=== PATIENT | male | born 1960 | race Caucasian/White ===

== ENCOUNTER → 2019-06-29 | Outpatient (CLI) | payer MEDICARE, SELFPAY | PROVIDERS: PCP Internal Medicine Nephrology; Visit Provider Emergency Medicine | DX: R35.1 Nocturia (principal); R06.02 Shortness of breath; I34.0 Nonrheumatic mitral (valve) insufficiency; I35.1 Nonrheumatic aortic (valve) insufficiency | CPT/HCPCS: 93306 ==

== ENCOUNTER 2020-02-16 13:11 | Outpatient (CLI) | payer MEDICARE, SELFPAY ==
--- NOTE | 2020-02-16 | ECHO_ITS ---
Patient Info Name: Ga Ashley Age: 59 years : 1960 Gender: Male Ht: 66 in Wt: 240 lbs BSA: 2.30 m2 HR: 80 bpm BP: 152 / 84 mmHg Heart Rhythm: Sinus Rhythm Technical Quality: Good Exam Date: 02/16/2020 1:49 PM Exam Location: [facility] Patient Status: Outpatient Admit Date: 02/16/2020 Staff Ordering Physician: Yo Marin MD Box Loader: Jesica Bynum RDCS Attending Provider: Yo Marin MD Referring Physician: Tomas PEOPLES; Exam Type: CA echo doppler color flow Study Info Indications - sob Complete two-dimensional, color flow and Doppler transthoracic echocardiogram is performed. Summary 1. Left ventricular chamber dimension is normal. 2. Left ventricular systolic function is normal, estimated at 60-65%. 3. There is moderately increased left ventricular wall thickness. 4. The left ventricular diastolic function is grade I diastolic dysfunction. 5. E/e' 6 is not elevated. 6. There is mild aortic valve sclerosis. 7. There is trace tricuspid valve regurgitation. 8. No pulmonary hypertension, estimated pulmonary arterial systolic pressure is 27 mmHg. Left Ventricle E/e' 6 is not elevated. Left ventricular chamber dimension is normal. Left ventricular systolic function is normal, estimated at 60-65%. There is moderately increased left ventricular wall thickness. The left ventricular diastolic function is grade I diastolic dysfunction. Right Ventricle Right ventricular chamber dimension is normal. Right ventricular systolic function is normal. Left Atria Left atrial chamber dimension is normal. Right Atria Right atrial chamber dimension is normal. Aortic Valve The aortic valve is trileaflet. There is mild aortic valve sclerosis. There is no aortic valve stenosis. There is no aortic valve regurgitation. Pulmonic Valve There is no pulmonic regurgitation. Mitral Valve There is no mitral valve stenosis. There is no mitral valve regurgitation. Tricuspid Valve There is trace tricuspid valve regurgitation. No pulmonary hypertension, estimated pulmonary arterial systolic pressure is 27 mmHg. Pericardium/Pleural There is no pericardial effusion. Inferior Vena Cava Normal inferior vena cava with >50% collapse upon inspiration consistent with normal right atrial pressure, 5 mmHg. Aorta The aortic root size at the sinus of Valsalva is normal. Left Ventricular Outflow Tract Name Value Normal LVOT 2D LVOT Diameter 2.0 cm LVOT Doppler LVOT Peak Gradient 9 mmHg LVOT Mean Gradient 5 mmHg LVOT VTI 25 cm LVOT VTI/AV VTI Ratio 0.7 LVOT Stroke Volume 76 ml LVOT CO 19.7 l/min LVOT CI 8.6 l/min/m2 Pulmonic Valve Name Value Normal PV Doppler
== END 2020-02-16 13:12 | disposition home or self-care (01) ==
PROVIDERS: PCP Emergency Medicine; Visit Provider Emergency Medicine
DX: R06.02 Shortness of breath (principal); R06.01 Orthopnea; I35.1 Nonrheumatic aortic (valve) insufficiency
CPT/HCPCS: 93306

== ENCOUNTER 2020-06-07 09:34 | Outpatient (CLI) | payer MEDICARE, SELFPAY ==
--- NOTE | 2020-06-07 11:00 | NEURO_ITS ---
Patient Number: [id number] Impression: # Insulin dependent diabetic complains of increasing numbness and weakness of hands. # Right Carpal Tunnel Syndrome. # Relative neuropathy involving median and ulnar nerves. # Abnormal needle/EMG that is neurogenic. Nerve Conduction Studies Anti Sensory Summary Table Stim Site NR Peak (ms) P-T Amp (?V) Site1 Site2 Delta-P (ms) Dist (cm) Hamilton (m/s) Right Median Anti Sensory (2-3nd Digit) Wrist 7.6 15.3 Wrist 2-3nd Digit 7.6 14.0 18 Wrist 6.3 33.8 Wrist 2-3nd Digit 7.6 14.0 18 Right Radial Anti Sensory (Base 1st Digit) Wrist 2.5 11.5 Wrist Base 1st Digit 2.5 0.0 Right Ulnar Anti Sensory (5th Digit) Wrist 6.3 26.0 Wrist 5th Digit 6.3 14.0 22 Motor Summary Table Stim Site NR Onset (ms) O-P Amp (mV) Site1 Site2 Delta-0 (ms) Dist (cm) Hamilton (m/s) Right Median Motor (Abd Poll Brev) Wrist 5.7 1.5 Elbow Wrist 6.3 27.0 43 Elbow 12.0 1.0 Right Ulnar Motor (Abd Dig Minimi) Wrist 3.4 2.5 A Elbow Wrist 6.8 29.0 43 A Elbow 10.2 1.0 B Elbow Wrist 4.8 21.0 44 B Elbow 8.2 0.2 F Wave Studies NR F-Lat (ms) L-R F-Lat (ms) Right Median (Mrkrs) (Abd Poll Brev) 35.96 Right Ulnar (Mrkrs) (Abd Dig Min) 31.93 EMG Side Muscle Nerve Root Ins Act Fibs Amp Dur Recrt Comment Right 1stDorInt Ulnar C8-T1 Nml Nml Nml >12ms Reduced Right Ext Indicis Radial (Post Int) C7-8 Nml Nml Nml >12ms Reduced Right Ext Digitorum Radial (Post Int) C7-8 Nml Nml Nml >12ms Reduced Right BrachioRad Radial C5-6 Nml Nml Nml Nml Nml Right PronatorTeres Median C6-7 Nml Nml Nml Nml Nml Right Abd Poll Brev Median C8-T1 Nml Nml Nml >12ms Reduced Right ABD Dig Min Ulnar C8-T1 Nml Nml Nml Nml Nml Right [place] Radial C7-8 Nml Nml Nml Nml Nml Right Brachialis Musculocut C5-6 Nml Nml Nml Nml Nml MTDD
== END 2020-06-07 09:35 | disposition home or self-care (01) ==
PROVIDERS: PCP Emergency Medicine; Visit Provider Emergency Medicine
DX: G56.01 Carpal tunnel syndrome, right upper limb (principal)
CPT/HCPCS: 95886; 95909

== ENCOUNTER 2021-12-21 14:48 | Emergency (ER) | payer MEDICARE, SELFPAY ==
--- NOTE | ~2021-12-21 | XR_ITS ---
EXAMINATION: XR chest 1V Exam Date/Time: 12/21/2021 15:10 CDT CLINICAL HISTORY: difficulty breathing confusion non smoker Comparison: None available. RESULT: Lines, tubes, and devices: None. Lungs and pleura: Clear. Cardiomediastinal silhouette: Stable cardiomediastinal silhouette. Other: No acute osseous or upper abdominal finding. IMPRESSION: No acute cardiopulmonary process Reviewed, dictated and finalized at location K.
[2021-12-21 15:00] VITALS: BP 165/107; PULSE 120; RESP 18; TEMP 36; O2SAT 96
[2021-12-21 15:04] LABS: Glucose Point of Care 108 mg/dl (65-105)
--- NOTE | 2021-12-21 15:06 | ED.GENADULT ---
HPI - General Adult General Chief complaint: Neuro Symptoms/Deficit Stated complaint: confusion/weakness limbs Time Seen by Provider: 12/21/21 14:51 Source: patient and RN notes reviewed Mode of arrival: ambulatory Limitations: no limitations History of Present Illness HPI narrative: Patient presents today complaining of bilateral hand weakness and dizziness that started at 7:00 this morning. He also reports shortness of breath with exertion x2 weeks. Denies chest pain, abdominal pain, headache, vision changes, nausea or vomiting. Reports feeling feverish yesterday, but did not check his temperature. He is diabetic with kidney failure , but no new edema. Blood sugar prior to arrival was 150, upon arrival was 108. States he may have taken a double dose of insulin this morning. Denies any cardiac history. Friend accompanying patient states patient was confused this morning to where he was. MD complaint: Weakness and dizziness, shortness of breath Related Data Home Medications Medication Instructions Recorded Confirmed amlodipine 2.5 mg tablet 2.5 mg PO DAILY 03/22/20 03/26/20 hydrocodone 5 mg-acetaminophen 325 1 tablet PO Q6H PRN 03/22/20 03/26/20 mg tablet labetalol 100 mg tablet 100 mg PO Q12H 03/22/20 03/26/20 lisinopril 10 1 tablet PO BID 03/22/20 03/26/20 mg-hydrochlorothiazide 12.5 mg tablet mirabegron 25 mg tablet,extended 25 mg PO DAILY 03/22/20 03/26/20 release 24 hr amitriptyline 12/21/21 atorvastatin 12/21/21 cholecalciferol (vitamin D3) 12/21/21 insulin regular hum U-500 conc 12/21/21 [Humulin R U-500 (Conc) Insulin] pregabalin 12/21/21 Allergies Allergy/AdvReac Type Severity Reaction Status Date / Time No Known Allergies Allergy Unverified 08/03/20 10:55 Review of Systems Review of Systems: CONSTITUTIONAL: Denies body aches, fever, chills, or sweats. EYES: Denies visual changes, redness, or discharge. ENT: Denies rhinorrhea, congestion, sore throat, or otalgia. CARDIOVASCULAR: Denies chest pain, palpitations, or edema. RESPIRATORY: Denies cough. + Shortness of breath GASTROINTESTINAL: Denies abdominal pain, nausea, vomiting, or diarrhea. GENITOURINARY: Denies dysuria or hematuria. SKIN: Denies rash, itching, or wounds. MUSCULOSKELETAL: Denies back pain, joint pain, or myalgia. NEUROLOGIC: Denies headache, numbness, tingling. + Bilateral hand weakness, dizziness PSYCH: Denies depression or anxiety. [facility] Past Medical History Medical History (Updated 12/21/21 @ 15:47 by Mitzi Vargas, [facility], ) Diabetes Neuropathy Peripheral neuropathy Family History Family History (System 08/03/20 @ 10:55 by Stacie Dorman) Sibling Patient's sister is in good health Patient's brother is in good health Mother Family history of lung cancer, Onset Age: 72 Family history of renal failure, Onset Age: 72 Patient's mother is Father Family history of lymphoma, Onset Age: 70 Social History Social History (System 08/03/20 @ 10:55 by Stacie Dorman) Smoking status: Never smoker Alcohol intake: never Comments At time of signature, I have reviewed and agree with nursing past medical, surgical, social and family history unless otherwise noted. Please see nursing chart for further information. There is no relevant family history pertinent to the presenting complaint Exam Narrative: GENERAL: Acute on chronically ill-appearing, well-nourished. HEAD: Normocephalic, atraumatic. EYES: EOMI. PERRL. No redness or drainage. Conjunctivae normal. ENT: Mucous membranes pink. Dry and cracked lips. NECK: Normal AROM. CHEST: Clear to auscultation.+ Tachypneic. Difficulty speaking in complete sentences. HEART: Regular rhythm. + Tachycardic. No murmur appreciated. Normal peripheral pulses. 1-2+ pedal edema. ABDOMEN: Soft, nontender, nondistended, normal active bowel sounds. MUSCULOSKELETAL: No bony tenderness. EXTREMITIES: Normal range of cheryle
--- NOTE | 2021-12-21 15:11 | ECG_ITS ---
Measurements Intervals [place] Rate: 114 P: 55 PA: 184 QRS: 6 QRSD: 100 T: 74 QT: 305 QTc: 420 Interpretive Statements SINUS TACHYCARDIA CANNOT RULE OUT SEPTAL MYOCARDIAL INFARCTION OLD NO PREVIOUS ECG AVAILABLE FOR COMPARISON Electronically Signed On 12-22-2021 7:58:24 CDT by Sebastian Charlton M.D.
--- NOTE | 2021-12-21 15:25 | PC.NURSE ---
this rn has checked in lobby and outside for friend. not seen at this time.
--- NOTE | 2021-12-21 15:28 | PC.NURSE ---
friend at bedside.
--- NOTE | 2021-12-21 15:28 | PC.NURSE ---
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
[2021-12-21] MEDS: ACETAMINOPHEN 500 MG TABLET 1000 MG PO (15:40)
[2021-12-21 15:50] VITALS: TEMP 38.8
== END 2021-12-21 15:50 | disposition left against medical advice (07) ==
PROVIDERS: Emergency Provider Nurse Practitioner; PCP Emergency Medicine
DX: R06.02 Shortness of breath (principal); R53.1 Weakness; Z20.822 Contact with and (suspected) exposure to COVID-19; E11.42 Type 2 diabetes mellitus with diabetic polyneuropathy
CPT/HCPCS: 71045; 82948; 87426; 87804; 93005; 99213; A9270; C9803; G0463

== ENCOUNTER 2022-01-29 12:57 | Outpatient (RCR) | payer MEDICARE, SELFPAY ==
[2022-01-29 13:00] VITALS: BMI 43.3
[2022-01-29 13:10] VITALS: BMI 43.3
== END 2022-04-24 14:47 | disposition home or self-care (01) ==
LOC: ANHDMC 12:57
PROVIDERS: PCP Emergency Medicine; Visit Provider Internal Medicine Endocrinology, Diabetes & Metabolism
DX: E11.65 Type 2 diabetes mellitus with hyperglycemia (principal); Z71.3 Dietary counseling and surveillance
CPT/HCPCS: 97802; 99199

== ENCOUNTER 2022-07-26 11:03 | Outpatient (CLI) | payer MEDICARE, SELFPAY ==
--- NOTE | ~2022-07-26 | XR_ITS ---
EXAMINATION: XR chest 2V Exam Date/Time: 07/26/2022 11:17 DISTRICT SERVICE MANAGER HISTORY: Dyspnea Comparison: 12/21/2021. RESULT: Lines, tubes, and devices: None. Lungs and pleura: Clear. Cardiomediastinal silhouette: Mild cardiac megaly. Aortic arch calcification. Other: No acute osseous or upper abdominal finding. IMPRESSION: No acute cardiopulmonary process. Reviewed, dictated and finalized at location K. RICT SERVICE MANAGER
== END 2022-07-26 11:04 ==
LOC: MICIMG 11:05
PROVIDERS: PCP Emergency Medicine; Visit Provider Emergency Medicine
DX: R41.82 Altered mental status, unspecified (principal); R06.00 Dyspnea, unspecified
CPT/HCPCS: 71046

== ENCOUNTER 2023-07-09 08:10 | Emergency (ER) | payer MEDICARE, SELFPAY ==
[2023-07-09] VITALS (8 sets, daily range): BP systolic 112–184; BP diastolic 58–98; PULSE 74–85; RESP 18–20; TEMP 36.9–37; O2SAT 95–99
--- NOTE | ~2023-07-09 | XR_ITS ---
EXAMINATION: XR chest 1V portable INDICATION: Weakness TECHNIQUE: Portable AP chest at 1041 hours COMPARISON: 07/26/2022 FINDINGS: There are minimal airspace opacities of the left lung base. No pleural effusion or pneumoth orax. Cardiomegaly is noted. IMPRESSION: 1. Left basilar airspace opacities, consistent with atelectasis versus pneumonia. Reviewed, dictated and finalized at location L. CTOR OPERATIONS IMPRESSION: 1. Left basilar airspace opacities, consistent with atelectasis versus pneumoni a.
[2023-07-09 08:55] LABS: Basophils Absolute Auto 0.1 K/mm3 (0.0-0.1); Basophils Percent Auto 0.6 % (0.2-1.2); Eosinophils Absolute Auto 0.1 K/mm3 (0-0.3); Eosinophils Percent Auto 1.6 % (0-4.4); Hematocrit 33.6 % (42.0-52.0); Hemoglobin 11.1 g/dL (14.0-18.0); Immature Granulocyte Absolute 0.03 K/mm3 (0.00-0.031); Immature Granulocyte Percent A 0.3 % (0-0.5); Lymphocytes Absolute Auto 1.02 K/mm3 (0.9-3.2); Lymphocytes Percent Auto 11.6 % (18.3-44.2); Mean Corpuscular Hemoglobin 29.1 pg (26-34); Mean Corpuscular Volume 88.2 fl (80-100); Mean Platelet Volume 10.7 fl (7.4-10.4); Monocytes Absolute Auto 1.1 K/mm3 (0.1-0.6); Monocytes Percent Auto 12.8 % (2.6-8.5); Neutrophils Absolute Auto 6.4 K/mm3 (1.3-6.7); Neutrophils Percent Auto 73.1 % (45.5-73.1); Platelet Count Result 175 k/mm3 (150-375); Red Blood Count 3.81 M/mm3 (4.6-6.20); Red Cell Distribution Width 13.2 % (11.5-14.5); White Blood Count 8.8 K/mm3 (4.5-10.0)
[2023-07-09 09:04] LABS: Alanine Aminotransferase 16 U/L (6-50); Albumin Level 3.9 g/dL (3.5-5.1); Alkaline Phosphatase 64 U/L (38-126); Anion Gap 12 mmol/L (8-16); Aspartate Amino Transferase 19 U/L (17-59); Bilirubin,Total 0.5 mg/dL (0.2-1.3); Blood Urea Nitrogen 41 mg/dL (9-20); Calcium 8.7 mg/dL (8.4-10.2); Carbon Dioxide 27 mmol/L (22-30); Chloride 95 mmol/L (98-107); Estimated CRCL calculation 11 ml/min; Estimated Glomerular Filt Rate 7; Glucose 220 mg/dL (65-110); Potassium 3.8 mmol/L (3.4-5.0); Sodium 134 mmol/L (137-145)
[2023-07-09 09:09] LABS: INR 1.2; Prothrombin Time 15.4 Seconds (11.1-14.7)
[2023-07-09 09:10] LABS: Partial Thromboplastin Time 41.5 SECONDS (22.3-36.8)
--- NOTE | 2023-07-09 09:10 | ED.GENADULT ---
HPI - General Adult General Chief complaint: Recheck/Abnormal Lab/Rx Stated complaint: hypotensive/lethargic Time Seen by Provider: 07/09/23 08:23 History of Present Illness HPI narrative: Patient is a 62-year-old male who presents ER with low blood pressure that occurred during dialysis. He got 35 minutes of a 3-hour dialysis session. His blood pressure dropped to around 100 systolic. He received 200 mL bolus. Patient reports some generalized weakness and fatigue. He has had mild cough. Endorses subjective fevers and chills. Related Data Home Medications Medication Instructions Recorded Confirmed hydrocodone 5 mg-acetaminophen 325 1 tablet PO Q6H PRN 03/22/20 07/09/22 mg tablet ([place]) amitriptyline 50 mg tablet 12/21/21 07/09/22 atorvastatin 40 mg tablet 12/21/21 07/09/22 cholecalciferol (vitamin D3) 50 12/21/21 07/09/22 mcg (2,000 unit) capsule insulin regular hum U-500 conc 500 12/21/21 07/09/22 unit/mL subcutaneous soln (Humulin R U-500 (Concentrated) Insulin) albuterol sulfate 90 mcg/actuation 2 inh inhalation Q4-6H PRN 07/09/22 07/09/22 aerosol inhaler shortness of breath or wheezing amlodipine 10 mg tablet 10 mg PO DAILY 07/09/22 07/09/22 calcitriol 0.5 mcg capsule 1 mcg PO DAILY 07/09/22 07/09/22 hydralazine 10 mg tablet 10 mg PO BID 07/09/22 07/09/22 insulin pump cart,cont inf,BT #5 ea 07/09/22 07/09/22 (Omnipod Dash Pods (Gen 4) subcutaneous cartridge) lisinopril 20 mg tablet 20 mg PO BID 07/09/22 07/09/22 Allergies Allergy/AdvReac Type Severity Reaction Status Date / Time No Known Allergies Allergy Verified 07/09/23 08:26 Review of Systems Review of Systems: All systems reviewed & are unremarkable except as noted in HPI and below Constitutional: Constitutional: Reports chills, Reports fatigue and Reports fever(s) ENT: Reports nasal congestion and Reports sore throat Cardiovascular: Cardiovascular: Reports no additional cardiovascular complaints Respiratory: Respiratory: Reports cough, Denies dyspnea and Denies wheezing Gastrointestinal: Gastrointestinal: Reports no additional gastrointestinal complaints Neurologic: Reports system reviewed and no additional complaints, except as documented [facility] Past Medical History Medical History (Updated 07/09/23 @ 14:17 by Solo Hernandez MD) BPH NOS w ur obs/LUTS CKD (chronic kidney disease) stage 4, GFR 15-29 ml/min Diabetes Erectile dysfunction due to diseases classified elsewhere Essential (primary) hypertension Lumbago with sciatica, right side Neuropathy Overweight (03/13/16) Peripheral neuropathy Polyarthritis Pure hypercholesterolemia Type 2 diabetes mellitus with diabetic neuropathy Surgical History Surgical History (Updated 07/09/23 @ 12:30 by Solo Hernandez MD) Hemodialysis access, AV graft Family History Family History (System 08/03/20 @ 10:55 by Stacie Dorman) Sibling Patient's sister is in good health Patient's brother is in good health Mother Family history of lung cancer, Onset Age: 72 Family history of renal failure, Onset Age: 72 Patient's mother is Father Family history of lymphoma, Onset Age: 70 Social History Social History (System 08/03/20 @ 10:55 by Stacie Dorman) Smoking status: Never smoker Alcohol intake: never Spiritual care concerns: No Exam Narrative: GENERAL: Chronically ill-appearing, well-nourished, and in no acute distress. HEAD: Normocephalic, atraumatic. EYES: PERRL and EOMI. ENT: Mucous membranes moist. CHEST: Clear to auscultation. No respiratory distress. HEART: Regular rate and rhythm. Normal peripheral pulses. ABDOMEN: Soft, nontender, nondistended. EXTREMITIES: Normal range of motion. No edema. SKIN: Warm, dry, no rash. NEURO: Alert and oriented x3. PSYCH: Normal mood and affect. Course Course Emergency Course: Patient normotensive here. No hypoxia. No dyspnea. Patient COVID-positive wit
[2023-07-09 09:31] LABS: Influenza A QL RT-PCR Negative (Negative); Influenza B QL RT-PCR Negative (Negative); SARS-CoV-2 RNA PCR Positive (Negative)
--- NOTE | 2023-07-09 10:05 | ECG_ITS ---
Measurements Intervals [place] Rate: 79 P: 55 AR: 196 QRS: -2 QRSD: 76 T: 48 QT: 398 QTc: 458 Interpretive Statements SINUS RHYTHM CANNOT RULE OUT SEPTAL INFARCT, AGE INDETERMINATE NONSPECIFIC ST & T-WAVE ABNORMALITY- LAT/HIGH LAT LEADS BASELINE ARTIFACT- II, III, AVF ABNORMAL ECG COMPARED TO ECG 12/21/2021 15:02:24 SINUS RHYTHM NOW PRESENT Electronically Signed On 07-09-2023 10:12:11 STEAM ROOM ATTENDANT by Bulmaro Hurley D.O.
[2023-07-09 12:23] LABS: Troponin I 0.063 ng/mL (0.000-0.034)
== END 2023-07-09 14:00 | disposition home or self-care (01) ==
PROVIDERS: Emergency Provider Emergency Medicine; PCP Emergency Medicine
DX: U07.1 COVID-19 (principal); E11.22 Type 2 diabetes mellitus with diabetic chronic kidney disease; I12.9 Hypertensive chronic kidney disease with stage 1 through stage 4 chronic kidney disease, or unspecified chronic kidney disease; N18.4 Chronic kidney disease, stage 4 (severe); Z99.2 Dependence on renal dialysis; E11.42 Type 2 diabetes mellitus with diabetic polyneuropathy; E78.00 Pure hypercholesterolemia, unspecified; N40.1 Benign prostatic hyperplasia with lower urinary tract symptoms; Z79.4 Long term (current) use of insulin; R94.31 Abnormal electrocardiogram [ECG] [EKG]
CPT/HCPCS: 36415; 71045; 80053; 84484; 85025; 85610; 85730; 87636; 93005; 99284

== ENCOUNTER 2023-08-15 08:04 | Emergency (ER) | payer MEDICARE, SELFPAY ==
[2023-08-15] VITALS (9 sets, daily range): BP systolic 107–119; BP diastolic 64–71; PULSE 69–74; RESP 13–20; TEMP 36.6; O2SAT 94–98
--- NOTE | ~2023-08-15 | CT_ITS ---
EXAMINATION: CT cervical spine wo con DATE: 08/15/2023 08:36 INDICATION: Neck injury. Neck pain. TECHNIQUE: Computed tomography (CT) of the cervical spine was performed without intravenous contrast. The dose-length product was 501 mGy-cm. Automated exposure control and iterative reconstruction tech nique were employed. COMPARISON: None FINDINGS: There is reversal of cervical lordosis. There is degenerative anterolisthesis at C3-4 and C 4-5. There is moderate disc narrowing at C5-6. There are marginal osteophytes along the dorsal endpla bay at C5-6. There is uncinate hypertrophy at C3-4 and C5-6. There is facet hypertrophy at C3-4. Cran iovertebral junction within normal limits. No evidence for perched facet. There are groundglass opaci ties in the right apex, suspicious for pneumonia. IMPRESSION: 1. No acute abnormality of the cervical spine. 2: Moderate cervical spondylosis with reversal of cervical lordosis. 3: Groundglass opacities right upper lobe, suspicious for pneumonia. Reviewed, dictated and finalized at location A. NICAL SOLUTION ARCHITECT
--- NOTE | ~2023-08-15 | CT_ITS ---
EXAMINATION: CT BRAIN W/O DATE: 08/15/2023 08:36 INDICATION: Head injury. TECHNIQUE: Computed tomography (CT) of the head was performed without intravenous contrast. The dose- length product was 605.33 mGy-cm. Automated exposure control and iterative reconstruction technique w ere employed. COMPARISON: No prior studies for comparison. FINDINGS: Normal brain parenchymal volume for age. Normal red-white differentiation. No acute intrac ranial hemorrhage, infarction, mass or mass effect. There are scattered mild periventricular and subc ortical white matter changes, most likely related to small vessel ischemic disease (microangiopathy). No ventriculomegaly or midline shift. Midline sagittal images demonstrate a normal corpus callosum, c raniovertebral junction and sella turcica. Basilar cisterns are patent. Paranasal sinuses and mastoids are pneumatized. No depressed skull fractures. IMPRESSION: 1. No acute intracranial abnormality. Reviewed, dictated and finalized at location A. IFIED MASTER SAFECRACKER
--- NOTE | 2023-08-15 08:15 | ED.GENADULT ---
HPI - General Adult General Chief complaint: Fall Stated complaint: glf, from dialysis Time Seen by Provider: 08/15/23 08:04 History of Present Illness HPI narrative: 62-year-old male presenting to the emergency department for evaluation after having a head injury at dialysis. Patient states he was at dialysis and had approximately 1 hour of dialysis when he reportedly dropped something and was leading to pick it up but leaned too far and fell forward striking his head on the ground. Patient denies any loss of consciousness. Patient does have a 3 cm laceration over his left eye brow. patient denies any other pain or injury. Patient is alert and oriented X4. Patient states that his weight was not elevated significantly today compared to when he ended dialysis so he was not going to get the full dialysis session today Related Data Home Medications Medication Instructions Recorded Confirmed hydrocodone 5 mg-acetaminophen 325 1 tablet PO Q6H PRN 03/22/20 07/09/22 mg tablet ([place]) amitriptyline 50 mg tablet 12/21/21 07/09/22 atorvastatin 40 mg tablet 12/21/21 07/09/22 cholecalciferol (vitamin D3) 50 12/21/21 07/09/22 mcg (2,000 unit) capsule insulin regular hum U-500 conc 500 12/21/21 07/09/22 unit/mL subcutaneous soln (Humulin R U-500 (Concentrated) Insulin) albuterol sulfate 90 mcg/actuation 2 inh inhalation Q4-6H PRN 07/09/22 07/09/22 aerosol inhaler shortness of breath or wheezing amlodipine 10 mg tablet 10 mg PO DAILY 07/09/22 07/09/22 calcitriol 0.5 mcg capsule 1 mcg PO DAILY 07/09/22 07/09/22 hydralazine 10 mg tablet 10 mg PO BID 07/09/22 07/09/22 insulin pump cart,cont inf,BT #5 ea 07/09/22 07/09/22 (Omnipod Dash Pods (Gen 4) subcutaneous cartridge) lisinopril 20 mg tablet 20 mg PO BID 07/09/22 07/09/22 Allergies Allergy/AdvReac Type Severity Reaction Status Date / Time No Known Allergies Allergy Verified 08/15/23 08:15 Review of Systems Review of Systems: All systems reviewed & are unremarkable except as noted in HPI and below PMFSH Past Medical History Medical History (Updated 08/15/23 @ 09:11 by Wilfredo Montanez MD) BPH NOS w ur obs/LUTS CKD (chronic kidney disease) stage 4, GFR 15-29 ml/min Diabetes Erectile dysfunction due to diseases classified elsewhere Essential (primary) hypertension Lumbago with sciatica, right side Neuropathy Overweight (03/13/16) Peripheral neuropathy Polyarthritis Pure hypercholesterolemia Type 2 diabetes mellitus with diabetic neuropathy Surgical History Surgical History (Updated 07/09/23 @ 12:30 by Solo Hernandez MD) Hemodialysis access, AV graft Family History Family History (System 08/03/20 @ 10:55 by Stacie Dorman) Sibling Patient's sister is in good health Patient's brother is in good health Mother Family history of lung cancer, Onset Age: 72 Family history of renal failure, Onset Age: 72 Patient's mother is Father Family history of lymphoma, Onset Age: 70 Social History Social History (System 08/03/20 @ 10:55 by Stacie Dorman) Smoking status: Never smoker Alcohol intake: never Spiritual care concerns: No Exam Narrative: APPEARANCE: Well appearing, no pain, no distress, well-nourished. HEAD: normocephalic, atraumatic. EYES: PERRLA/EOMI, conjunctivae clear. NOSE: Normal no drainage EARS:TMS clear with good light reflex. THROAT: Pharynx clear, no exudate. NECK: Supple. No adenopathy, no masses. RESPIRATORY: Airway patent, respirations nonlabored. Clear to auscultation bilaterally, no rales, rhonchi, wheezing. CARDIOVASCULAR: Regular rate and rhythm without murmurs rubs or gallops. ABDOMINAL: Soft, nontender, nondistended, normal bowel sounds MUSCULOSKELETAL: Moves all extremities. Strength/ROM intact, No edema, No calf tenderness. NEURO: Alert. Cranial nerves II through XII intact. grossly intact SKIN: 3 cm laceration over left eyebrow Course Cou
[2023-08-15 08:35] LABS: Basophils Absolute Auto 0.1 K/mm3 (0.0-0.1); Basophils Percent Auto 0.7 % (0.2-1.2); Eosinophils Absolute Auto 0.3 K/mm3 (0-0.3); Eosinophils Percent Auto 2.5 % (0-4.4); Hematocrit 29.4 % (42.0-52.0); Hemoglobin 9.4 g/dL (14.0-18.0); Immature Granulocyte Absolute 0.05 K/mm3 (0.00-0.031); Immature Granulocyte Percent A 0.4 % (0-0.5); Lymphocytes Absolute Auto 1.19 K/mm3 (0.9-3.2); Lymphocytes Percent Auto 10.1 % (18.3-44.2); Mean Corpuscular Hemoglobin 29.3 pg (26-34); Mean Corpuscular Volume 91.6 fl (80-100); Mean Platelet Volume 11.4 fl (7.4-10.4); Monocytes Absolute Auto 0.8 K/mm3 (0.1-0.6); Monocytes Percent Auto 6.6 % (2.6-8.5); Neutrophils Absolute Auto 9.4 K/mm3 (1.3-6.7); Neutrophils Percent Auto 79.7 % (45.5-73.1); Platelet Count Result 245 k/mm3 (150-375); Red Blood Count 3.21 M/mm3 (4.6-6.20); Red Cell Distribution Width 13.2 % (11.5-14.5); White Blood Count 11.8 K/mm3 (4.5-10.0)
[2023-08-15 08:52] LABS: Alanine Aminotransferase 15 U/L (6-50); Albumin Level 3.9 g/dL (3.5-5.1); Alkaline Phosphatase 67 U/L (38-126); Anion Gap 10 mmol/L (8-16); Aspartate Amino Transferase 23 U/L (17-59); Bilirubin,Total 0.7 mg/dL (0.2-1.3); Blood Urea Nitrogen 37 mg/dL (9-20); Carbon Dioxide 29 mmol/L (22-30); Chloride 95 mmol/L (98-107); Estimated CRCL calculation 13 ml/min; Estimated Glomerular Filt Rate 8; Glucose 306 mg/dL (65-110); Potassium 4.4 mmol/L (3.4-5.0); Sodium 134 mmol/L (137-145)
== END 2023-08-15 09:33 | disposition home or self-care (01) ==
PROVIDERS: Emergency Provider Emergency Medicine; PCP Emergency Medicine
DX: S01.112A Laceration without foreign body of left eyelid and periocular area, initial encounter (principal); E11.22 Type 2 diabetes mellitus with diabetic chronic kidney disease; I12.9 Hypertensive chronic kidney disease with stage 1 through stage 4 chronic kidney disease, or unspecified chronic kidney disease; N18.4 Chronic kidney disease, stage 4 (severe); Z99.2 Dependence on renal dialysis; E11.42 Type 2 diabetes mellitus with diabetic polyneuropathy; E78.00 Pure hypercholesterolemia, unspecified; N40.0 Benign prostatic hyperplasia without lower urinary tract symptoms; M19.90 Unspecified osteoarthritis, unspecified site; E66.3 Overweight; Z68.38 Body mass index [BMI] 38.0-38.9, adult; M47.812 Spondylosis without myelopathy or radiculopathy, cervical region; R91.8 Other nonspecific abnormal finding of lung field; Z79.4 Long term (current) use of insulin; W18.39XA Other fall on same level, initial encounter
CPT/HCPCS: 12013; 36415; 70450; 72125; 80053; 85025; 99284

== ENCOUNTER → 2023-08-26 15:18 | Outpatient (CLI) | payer MEDICARE, SELFPAY ==
--- NOTE | ~2023-08-26 | XR_ITS ---
EXAMINATION: XR chest 2V Exam Date/Time: 08/26/2023 15:30 GENERAL INTERNAL MEDICINE PHYSICIAN HISTORY: J18.0 PNEUMONIA DX 4 DAYS AGO Comparison: 07/09/2023. RESULT: Lines, tubes, and devices: Soft tissue anchor in the right humeral head. Lungs and pleura: Granulomatous calcification, otherwise clear. Cardiomediastinal silhouette: Stable. Other: No acute osseous or upper abdominal finding. IMPRESSION: No acute cardiopulmonary process. Reviewed, dictated and finalized at location K. RAL INTERNAL MEDICINE PHYSICIAN
== END ==
PROVIDERS: PCP Emergency Medicine; Visit Provider Emergency Medicine
DX: J18.0 Bronchopneumonia, unspecified organism (principal)
CPT/HCPCS: 71046

== ENCOUNTER 2023-09-03 12:53 | Outpatient (CLI) | payer MEDICARE, SELFPAY ==
[2023-09-03 14:28] LABS: Influenza A QL RT-PCR Negative (Negative); Influenza B QL RT-PCR Negative (Negative); RSV RNA, RT-PCR Negative (Negative); SARS-CoV-2 RNA PCR Negative (Negative)
== END 2023-09-03 12:54 | disposition home or self-care (01) ==
PROVIDERS: PCP Emergency Medicine; Visit Provider Emergency Medicine
DX: J20.9 Acute bronchitis, unspecified (principal); Z20.822 Contact with and (suspected) exposure to COVID-19
CPT/HCPCS: 87637

== ENCOUNTER 2023-12-11 12:01 | Outpatient (CLI) | payer MEDICARE, SELFPAY ==
--- NOTE | ~2023-12-11 | XR_ITS ---
EXAMINATION: XR chest 2V 12/11/2023 12:14 INDICATION: Cough. Pneumonia. PROCEDURE: 2 view chest COMPARISON: No prior studies for comparison. FINDINGS: The lungs are clear. The cardiomediastinal silhouette is mildly enlarged. There are no ple ural effusions. There is no pneumothorax suspected. IMPRESSION: 1: NO ACUTE CARDIOPULMONARY DISEASE. Reviewed, dictated and finalized at location A.
== END 2023-12-11 12:02 | disposition home or self-care (01) ==
PROVIDERS: PCP Emergency Medicine; Visit Provider Emergency Medicine
DX: R05.9 Cough, unspecified (principal)
CPT/HCPCS: 71046

== ENCOUNTER 2023-12-16 15:33 | Outpatient (CLI) | payer MEDICARE, SELFPAY ==
--- NOTE | 2023-12-16 | ECHO_ITS ---
Patient Info Name: Rolando Ashley Age: 63 years : 1960 Gender: Male Ht: 66 in Wt: 240 lbs BSA: 2.30 m2 HR: 84 bpm BP: 169 / 96 mmHg Heart Rhythm: Indeterminant Technical Quality: Good Exam Date: 12/16/2023 3:51 PM Exam Location: Echo Lab Patient Status: Outpatient Admit Date: 12/16/2023 Staff Ordering Physician: Carline Gomez APRN Director Of Sustainable Design: Ethan Peterson RDCS Attending Provider: Carline Gomez APRN Referring Physician: Jason GRAHAM; Exam Type: CA echo doppler color flow Study Info Indications - SOB, CARDIAC ARRYTHMIA Complete two-dimensional, color flow and Doppler transthoracic echocardiogram is performed. Summary 1. Complete two-dimensional, color flow and Doppler transthoracic echocardiogram is performed. 2. Left ventricular chamber dimension is mildly enlarged. 3. Left ventricular systolic function is mildly reduced, estimated at 50-55%. 4. There is mildly increased left ventricular wall thickness. 5. The left ventricular diastolic function is grade II diastolic dysfunction. 6. The basal inferior wall, mid inferior wall, basal anteroseptal, and mid anteroseptal are hypokinetic. 7. Right ventricular chamber dimension is moderately enlarged. 8. Right ventricular systolic function is reduced. 9. Left atrial chamber dimension is moderately enlarged. 10. Right atrial chamber dimension is moderately enlarged. 11. There is mild to moderate aortic valve regurgitation. 12. There is moderate aortic valve sclerosis. 13. The aortic valve is possibly bicuspid. 14. There is moderate to severe mitral valve regurgitation. 15. There is moderate tricuspid valve regurgitation. 16. Moderate pulmonary hypertension, estimated pulmonary arterial systolic pressure is 51 mmHg. Left Ventricle Left ventricular chamber dimension is mildly enlarged. Left ventricular systolic function is mildly reduced, estimated at 50-55%. There is mildly increased left ventricular wall thickness. The left ventricular diastolic function is grade II diastolic dysfunction. The basal inferior wall, mid inferior wall, basal anteroseptal, and mid anteroseptal are hypokinetic. All other leggett appear normal. Right Ventricle Right ventricular chamber dimension is moderately enlarged. Right ventricular systolic function is reduced. Left Atria Left atrial chamber dimension is moderately enlarged. Right Atria Right atrial chamber dimension is moderately enlarged. Atrial Septum Intact interatrial septum visualized by color flow imaging. Aortic Valve The aortic valve is possibly bicuspid. There is moderate aortic valve sclerosis. There is no aortic valve stenosis. There is mild to moderate aortic valve regurgitation. Pulmonic Valve The pulmonic valve is normal. There is no pulmonic valve stenosis. There is trace pulmonic regurgitation. Mitral Valve The mitral valve has normal leaflets. There is no mitral valve stenosis. There is moderate to severe mitral valve regurgitation. Tricuspid Valve The tricuspid valve leaflets are normal. There is no significant tricuspid valve stenosis. There is moderate tricuspid valve regurgitation. Moderate pulmonary hypertension, estimated pulmonary arterial systolic pressure is 51 mmHg. Pericardium/Pleural The pericardium appears normal. There is trivial pericardial effusion. Inferior Vena Cava Normal inferior vena cava with <50% collapse upon inspiration consistent with elevated right atrial pressure, 10 mmHg. Aorta The aortic root size at the sinus of Valsalva is normal. Left Ventricular Outflow Tract ---------
== END 2023-12-16 15:34 | disposition home or self-care (01) ==
LOC: ANHCARD 15:36
PROVIDERS: PCP Emergency Medicine; Visit Provider Nurse Practitioner Family
DX: R06.01 Orthopnea (principal); I08.3 Combined rheumatic disorders of mitral, aortic and tricuspid valves
CPT/HCPCS: 93306

== ENCOUNTER 2024-01-12 17:54 | Emergency (ER) | payer MEDICARE, SELFPAY ==
[2024-01-12 18:14] VITALS: BP 180/93; PULSE 86; RESP 16; TEMP 36.9; O2SAT 96
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
== END 2024-01-12 18:52 | disposition left against medical advice (07) ==
PROVIDERS: Emergency Provider Nurse Practitioner; PCP Emergency Medicine
DX: G25.81 Restless legs syndrome (principal); M54.50 Low back pain, unspecified; I12.9 Hypertensive chronic kidney disease with stage 1 through stage 4 chronic kidney disease, or unspecified chronic kidney disease; E11.22 Type 2 diabetes mellitus with diabetic chronic kidney disease; N18.4 Chronic kidney disease, stage 4 (severe); Z99.2 Dependence on renal dialysis; Z79.4 Long term (current) use of insulin; E11.42 Type 2 diabetes mellitus with diabetic polyneuropathy; E78.00 Pure hypercholesterolemia, unspecified; N40.1 Benign prostatic hyperplasia with lower urinary tract symptoms
CPT/HCPCS: 99212; G0463

== ENCOUNTER 2024-03-23 18:39 | Inpatient (IN) | payer MEDICARE, SELFPAY ==
[2024-03-23] VITALS (11 sets, daily range): BP systolic 153–208; BP diastolic 76–113; PULSE 91–99; RESP 18–29; TEMP 36.3–36.8; O2SAT 92–96; BMI 38.6
--- NOTE | ~2024-03-23 | XR_ITS ---
EXAMINATION: XR chest 2V Exam Date/Time: 03/23/2024 18:50 CDT HISTORY: chest pain, HTN Comparison: 12/11/2023. RESULT: Lines, tubes, and devices: None. Lungs and pleura: Lobar consolidation involving the lingula. Cardiomediastinal silhouette: Stable. Other: No acute osseous or upper abdominal finding. IMPRESSION: Findings concerning for lingular pneumonia. Reviewed, dictated and finalized at location K.
--- NOTE | ~2024-03-23 | CT_ITS ---
EXAMINATION: CTA chest abdomen pelvis DATE: 03/23/2024 20:03 INDICATION: CP at superior aspect of heart; r/o dissection . TECHNIQUE: Computed tomography (CT) of the chest, abdomen, and pelvis was performed with 100 mL Omnip aque-350 intravenous contrast in the arterial phase. Automated exposure control and iterative reconst ruction technique were employed. The dose-length product was 1569.26 mGy-cm. COMPARISON: None FINDINGS: Motion artifact in the lower chest and abdomen. CHEST: Thoracic aorta: No significant dilation. No dissection. Mild arch calcification. Lung parenchyma and airways: Lungs and airways are clear. Thoracic inlet, axillae and chest wall: No thyroid or soft tissue mass. No axillary lymphadenopathy. Mediastinum: No mass or lymphadenopathy. Heart and pericardium: Normal heart size. Moderate volume pericardial effusion with subtle enhancemen t along the visceral and parietal surfaces. Coronary artery calcifications: Absent. Pleura: No effusion or mass. Thoracic bones: No acute osseous finding in the chest. ABDOMEN/PELVIS: Liver: Normal. Biliary/Gallbladder: Gallbladder is normal. No bile duct dilation. Pancreas: No mass or duct dilation. Spleen: Normal. Adrenals:No mass. Kidneys: No suspicious mass, obstructing stone, or hydronephrosis. Bilateral renal atrophy. GI tract: No small or large bowel dilation. Normal appendix. Diverticulosis without diverticulitis. Mesentery/Peritoneum: No ascites, mass, or free air. Retroperitoneum: No mass Atherosclerotic abdominal aortic and/or arterial calcifications. No occlusio n, dissection, or aneurysm. No severe major branch vessel stenosis. Pelvis: Incompletely distended urinary bladder. Moderate bladder wall thickening. Soft Tissues: Soft tissues and body wall unremarkable. Abdominopelvic bones: No acute osseous finding in the abdomen/pelvis. Uncomplicated appearing right femoral hardware. IMPRESSION: Moderate volume pericardial effusion, with subtle peripheral enhancement may be secondary to the pres ence of pericarditis. Cystitis versus urinary bladder wall thickening from incomplete distention, correlate with urinalysis . Reviewed, dictated and finalized at location K. IMPRESSION: Moderate volume pericardial effusion, with subtle peripheral enhancement may be secondary to the presence of pericarditis. Cystitis versus urinary bladder wall thickening from incomplete distention, cor relate with urinalysis.
--- NOTE | 2024-03-23 18:40 | ECG_ITS ---
Test Date: 2024-03-23 18:43:05 Measurements Intervals [place] Rate: 97 P: 44 CT: 170 QRS: -5 QRSD: 92 T: 72 QT: 341 QTc: 435 Interpretive Statements SINUS RHYTHM POSSIBLE LEFT ATRIAL ENLARGEMENT CONSIDER ANTERIOR INFARCT, AGE INDETERMINATE CONSIDER INFERIOR INFARCT, AGE INDETERMINATE BORDERLINE ST-T WAVE ABNORMALITY- HIGH LATERAL LEADS BASELINE ARTIFACT- I, II, III, AVR, AVL, AVF ABNORMAL ECG No previous ECG available for comparison Electronically Signed On 03-24-2024 06:01:03 CDT by Bulmaro Hurley D.O.
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
[2024-03-23] MEDS: MORPHINE SULFATE (*CRX) 4 MG/ML INJ IV PUSH (19:29)
[2024-03-23 19:31] LABS: Hematocrit 36.8 % (42.0-52.0); Hemoglobin 12.4 g/dL (14.0-18.0); Mean Corpuscular HGB Conc 33.7 g/dl (32-36); Mean Corpuscular Hemoglobin 29.5 pg (26-34); Mean Corpuscular Volume 87.4 fl (80-100); Mean Platelet Volume 11.2 fl (7.4-10.4); Platelet Count Result 251 k/mm3 (150-375); Red Blood Count 4.21 M/mm3 (4.6-6.20); Red Cell Distribution Width 13.6 % (11.5-14.5); White Blood Count 15.3 K/mm3 (4.5-10.0)
[2024-03-23 19:40] LABS: INR 1.3; Prothrombin Time 16.8 Seconds (11.1-14.7)
[2024-03-23 19:41] LABS: Partial Thromboplastin Time 40.4 Seconds (22.3-36.8)
[2024-03-23 19:46] LABS: Alanine Aminotransferase 20 U/L (6-50); Alkaline Phosphatase 83 U/L (38-126); Anion Gap 21 mmol/L (4-12); Aspartate Amino Transferase 29 U/L (17-59); Bilirubin,Total 0.8 mg/dL (0.2-1.3); Blood Urea Nitrogen 55 mg/dL (9-20); Calcium 9.5 mg/dL (8.4-10.2); Carbon Dioxide 21 mmol/L (22-30); Chloride 89 mmol/L (98-107); Creatine Kinase 76 U/L (55-170); Estimated CRCL calculation 9 ml/min; Estimated Glomerular Filt Rate 6; Glucose 236 mg/dL (65-110); Lipase 152 U/L (23-300); Magnesium 1.8 mg/dL (1.6-2.3); Potassium 5.6 mmol/L (3.4-5.0); Sodium 131 mmol/L (137-145)
[2024-03-23] MEDS: hydrALAZINE HCL 20 MG/ML VIAL 10 MG IV PUSH (20:01)
[2024-03-23 20:07] LABS: Influenza A QL RT-PCR Negative (Negative); Influenza B QL RT-PCR Negative (Negative); RSV RNA, RT-PCR Negative (Negative); SARS-CoV-2 RNA PCR Negative (Negative)
[2024-03-23 20:12] LABS: Band Neutrophils Percent 1 % (0-6); Lymphocytes Absolute Manual 0.15 K/mm3 (1.1-4.5); Monocytes Absolute Manual 1.68 K/mm3 (0.1-0.90); Monocytes Percent Manual 11 % (3-9); Neutrophils Absolute Manual 13.31 K/mm3 (1.3-6.7); Neutrophils Percent Manual 86 % (46-73); Nucleated Red Blood Cells 1 %; Platelet Estimate Adequate (Adequate); Schistocytes None Seen; Total Cells Counted 100
[2024-03-23 20:14] LABS: NT Pro B Type Natriuretic Pept 12400 pg/mL (19.9-100); Troponin I 0.055 ng/mL (0.000-0.034)
--- NOTE | 2024-03-23 20:17 | PC.NURSE ---
patient states they only urinate a couple times a day due to kidney function and has no urge to urinate at this time. provider notified and stated no martinez on receiving a sample.
[2024-03-23] MEDS: SODIUM POLYSTYRENE SULFONONATE 15 GM/60 ML BTL 30 GM PO (20:45)
[2024-03-23] MEDS: CALCIUM GLUCONATE 1,000 MG/10 ML VIAL 1000 MG IV PUSH (20:46)
[2024-03-23] MEDS: INSULIN HUMAN REGULAR (*BKC) 100 UNITS/ML IV PUSH (20:46)
[2024-03-23] MEDS: SODIUM BICARBONATE 8.4% 50 MEQ/50 ML SYRINGE IV PUSH (20:46)
[2024-03-23] MEDS: FUROSEMIDE INJ 40 MG/4 ML VIAL IV PUSH (20:46)
[2024-03-23 21:00] LABS: Beta-Hydroxybutyrate/Acetoacetate 0.86 mmol/L (0.02-0.27)
[2024-03-23] MEDS: KETOROLAC 15 MG/ML VIAL (*BKC) IV PUSH (21:03)
[2024-03-23 21:32] LABS: Glucose Point of Care 259 mg/dl (65-105)
[2024-03-23 21:36] LABS: Anion Gap 17 mmol/L (4-12); Blood Urea Nitrogen 56 mg/dL (9-20); Carbon Dioxide 24 mmol/L (22-30); Chloride 89 mmol/L (98-107); Estimated CRCL calculation 9 ml/min; Estimated Glomerular Filt Rate 6; Glucose 227 mg/dL (65-110); Potassium 5.6 mmol/L (3.4-5.0); Sodium 130 mmol/L (137-145)
[2024-03-23 21:37] LABS: Lactic Acid Reflex 1.4 mmol/L (0.7-2.0)
--- NOTE | 2024-03-23 21:39 | ECG_ITS ---
Test Date: 2024-03-23 21:46:43 Measurements Intervals [place] Rate: 89 P: 41 WI: 173 QRS: -3 QRSD: 89 T: 67 QT: 369 QTc: 451 Interpretive Statements SINUS RHYTHM POSSIBLE LEFT ATRIAL ENLARGEMENT DELAYED PRECORDIAL R/S TRANSITION BORDERLINE ST-T WAVE ABNORMALITY- HIGH LATERAL LEADS BASELINE ARTIFACT- I, II, III, AVL, AVF, V6 BORDERLINE ECG Compared to ECG 03/23/2024 18:43:05 NO SIGNIFICANT CHANGE Electronically Signed On 03-24-2024 06:03:38 CDT by Bulmaro Hurley D.O.
[2024-03-23 21:51] LABS: Troponin I 0.047 ng/mL (0.000-0.034)
--- OUTSIDE RECORDS SUMMARY | 2024-03-23 22:01 | XMS_ITS | Encounter Summary ---
Author Name Unknown Organization [facility] Address [address] [place] [address] Encounter Details Date Type Department Care Team Description ASSESSMENT No Information TREATMENT PLAN No Information
--- OUTSIDE RECORDS SUMMARY | 2024-03-23 22:01 | XMS_ITS | Encounter Summary ---
Author Name Unknown Organization [facility] Address [address] [place] [address] Encounter Details Date Type Department Care Team Description ASSESSMENT No Information TREATMENT PLAN No Information
--- OUTSIDE RECORDS SUMMARY | 2024-03-23 22:01 | XMS_ITS | Encounter Summary ---
Author Name Unknown Organization [facility] Address [address] [place] [address] Encounter Details Date Type Department Care Team Description ASSESSMENT No Information TREATMENT PLAN No Information
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
--- NOTE | 2024-03-23 22:22 | ADMGEN ---
This patient, Rolando Ashley, was admitted to IMU Room 211-01. Patient/family oriented to hospital policies and general routines including ID bracelet, bed and alarms, visiting hours, pain management, procedures, bathroom and other care routines, personal items, smoking policy, room service/diet, and visiting hours. Information on how to activate the Rapid Response Team has been discussed. Patient/Family are encouraged to report perceived risks to care and to ask questions if they do not understand what they are told or what they should do.
[2024-03-23 23:26] LABS: Hematocrit 32.5 % (42.0-52.0); Mean Corpuscular HGB Conc 33.8 g/dl (32-36); Mean Corpuscular Hemoglobin 29.4 pg (26-34); Mean Corpuscular Volume 86.9 fl (80-100); Mean Platelet Volume 10.8 fl (7.4-10.4); Platelet Count Result 222 k/mm3 (150-375); Red Blood Count 3.74 M/mm3 (4.6-6.20); Red Cell Distribution Width 13.7 % (11.5-14.5); White Blood Count 15.2 K/mm3 (4.5-10.0)
[2024-03-23 23:39] LABS: Alanine Aminotransferase 16 U/L (6-50); Albumin Level 4.2 g/dL (3.5-5.1); Alkaline Phosphatase 74 U/L (38-126); Anion Gap 18 mmol/L (4-12); Aspartate Amino Transferase 24 U/L (17-59); Bilirubin,Total 0.6 mg/dL (0.2-1.3); Blood Urea Nitrogen 56 mg/dL (9-20); Calcium 9.5 mg/dL (8.4-10.2); Carbon Dioxide 23 mmol/L (22-30); Chloride 90 mmol/L (98-107); Estimated CRCL calculation 8 ml/min; Estimated Glomerular Filt Rate 5; Glucose 227 mg/dL (65-110); Potassium 5.1 mmol/L (3.4-5.0); Sodium 131 mmol/L (137-145)
[2024-03-23 23:57] LABS: Hemoglobin A1C 9.3 % (<5.7)
[2024-03-24] VITALS (34 sets, daily range): BP systolic 132–178; BP diastolic 74–105; PULSE 75–113; RESP 16–22; TEMP 36.1–37; O2SAT 90–99
--- NOTE | 2024-03-24 | ECHO_ITS ---
Patient Info Name: Rolando Ashley Age: 63 years : 1960 Gender: Male Ht: 66 in Wt: 244 lbs BSA: 2.32 m2 HR: 84 bpm BP: 151 / 84 mmHg Technical Quality: Good Exam Date: 03/24/2024 8:24 AM Exam Location: Echo Lab Patient Status: Inpatient Admit Date: 03/23/2024 Staff Ordering Physician: Divine Christy MD Checkroom Attendant: Eriberto Sanchez RDCS Attending Provider: Radha Sommers MD Referring Physician: Westley SOLIS; Exam Type: CA echo doppler color flow Study Info Indications - moderate pericardial effusion poss pericarditis Complete two-dimensional, color flow and Doppler transthoracic echocardiogram is performed. Summary 1. Complete two-dimensional, color flow and Doppler transthoracic echocardiogram is performed. 2. Left ventricular chamber dimension is normal. 3. Left ventricular systolic function is preserved, estimated at 50-55%. 4. There is moderate concentric increased left ventricular wall thickness. 5. The left ventricular diastolic function is grade I diastolic dysfunction. 6. E/e' 15 is elevated. 7. Left atrial chamber dimension is moderately enlarged. 8. Right atrial chamber dimension is moderately enlarged. 9. There is mild aortic valve sclerosis. 10. There is mild aortic valve regurgitation. 11. There is moderate mitral valve regurgitation. 12. There is mild to moderate tricuspid valve regurgitation. 13. Mild pulmonary hypertension, estimated pulmonary arterial systolic pressure is 46 mmHg. 14. Dilated inferior vena cava with >50% collapse upon inspiration consistent with elevated right atrial pressure, 10 mmHg. 15. There is small to moderate circumferential pericardial effusion. Left Ventricle E/e' 15 is elevated. Left ventricular chamber dimension is normal. Left ventricular systolic function is preserved, estimated at 50-55%. There is moderate concentric increased left ventricular wall thickness. The left ventricular diastolic function is grade I diastolic dysfunction. Right Ventricle Right ventricular systolic function is normal and with normal TAPSE 2.3 cm. Right ventricular chamber dimension is normal. Left Atria Left atrial chamber dimension is moderately enlarged. Right Atria Right atrial chamber dimension is moderately enlarged. Aortic Valve The aortic valve is trileaflet. There is mild aortic valve sclerosis. There is no aortic valve stenosis. There is mild aortic valve regurgitation. Pulmonic Valve There is no pulmonic regurgitation. Mitral Valve There is no mitral valve stenosis. There is moderate mitral valve regurgitation. Tricuspid Valve There is mild to moderate tricuspid valve regurgitation. Mild pulmonary hypertension, estimated pulmonary arterial systolic pressure is 46 mmHg. Pericardium/Pleural There is small to moderate circumferential pericardial effusion. No cardiac tamponade. Inferior Vena Cava Dilated inferior vena cava with >50% collapse upon inspiration consistent with elevated right atrial pressure, 10 mmHg. Aorta The aortic root size at the sinus of Valsalva is normal. Left Ventricular Outflow Tract Name Value Normal LVOT 2D LVOT Diameter 2.0 cm LVOT Doppler LVOT Peak Gradient 7 mmHg LVOT Mean Gra
[2024-03-24 01:30] LABS: Troponin I 0.056 ng/mL (0.000-0.034)
[2024-03-24 02:46] LABS: Appearance Urine Cloudy (Clear); Bacteria Urine None Seen /hpf; Bilirubin Urine Negative (Negative); Blood Urine 1+ (Negative); Color Urine Yellow (Yellow); Glucose Urine UA 3+ mg/dL (Negative); Ketones Urine Trace mg/dL (Negative); Leukocyte Esterase Ur Negative LEU/UL (Negative); Need Manual Microscopic Reviewed; Nitrate Urine Negative (Negative); Protein Urine 4+ mg/dL (Negative); RBC Urine 0-2 /hpf (0-2); Squamous Epithelial Cell Urine None Seen /hpf (Few); Urobilinogen Urine 0.2 mg/dL (<2.0); pH Urine 6.5 (5.0-9.0)
[2024-03-24 02:51] LABS: Add Urine Microscopic? YES
[2024-03-24 07:02] LABS: Glucose Point of Care 181 mg/dl (65-105)
--- NOTE | 2024-03-24 07:44 | PC.NURSE ---
Dr. Burns updated on patient status.
[2024-03-24] MEDS: hydrALAZINE HCL 25 MG TABLET PO ×4 (08:05→20:39)
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
[2024-03-24 11:11] LABS: Hepatitis B Surface Antigen Negative (Negative)
--- NOTE | 2024-03-24 11:22 | PM.EVENT ---
Event Note Event Note Event Note: Patient is on dialysis and tolerating it well. He will have some fluid removed. Blood pressure is doing okay He was seen at 10:00 a.m.
--- NOTE | 2024-03-24 11:23 | PM.CNNEP ---
Assessment and Plan Assessment and plan (1) End-stage renal disease on hemodialysis: Code(s): N18.6 - End stage renal disease; Z99.2 - Dependence on renal dialysis Status: Acute Assessment and Plan: Rolando has end-stage renal disease. He is due for dialysis today. He may have pericarditis. He at least has a pericardial effusion according to the bedside echo. The formal echo is pending. He is not under dialyzed: KT/V has been good by his report and He has not been skipping treatments. So I do not think this is under dialysis causing the pericardial effusion. Nevertheless there is a syndrome of dialysis related pericardial effusion. Sometimes is viral but there was no symptoms of this. It could be inflammatory so will get an CHRIS sed rate and complements. It could be carcinoma to so I suppose. Possibly a CT scan might help determine this. He does not have any symptoms or history of cancer though. At this point will dialyze today tomorrow in for Thursday before discharge. (2) Chest pain: Code(s): R07.9 - Chest pain, unspecified Status: Acute Assessment and Plan: This could be pericarditis. Cardiology consult is pending. Echo is pending. (3) Hypertension: Code(s): I10 - Essential (primary) hypertension Status: Acute Assessment and Plan: Blood pressure was very high on admission, possibly due to anxiety. It has settled down. We are going to renew his outpatient blood pressure pills and also take some fluid off in dialysis. (4) JARAD on CPAP: Code(s): G47.33 - Obstructive sleep apnea (adult) (pediatric); Z99.89 - Dependence on other enabling machines and devices Status: Acute (5) Pure hypercholesterolemia: Code(s): E78.00 - Pure hypercholesterolemia, unspecified Status: Acute Assessment and Plan: He is on atorvastatin (6) Type 2 diabetes mellitus with diabetic neuropathy: Code(s): E11.40 - Type 2 diabetes mellitus with diabetic neuropathy, unspecified Status: Acute Assessment and Plan: He is on Accu-Cheks and sliding-scale insulin per hospitalists. History of Present Illness Reason for Consult Consult date: 03/24/24 Chief Complaint Chief complaint: Pericardial Effusion/NSTEMI/Elev BNP/ HyperK History of Present Illness Narrative: Farshad is a very pleasant 63-year-old gentleman who has multiple medical problems including end-stage renal disease on dialysis 3 times a week for about the last year, hypertension, diabetes, GERD, BPH, sciatica, neuropathy, hyperlipidemia. The patient has been on dialysis for about the last year. He started out trying peritoneal dialysis but had too much fibrin and so immediately switched to hemodialysis before training was even over. Since then the patient has done well on dialysis. He always goes to his treatments and stays the whole time. He has not skipped any treatments lately. He says that his Kt/V has been good. Patient says that he developed some chest pain. It was sharp and central in the chest. It did not radiate. It worsened when he exhales. It also substantially worsened when he laid down flat. This went on for couple of hours in nothing he did would make it better. He did try some cold water and that helped a tiny bit but not much. He called 911 and came over to the ER. In the ER he was evaluated. Chest x-ray did not show any infiltrates bedside echo in the ER showed an effusion. Potassium was high and he was given meds for that. He was admitted to telemetry. He says that he has not had any viral issues lately. Review of Systems Constitutional: Constitutional: Reports no additional constitutional complaints Eyes: Eyes: Reports no additional eye complaints ENT: Reports system reviewed and no additional complaints, except as documented Cardiovascular: Cardiovascular: Reports no additional cardiovascular complaints Respiratory: Respiratory: Reports no additional respi
[2024-03-24 11:33] LABS: Hepatitis B Surface Anti Res Positive
[2024-03-24] MEDS: INSULIN ASPART (*BKC) 100 UNITS/ML SUB-Q ×2 (12:55→17:17)
[2024-03-24 13:06] LABS: Glucose Point of Care 206 mg/dl (65-105)
--- NOTE | 2024-03-24 15:50 | PM.IMPN ---
Progress Note: A&P Assessment and Plan (1) Hyperglycemia due to diabetes mellitus: Code(s): E11.65 - Type 2 diabetes mellitus with hyperglycemia Status: Acute (2) End-stage renal disease on hemodialysis: Code(s): N18.6 - End stage renal disease; Z99.2 - Dependence on renal dialysis Status: Acute (3) Hyperkalemia: Code(s): E87.5 - Hyperkalemia Status: Acute (4) Pericardial effusion: Code(s): I31.39 - Other pericardial effusion (noninflammatory) Status: Acute (5) Hypertension: Code(s): I10 - Essential (primary) hypertension Status: Acute (6) Type 2 diabetes mellitus with diabetic neuropathy: Code(s): E11.40 - Type 2 diabetes mellitus with diabetic neuropathy, unspecified Status: Acute Plan CKD /pericardial effusion Cardiology consulted serum creatinine 9.8 nephrology consulted pt to have dialysis today Possible cause of pleural effusion could be renal failure will wait for the echo HTN uncontrolled Optimize BP meds lisinopril and hydralazine and carvedilol, amlodipine 2D echo shows - Left Ventricle E/e' 15 is elevated. Left ventricular chamber dimension is normal. Left ventricular systolic function is preserved, estimated at 50-55%. There is moderate concentric increased left ventricular wall thickness. The left ventricular diastolic function is grade I diastolic dysfunction. DM/metabolic acidosis accuchecks 1800 ADA HB A1c levels pending uti ua is positive wcc is high start iv rocephin Urinary bladder wall thickening will need Urology for a cysto to rule out any malignancy. 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 Currently on dialysis. His chest x-ray shows signs of pleural pericardial effusion with no compromise 03/24 Pt having dialysis today history of esrd dm and stable pericardial effusion pt seen by cardiology and nephrology today Review of Systems Review of Systems: pt feels better Exam Narrative: GENERAL: Well appearing, no acute distress. HEAD: Normocephalic, atraumatic. NECK: Supple. No adenopathy, no masses. RESPIRATORY: respirations nonlabored. , no rales, wheezing. CARDIOVASCULAR: Regular rate and rhythm without murmurs, . Peripheral pulses 2+ and equal bilaterally. Plus two pitting edema ABDOMINAL: Soft, nontender, nondistended, no hepatosplenomegaly. Normoactive BS. MUSCULOSKELETAL: no Epigastric and no hypochondrial tenderness SKIN: Warm, dry, NEURO: A&O X3. Moves all extremities Objective Data Vital Signs Vital Signs: Vital Signs - 24 hr 03/23/24 18:38 03/23/24 18:46 03/23/24 19:24 Temperature 36.8 C Pulse Rate 98 99 Respiratory Rate 23 H 21 H Blood Pressure 208/113 H Pulse Oximetry 95 95 95 Oxygen Delivery Room Air Room Air Oxygen Flow Rate 03/23/24 19:24 03/23/24 19:33 03/23/24 19:30 Temperature Pulse Rate 99 98 Respiratory Rate 24 H Blood Pressure 179/95 H Pulse Oximetry 94 96 Oxygen Delivery Nasal Cannula Oxygen Flow Rate 2 03/23/24 20:00 03/23/24 21:00 03/23/24 21:10 Temperature Pulse Rate 94 91 Respiratory Rate 20 27 H Blood Pressure 181/100 H 164/95 H 165/87 H Pulse Oximetry 93 94 Oxygen Delivery Oxygen Flow Rate 03/23/24 21:30 03/23/24 21:40 03/23/24 22:10 Temperature 36.3 C L Pulse Rate 92 92 94 Respiratory Rate 29 H 28 H 18 Blood Pressure 171/94 H 168/90 H 153/76 H Pulse Oximetry 96 96 92 Oxygen Delivery Oxygen Flow Rate 03/24/24 00:00 03/24/24 00:00 03/24/24 00:00 Temperature 36.2 C L Pulse Rate 91 93 Respiratory Rate 22 H Blood Pressure 140/74 Pulse Oximetry 95 95 Oxygen Delivery Nasal Cannula Oxygen Flow Rate 2 03/24/24 02:00 03/24/24 03:49 07/
[2024-03-24 16:05] LABS: Glucose Point of Care 256 mg/dl (65-105)
[2024-03-24 19:57] LABS: Glucose Point of Care 333 mg/dl (65-105)
[2024-03-24] MEDS: rOPINIRole HCL 1 MG TABLET PO (20:39)
[2024-03-24] MEDS: carvediloL 12.5 MG TABLET PO (20:39)
[2024-03-24 22:15] LABS: Hematocrit 31.9 % (42.0-52.0); Hemoglobin 10.5 g/dL (14.0-18.0); Mean Corpuscular HGB Conc 32.9 g/dl (32-36); Mean Corpuscular Hemoglobin 29.5 pg (26-34); Mean Corpuscular Volume 89.6 fl (80-100); Platelet Count Result 195 k/mm3 (150-375); Red Blood Count 3.56 M/mm3 (4.6-6.20); Red Cell Distribution Width 13.6 % (11.5-14.5); White Blood Count 14.4 K/mm3 (4.5-10.0)
[2024-03-24 22:40] LABS: Alanine Aminotransferase 14 U/L (6-50); Albumin Level 4.2 g/dL (3.5-5.1); Alkaline Phosphatase 65 U/L (38-126); Anion Gap 14 mmol/L (4-12); Aspartate Amino Transferase 19 U/L (17-59); Bilirubin,Total 0.4 mg/dL (0.2-1.3); Blood Urea Nitrogen 42 mg/dL (9-20); Carbon Dioxide 29 mmol/L (22-30); Chloride 89 mmol/L (98-107); Estimated CRCL calculation 10 ml/min; Estimated Glomerular Filt Rate 7; Glucose 329 mg/dL (65-110); Potassium 4.4 mmol/L (3.4-5.0); Sodium 132 mmol/L (137-145)
[2024-03-25] VITALS (37 sets, daily range): BP systolic 106–183; BP diastolic 30–98; PULSE 77–94; RESP 16–24; TEMP 36.1–37.1; O2SAT 88–96; BMI 38.5
[2024-03-25 05:06] LABS: Hematocrit 30.8 % (42.0-52.0); Hemoglobin 9.9 g/dL (14.0-18.0); Mean Corpuscular HGB Conc 32.1 g/dl (32-36); Mean Corpuscular Hemoglobin 29.1 pg (26-34); Mean Corpuscular Volume 90.6 fl (80-100); Mean Platelet Volume 11.7 fl (7.4-10.4); Platelet Count Result 202 k/mm3 (150-375); Red Cell Distribution Width 13.8 % (11.5-14.5); White Blood Count 13.5 K/mm3 (4.5-10.0)
[2024-03-25 05:11] LABS: Alanine Aminotransferase 12 U/L (6-50); Albumin Level 3.9 g/dL (3.5-5.1); Alkaline Phosphatase 65 U/L (38-126); Anion Gap 15 mmol/L (4-12); Aspartate Amino Transferase 11 U/L (17-59); Bilirubin,Total 0.4 mg/dL (0.2-1.3); Blood Urea Nitrogen 45 mg/dL (9-20); Carbon Dioxide 29 mmol/L (22-30); Chloride 88 mmol/L (98-107); Estimated CRCL calculation 9 ml/min; Estimated Glomerular Filt Rate 6; Glucose 299 mg/dL (65-110); Phosphorus 7.4 mg/dL (2.5-4.5); Potassium 4.5 mmol/L (3.4-5.0); Sodium 132 mmol/L (137-145)
[2024-03-25 06:57] LABS: Glucose Point of Care 265 mg/dl (65-105)
--- NOTE | 2024-03-25 07:42 | PM.PNCARD ---
Progress Note: A&P Assessment and Plan (1) Chest pain: Code(s): R07.9 - Chest pain, unspecified Status: Acute Assessment and Plan: Resolved. Probably musculoskeletal. EKG unremarkable. Troponin only slightly elevated and less than in prior admissions. Probably due to CKD. (2) Pericardial effusion: Code(s): I31.39 - Other pericardial effusion (noninflammatory) Status: Acute Assessment and Plan: Stable. Probably related to being on dialysis. 03/25/24 Echo: EF 50-55%, mod LVH, grade I diastolic dysfunction (E/e' 15), mod biatrial enlargement, mild AI, mod MR, mild-mod TR, RVSP 46 mmHg, small to moderate circumferential pericardial effusion. No further cardiac workup is needed. Will sign off. Please call with any questions. (3) Hypertension: Code(s): I10 - Essential (primary) hypertension Status: Acute Assessment and Plan: Stable. (4) Pure hypercholesterolemia: Code(s): E78.00 - Pure hypercholesterolemia, unspecified Status: Acute Assessment and Plan: On Atorvastatin. (5) Diastolic dysfunction: Code(s): I51.89 - Other ill-defined heart diseases Status: Acute Assessment and Plan: HD regulates fluid levels. (6) End-stage renal disease on hemodialysis: Code(s): N18.6 - End stage renal disease; Z99.2 - Dependence on renal dialysis Status: Acute Subjective Date/time seen: 03/25/24 07:42 Interval history: Denies chest pain or sob. Exam Const: General: cooperative, healthy appearing and comfortable Orientation/consciousness: oriented to person, oriented to place and oriented to time Resp: Auscultation: clear to auscultation bilaterally, no crackles, no rales, no rhonchi and no wheezes Cardio: Rate: regular rate Rhythm: regular rhythm Heart sounds: no murmurs Peripheral pulses: dorsalis pedis present Neuro: General: oriented to person, oriented to place and oriented to time Extrem: Right lower extremity: no edema Left lower extremity: no edema Objective Data Vital Signs Vital Signs: Vital Signs - 24 hr 03/24/24 07:56 03/24/24 07:55 03/24/24 09:14 Temperature Pulse Rate 91 Respiratory Rate Blood Pressure 172/99 H Pulse Oximetry 98 92 Oxygen Delivery Nasal Cannula Nasal Cannula Oxygen Flow Rate 1 1 03/24/24 09:30 03/24/24 09:05 03/24/24 09:05 Temperature 97.7 F Pulse Rate 88 92 Respiratory Rate 18 Blood Pressure 133/90 161/82 H Pulse Oximetry 98 Oxygen Delivery Oxygen Flow Rate 2 03/24/24 09:45 03/24/24 10:00 03/24/24 10:15 Temperature Pulse Rate 91 92 88 Respiratory Rate Blood Pressure 159/92 H 178/102 H 178/98 H Pulse Oximetry Oxygen Delivery Oxygen Flow Rate 03/24/24 10:30 03/24/24 11:00 03/24/24 10:45 Temperature Pulse Rate 96 93 91 Respiratory Rate Blood Pressure 178/100 H 159/105 H 153/86 H Pulse Oximetry Oxygen Delivery Oxygen Flow Rate 03/24/24 11:15 03/24/24 11:30 03/24/24 11:45 Temperature Pulse Rate 95 93 95 Respiratory Rate Blood Pressure 136/86 157/90 H 156/93 H Pulse Oximetry Oxygen Delivery Oxygen Flow Rate 03/24/24 12:00 03/24/24 12:25 03/24/24 12:17 Temperature 97.0 F L Pulse Rate 94 94 92 Respiratory Rate 16 Blood Pressure 134/83 141/85 H 132/77 Pulse Oximetry 98 Oxygen Delivery Oxygen Flow Rate 03/24/24 08:00 03/24/24 10:00 03/24/24 12:48 Temperature 97.5 F L Pulse Rate 88 91 95 Respiratory Rate 22 H Blood Pressure 158/96 H Pulse Oximetry 99 Oxygen Delivery Oxygen Flow Rate 03/24/24 12:55 03/24/24 12:00 03/24/24 14:00 Temperature Pulse Rate 93 95 Respiratory Rate Blood Pressure Pulse Oximetry 98 Oxygen Delivery Nasal Cannula Oxygen Flow Rate 1 03/24/24 15:35 03/24/24 16:00 03/24/24 18:00 Temperature 97.2 F L Pulse Rate 98 98 108 H Respiratory Rate 18 Blood Pressure 168/85 H Pulse Oximetry 92
[2024-03-25] MEDS: INSULIN ASPART (*BKC) 100 UNITS/ML SUB-Q ×6 (08:01→21:42)
--- NOTE | 2024-03-25 08:15 | PC.NURSE ---
Transported to dialysis.
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
[2024-03-25] MEDS: hydrALAZINE HCL 25 MG TABLET PO ×2 (10:20→21:40)
[2024-03-25] MEDS: amLODIPine BESYLATE 10 MG TABLET PO (10:20)
--- NOTE | 2024-03-25 10:53 | PM.PNNEP ---
Progress Note: A&P Assessment and Plan (1) End-stage renal disease on hemodialysis: Code(s): N18.6 - End stage renal disease; Z99.2 - Dependence on renal dialysis Status: Acute Assessment and Plan: Rolando has end-stage renal disease. He is due for dialysis today. He may have pericarditis. It is hard to say since he has an effusion and so no rub. Certainly the chest pain is better whether it is musculoskeletal or pericardial. Echo does show a circumferential effusion. Effusion is not a normal part of dialysis but sometimes increased dialysis will help this. Will check serology as well. At this point will dialyze today and Thursday before discharge. (2) Chest pain: Code(s): R07.9 - Chest pain, unspecified Status: Acute Assessment and Plan: This could be pericarditis vs musculoskeletal. as noted by Dr Hurley, I agree that his elevated trops could be from CKD (3) Hypertension: Code(s): I10 - Essential (primary) hypertension Status: Acute Assessment and Plan: Blood pressure is improved. (4) JARAD on CPAP: Code(s): G47.33 - Obstructive sleep apnea (adult) (pediatric); Z99.89 - Dependence on other enabling machines and devices Status: Acute (5) Pure hypercholesterolemia: Code(s): E78.00 - Pure hypercholesterolemia, unspecified Status: Acute Assessment and Plan: He is on atorvastatin (6) Type 2 diabetes mellitus with diabetic neuropathy: Code(s): E11.40 - Type 2 diabetes mellitus with diabetic neuropathy, unspecified Status: Acute Assessment and Plan: He is on Accu-Cheks and sliding-scale insulin per hospitalists. Subjective Date/time seen: 03/25/24 10:53 Interval history: Patient is feeling okay. Chest pain is better He is on dialysis and tolerating well. Blood pressure is doing pretty well. He was seen at 10:00 a.m. Review of Systems Cardiovascular: Cardiovascular: Reports no additional cardiovascular complaints Respiratory: Respiratory: Reports no additional respiratory complaints Gastrointestinal: Gastrointestinal: Reports no additional gastrointestinal complaints Genitourinary: Genitourinary: Reports no additional male genitourinary complaints Exam Narrative: WDWN in NAD skin no rash head ncat lungs clear cor reg no rub abd BS+ nontender and soft ext no edema. Objective Data Vital Signs Vital Signs: Vital Signs - 24 hr 03/24/24 11:00 03/24/24 11:15 03/24/24 11:30 Temperature Pulse Rate 93 95 93 Respiratory Rate Blood Pressure 159/105 H 136/86 157/90 H Pulse Oximetry Oxygen Delivery Oxygen Flow Rate 03/24/24 11:45 03/24/24 12:00 03/24/24 12:25 Temperature 97.0 F L Pulse Rate 95 94 94 Respiratory Rate 16 Blood Pressure 156/93 H 134/83 141/85 H Pulse Oximetry 98 Oxygen Delivery Oxygen Flow Rate 03/24/24 12:17 03/24/24 12:48 03/24/24 12:55 Temperature 97.5 F L Pulse Rate 92 95 Respiratory Rate 22 H Blood Pressure 132/77 158/96 H Pulse Oximetry 99 98 Oxygen Delivery Nasal Cannula Oxygen Flow Rate 1 03/24/24 12:00 03/24/24 14:00 03/24/24 15:35 Temperature 97.2 F L Pulse Rate 93 95 98 Respiratory Rate 18 Blood Pressure 168/85 H Pulse Oximetry 92 Oxygen Delivery Oxygen Flow Rate 03/24/24 16:00 03/24/24 18:00 03/24/24 16:00 Temperature Pulse Rate 98 108 H Respiratory Rate Blood Pressure Pulse Oximetry 99 Oxygen Delivery Room Air Oxygen Flow Rate 03/24/24 19:40 03/24/24 20:39 03/24/24 20:00 Temperature 98.6 F Pulse Rate 103 H 108 H Respiratory Rate 20 Blood Pressure 151/86 H Pulse Oximetry 90 99 Oxygen Delivery Room Air Oxygen Flow Rate 03/25/24 00:00 03/25/24 00:00 03/24/24 20:00 Temperature 98.1 F Pulse Rate 87 113 H Respiratory Rate 18 Blood Pressure 121/56 L Pulse Oximetry 90 90 Oxygen Delivery Room Air Oxygen Flow Rate
--- NOTE | 2024-03-25 12:26 | PC.NURSE ---
Returned to floor from dialysis.
[2024-03-25] MEDS: ACETAMINOPHEN 325 MG TABLET 650 MG PO (12:29)
[2024-03-25 12:30] LABS: Complement C3 106 mg/dL (88-165); Erythrocyte Sedimentation Rate > 140 mm/hr (0-20)
[2024-03-25] MEDS: carvediloL 12.5 MG TABLET PO ×2 (12:31→21:40)
[2024-03-25] MEDS: AMITRIPTYLINE HCL 25 MG TABLET 50 MG PO (12:31)
[2024-03-25] MEDS: ATORVASTATIN 40 MG TABLET PO (12:31)
--- NOTE | 2024-03-25 14:29 | PM.IMPN ---
Progress Note: A&P Assessment and Plan (1) Hyperglycemia due to diabetes mellitus: Code(s): E11.65 - Type 2 diabetes mellitus with hyperglycemia Status: Acute (2) End-stage renal disease on hemodialysis: Code(s): N18.6 - End stage renal disease; Z99.2 - Dependence on renal dialysis Status: Acute (3) Hyperkalemia: Code(s): E87.5 - Hyperkalemia Status: Acute (4) Pericardial effusion: Code(s): I31.39 - Other pericardial effusion (noninflammatory) Status: Acute (5) Hypertension: Code(s): I10 - Essential (primary) hypertension Status: Acute (6) Type 2 diabetes mellitus with diabetic neuropathy: Code(s): E11.40 - Type 2 diabetes mellitus with diabetic neuropathy, unspecified Status: Acute Plan CKD /pericardial effusion Cardiology consulted serum creatinine 9 now improved from 10 nephrology consulted pt to have dialysis today Possible cause of pleural effusion could be renal failure will wait for the echo pt having dialysis again today and also scheduled for thursday pt denies missing dialysis sessions nephrology rounding continue dialysis in hospital cardiology rounding continue to watch HTN uncontrolled Optimize BP meds lisinopril and hydralazine and carvedilol, amlodipine 2D echo shows - Left Ventricle E/e' 15 is elevated. Left ventricular chamber dimension is normal. Left ventricular systolic function is preserved, estimated at 50-55%. There is moderate concentric increased left ventricular wall thickness. The left ventricular diastolic function is grade I diastolic dysfunction. DM/metabolic acidosis accuchecks 1800 ADA uti ua is positive wcc is high start iv rocephin Urinary bladder wall thickening will need Urology for a cysto to rule out any malignancy. 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 Currently on dialysis. His chest x-ray shows signs of pleural pericardial effusion with no compromise 03/24 Pt having dialysis today history of esrd dm and stable pericardial effusion pt seen by cardiology and nephrology today 03/25 pt having dialysis today continue to watch kidney function, creat is 9 today pt denies missing any dialysis Review of Systems Review of Systems: much the same Exam Narrative: GENERAL: Well appearing, no acute distress. HEAD: Normocephalic, atraumatic. NECK: Supple. No adenopathy, no masses. RESPIRATORY: respirations nonlabored. , no rales, wheezing. CARDIOVASCULAR: Regular rate and rhythm without murmurs, . Peripheral pulses 2+ and equal bilaterally. Plus two pitting edema ABDOMINAL: Soft, nontender, nondistended, no hepatosplenomegaly. Normoactive BS. MUSCULOSKELETAL: no Epigastric and no hypochondrial tenderness SKIN: Warm, dry, NEURO: A&O X3. Moves all extremities Objective Data Vital Signs Vital Signs: Vital Signs - 24 hr 03/24/24 15:35 03/24/24 16:00 03/24/24 18:00 Temperature 36.2 C L Pulse Rate 98 98 108 H Respiratory Rate 18 Blood Pressure 168/85 H Pulse Oximetry 92 Oxygen Delivery 03/24/24 16:00 03/24/24 19:40 03/24/24 20:39 Temperature 37.0 C Pulse Rate 103 H 108 H Respiratory Rate 20 Blood Pressure 151/86 H Pulse Oximetry 99 90 Oxygen Delivery Room Air 03/24/24 20:00 03/25/24 00:00 03/25/24 00:00 Temperature 36.7 C Pulse Rate 87 Respiratory Rate 18 Blood Pressure 121/56 L Pulse Oximetry 99 90 90 Oxygen Delivery Room Air Room Air 03/24/24 20:00 03/25/24 00:00 03/24/24 22:00 Temperature Pulse Rate 113 H 84 97 Respiratory Rate Blood Pressure Pulse Oximetry Oxygen Delivery 03/25/24 02:00 03/25/24 04:00 03/25/24 04:00 Temperature 36.1 C L Pulse Rate 88 81 82
[2024-03-25 16:26] LABS: Glucose Point of Care 136 mg/dl (65-105)
--- NOTE | 2024-03-25 17:44 | PC.NURSE ---
Detailed message left with Dr. Del Angel notifying her that 1300 and current dose of Hydralazine were held. Current BP 106/65.
[2024-03-25 19:54] LABS: Glucose Point of Care 310 mg/dl (65-105)
[2024-03-25 20:49] LABS: Glucose Point of Care 239 mg/dl (65-105)
[2024-03-25] MEDS: rOPINIRole HCL 1 MG TABLET PO (21:40)
[2024-03-26] VITALS (27 sets, daily range): BP systolic 130–161; BP diastolic 68–93; PULSE 74–85; RESP 16–24; TEMP 36.7–37; O2SAT 90–98
[2024-03-26 04:48] LABS: Hemoglobin 10.4 g/dL (14.0-18.0); Mean Corpuscular HGB Conc 32.5 g/dl (32-36); Mean Corpuscular Hemoglobin 29.2 pg (26-34); Mean Corpuscular Volume 89.9 fl (80-100); Mean Platelet Volume 10.8 fl (7.4-10.4); Platelet Count Result 222 k/mm3 (150-375); Red Blood Count 3.56 M/mm3 (4.6-6.20); Red Cell Distribution Width 13.6 % (11.5-14.5); White Blood Count 9.3 K/mm3 (4.5-10.0)
[2024-03-26 05:01] LABS: Anion Gap 14 mmol/L (4-12); Blood Urea Nitrogen 38 mg/dL (9-20); Calcium 8.9 mg/dL (8.4-10.2); Carbon Dioxide 29 mmol/L (22-30); Chloride 90 mmol/L (98-107); Estimated CRCL calculation 11 ml/min; Estimated Glomerular Filt Rate 8; Glucose 186 mg/dL (65-110); Phosphorus 6.9 mg/dL (2.5-4.5); Potassium 3.8 mmol/L (3.4-5.0); Sodium 133 mmol/L (137-145)
[2024-03-26 06:42] LABS: Glucose Point of Care 226 mg/dl (65-105)
[2024-03-26] MEDS: INSULIN ASPART (*BKC) 100 UNITS/ML SUB-Q ×3 (07:28→12:12)
--- NOTE | 2024-03-26 08:00 | PC.NURSE ---
To Dialysis per bed.
--- NOTE | 2024-03-26 11:08 | PM.PNNEP ---
Progress Note: A&P Assessment and Plan (1) End-stage renal disease on hemodialysis: Code(s): N18.6 - End stage renal disease; Z99.2 - Dependence on renal dialysis Status: Acute Assessment and Plan: Rolando has end-stage renal disease. He is due for dialysis today. He may have pericarditis. It is hard to say since he has an effusion and so no rub. chest pain is better. Okay for discharge from the renal standpoint (2) Chest pain: Code(s): R07.9 - Chest pain, unspecified Status: Acute Assessment and Plan: This could be pericarditis vs musculoskeletal. as noted by Dr Hurley, I agree that his elevated trops could be from CKD If pericarditis in a dialysis patient, this could be due to under dialysis, viral syndrome, or inflammation. He is not under dialyzed. He does not seem to have had a viral syndrome. His sed rate is very high. I wonder if this could be something to do with this hydralazine. I will check an anti histone and stop the hydralazine. (3) Hypertension: Code(s): I10 - Essential (primary) hypertension Status: Acute Assessment and Plan: Blood pressure is improved. Since were stopping hydralazine I will change his amlodipine to nifedipine. (4) JARAD on CPAP: Code(s): G47.33 - Obstructive sleep apnea (adult) (pediatric); Z99.89 - Dependence on other enabling machines and devices Status: Acute (5) Pure hypercholesterolemia: Code(s): E78.00 - Pure hypercholesterolemia, unspecified Status: Acute Assessment and Plan: He is on atorvastatin (6) Type 2 diabetes mellitus with diabetic neuropathy: Code(s): E11.40 - Type 2 diabetes mellitus with diabetic neuropathy, unspecified Status: Acute Assessment and Plan: He is on Accu-Cheks and sliding-scale insulin per hospitalists. Subjective Date/time seen: 03/26/24 11:08 Interval history: Pt is on HD karla it wel. this is day 3 in a row. BP is good. lying flat in bed without chest pain. Blood pressure is doing well. Seen at 10:40 a.m. Exam Narrative: WDWN in NAD skin no rash or sq nodules head ncat lungs clear cor reg no rub or gallop abd BS+ nontender and soft ext no edema. Objective Data Vital Signs Vital Signs: Vital Signs - 24 hr 03/25/24 11:15 03/25/24 11:30 03/25/24 11:45 Temperature Pulse Rate 86 83 86 Respiratory Rate Blood Pressure 111/71 115/69 132/75 Pulse Oximetry Oxygen Delivery Oxygen Flow Rate Fraction of Inspired Oxygen 03/25/24 11:55 03/25/24 12:11 03/25/24 12:26 Temperature 98.6 F 98.5 F Pulse Rate 87 86 87 Respiratory Rate 20 16 Blood Pressure 115/67 119/59 L 150/75 H Pulse Oximetry 89 L 94 Oxygen Delivery Oxygen Flow Rate Fraction of Inspired Oxygen 03/25/24 12:31 03/25/24 12:42 03/25/24 13:58 Temperature Pulse Rate 87 Respiratory Rate Blood Pressure 125/46 L Pulse Oximetry 94 Oxygen Delivery Room Air Oxygen Flow Rate Fraction of Inspired Oxygen 03/25/24 14:00 03/25/24 16:08 03/25/24 16:00 Temperature 98.1 F Pulse Rate 79 80 Respiratory Rate 16 Blood Pressure 106/65 Pulse Oximetry 92 92 Oxygen Delivery Room Air Oxygen Flow Rate Fraction of Inspired Oxygen 03/25/24 16:00 03/25/24 18:00 03/25/24 20:04 Temperature 98.1 F Pulse Rate 77 81 86 Respiratory Rate 22 H Blood Pressure 144/59 H Pulse Oximetry 94 Oxygen Delivery Oxygen Flow Rate Fraction of Inspired Oxygen 03/25/24 21:40 03/25/24 20:00 03/25/24 20:00 Temperature Pulse Rate 87 86 85 Respiratory Rate 22 H Blood Pressure Pulse Oximetry 94 Oxygen Delivery Room Air Oxygen Flow Rate Fraction of Inspired Oxygen 03/25/24 22:00 03/25/24 23:26 03/26/24 00:00 Temperature 98.1 F Pulse Rate 85 80 80 Respiratory Rate 22 H 22 H Blood Pressure 136/62 Pulse Oximetry 96 96 Oxygen Delivery Room Air Oxy
--- NOTE | 2024-03-26 12:00 | PC.NURSE ---
returned to room 211, from dialysis.
[2024-03-26] MEDS: NIFEdipine 30 MG TAB.ER.24 60 MG PO (12:12)
[2024-03-26] MEDS: carvediloL 12.5 MG TABLET PO (12:12)
[2024-03-26] MEDS: ATORVASTATIN 40 MG TABLET PO (12:13)
[2024-03-26] MEDS: AMITRIPTYLINE HCL 25 MG TABLET 50 MG PO (12:13)
[2024-03-26 12:15] LABS: Glucose Point of Care 127 mg/dl (65-105)
--- NOTE | 2024-03-29 16:08 | PM.DS ---
DS: Admitting Diagnosis Discharge Date 03/26/24 Admitting Diagnosis Shortness of breath DS: Discharge Diagnosis Discharge Diagnosis (1) BPH (benign prostatic hyperplasia): Code(s): N40.0 - Benign prostatic hyperplasia without lower urinary tract symptoms Status: Acute (2) End-stage renal disease on hemodialysis: Code(s): N18.6 - End stage renal disease; Z99.2 - Dependence on renal dialysis Status: Acute (3) Chest pain: Code(s): R07.9 - Chest pain, unspecified Status: Acute (4) Pericardial effusion: Code(s): I31.39 - Other pericardial effusion (noninflammatory) Status: Acute (5) Diastolic dysfunction: Code(s): I51.89 - Other ill-defined heart diseases Status: Acute DS: Summary Hospital Course Hospital Course: 63-year-old male with multiple medical problems who is on dialysis for about a year. He presents with chest pain it was sharp and central down out Radian worsened when he exhales. Is also worsened when he laid down flat. It went on for many hours he tried to drink cold water and it only helped a tiny bit. He called EMS and presented to [place] [facility]. Subsequently admitted on 03/23/2024. Patient was dialyzed. His chest pain was better. The patient's sed rate was very high so hydralazine was stopped. In place of that amlodipine and nifedipine were started and his blood pressure was good. He had elevated troponins which were only slightly elevated it was probably due to CKD. Patient was seen by both Nephrology and Cardiology. Surface echocardiogram on 03/25/2024 demonstrated a small to moderate circumferential pericardial effusion along with grade 1 diastolic dysfunction. No further workup needed. On 03/26/2024 the patient is stable for discharge to home. He is asking to go home and feels he is back to his baseline. Patient has been advised to follow up very closely with Nephrology, Cardiology, PCP for his multiple medical conditions to which he agrees. Adverse effects, risk and benefits of medication discussed to which the patient understands. The patient was started antibiotics for a very slightly abnormal urinalysis, equivocal, almost normal, however his urine culture was negative therefore they were stopped. Status at Discharge Overall status at discharge: patient is back to baseline Time Spent with Patient Time attestation: Total time spent providing and/or coordinating discharge services: Time spent: Greater than 30 minutes Exam Const: General: comfortable and no acute distress Eyes: Pupils: Equal, round and reactive pupils present Resp: Effort & Inspection: normal respiratory effort Auscultation: clear to auscultation bilaterally Cardio: Rate: regular rate Rhythm: regular rhythm Extrem: General: no edema Discharge Plan Discharge Attending physician on discharge: Radha Sommers Consulting providers: Matty Burns; Bulmaro Hurley; Yin Renteria; Lenoardo Thomas; Mena Del Angel; Rafael Ramirez Discharging Clinician: Radha Sommers Patient Disposition: Home, Self-Care Activity: december shower Diet: heart healthy, diabetic and renal Discharge Instructions: Continue dialysis, 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 Patient Instructions: Antibiotic Form, Chest Pain (GEN) Stand Alone Forms: General Discharge Information Follow-up/Referrals: Yo Marin MD [Primary Care Provider] - Call for Appointment Yin Renteria PA-C [Physician Brand Advocate] - Call for Appointment Discharge Medications: New nifedipine [Procardia XL] 30 mg Tablet Extended Release 24hr 60 mg PO QAM Qty: 60 0RF Continued atorvastatin 40 mg tablet 40 mg PO DAILY amitriptyline 50 mg tablet 50 mg PO DAILY (DME) Omnipod Dash Pods (Gen 4) Cartridge See Rx Instructions .ROUTE .MEDSUPPLY Qty: 5 Rx Instructions: As directed carvedilol 12.5 mg tablet 12.5 mg PO Q12H Qty: 180 2RF Rx Instructions:
[2024-03-30 14:23] LABS: Complement Total CH50 >60 U/mL (31-60)
[2024-03-30 16:34] LABS: Histone Antibody <1.0 U
== END 2024-03-26 14:51 | disposition home or self-care (01) | DRG 314 ==
LOC: ANHED 19:57 → ANHIMU 21:59
PROVIDERS: Emergency Medicine; Family Medicine; Internal Medicine; Internal Medicine Nephrology; Admitting Provider General Practice; Emergency Provider Student in an Organized Health Care Education/Training Program; PCP Emergency Medicine; Visit Provider General Practice
DX: I31.39 Other pericardial effusion (noninflammatory) (principal); N18.6 End stage renal disease; I13.2 Hypertensive heart and chronic kidney disease with heart failure and with stage 5 chronic kidney disease, or end stage renal disease; E11.65 Type 2 diabetes mellitus with hyperglycemia; E87.5 Hyperkalemia; I50.9 Heart failure, unspecified; E11.22 Type 2 diabetes mellitus with diabetic chronic kidney disease; E11.42 Type 2 diabetes mellitus with diabetic polyneuropathy; N40.0 Benign prostatic hyperplasia without lower urinary tract symptoms; E78.00 Pure hypercholesterolemia, unspecified; N32.89 Other specified disorders of bladder; G47.33 Obstructive sleep apnea (adult) (pediatric); Z99.2 Dependence on renal dialysis; E66.3 Overweight; Z68.38 Body mass index [BMI] 38.0-38.9, adult; Z20.822 Contact with and (suspected) exposure to COVID-19
CPT/HCPCS: 36415; 71046; 71275; 74174; 80048; 80053; 80069; 81001; 82010; 82550; 82948; 83036; 83605; 83690; 83735; 83880; 84484; 85025; 85027; 85610; 85652; 85730; 86038; 86039; 86160; 86162; 86364; 86706; 87086; 87340; 87637; 93005; 93306; 96374; 96375; 99285; A9270; G0257; J0360; J0612; J0696; J1815; J1885; J1940; J2270; J7030; Q9967

== ENCOUNTER 2024-04-05 08:12 | Inpatient (IN) | payer MEDICARE, SELFPAY ==
[2024-04-05] VITALS (24 sets, daily range): BP systolic 96–177; BP diastolic 48–101; PULSE 76–105; RESP 13–24; TEMP 36.2–37.6; O2SAT 92–99; BMI 38.7
--- NOTE | ~2024-04-05 | XR_ITS ---
EXAMINATION: XR chest 2V DATE: 04/05/2024 08:46 INDICATION: Shortness of breath. TECHNIQUE: Frontal and lateral views of the chest were obtained. COMPARISON: Chest 2 views 03/23/2024, chest CT 03/23/2024 FINDINGS: There are airspace opacities in left mid and lower lung zones. A calcified right lung nodul e and calcified right hilar lymph nodes are consistent with old granulomatous disease. There is a sma ll left pleural effusion. There is a tiny right pleural effusion. No pneumothorax. There is enlargeme nt of the cardiac silhouette. IMPRESSION: 1. Worsened airspace opacities in left mid and lower lung zones, consistent with atelectasis versus p neumonia. 2. Worsened small left pleural effusion. Tiny right pleural effusion. 3. Persistent enlargement of the cardiac silhouette, likely a combination of cardiomegaly and pericar dial effusion. Reviewed, dictated and finalized at location A. IMPRESSION: 1. Worsened airspace opacities in left mid and lower lung zones, consistent wit h atelectasis versus pneumonia. 2. Worsened small left pleural effusion. Tiny right pleural effusion. 3. Persistent enlargement of the cardiac silhouette, likely a combination of ca rdiomegaly and pericardial effusion.
--- NOTE | ~2024-04-05 | US_ITS ---
Limited Abdominal Sonogram: Real-time sonographic imaging of the right upper quadrant was performed. Clinical History: Cholelithiasis Findings: The liver appears normal with no evidence of mass lesion or bile duct dilatation. Main por [place] vein demonstrates normal direction of flow. The gallbladder is well distended, and demonstrates s mall stones in the gallbladder neck. The common bile duct measures 5 mm. The visualized pancreas, ao rta, and IVC are unremarkable. Impression: Cholelithiasis. Reviewed, dictated and finalized at location M. Impression: Cholelithiasis.
--- NOTE | ~2024-04-05 | CT_ITS ---
EXAMINATION: CT brain wo con DATE: 04/05/2024 22:51 INDICATION: fall . TECHNIQUE: Computed tomography (CT) of the head was performed without intravenous contrast. The mA wa s adjusted according to patient size. Iterative reconstruction technique was employed. The dose-lengt h product was 1210.67 mGy-cm. COMPARISON: 08/15/2023. FINDINGS: Mild motion artifact is present which persisted after repeat imaging attempts. No acute intracranial hemorrhage or extra-axial fluid collection. No hydrocephalus, mass, or herniation. No acute ischemic infarct. Unremarkable dural venous sinus attenuation. No acute osseous abnormality. The aerated spaces are clear. IMPRESSION: Examination is mildly limited by motion artifact. Within that constraint, no acute intracranial proce ss detected. Reviewed, dictated and finalized at location K. IMPRESSION: Examination is mildly limited by motion artifact. Within that constraint, no ac flavia intracranial process detected.
--- NOTE | ~2024-04-05 | XR_ITS ---
[id number] Ordering provider: Mitzi Wood APRN History: 63 years Male with . pleural effusion . Comparison: None. FINDINGS: MEDIASTINUM: The cardiac silhouette is moderately enlarged. LUNGS: No pneumothorax. Opacification the left lung base and left upper lobe suggestive of pneumonia. Left pleural effusion is also noted. OTHER: No free air under the diaphragm. IMPRESSION: Pneumonia in the left upper and lower lobes with pleural effusion. Reviewed, dictated and finalized at location A.
--- NOTE | ~2024-04-05 | US_ITS ---
EXAMINATION: US thoracentesis DATE: 04/12/2024 15:24 INDICATION: Left pleural effusion TECHNIQUE: The procedure and its risks and benefits were discussed with the patient. Potential risks discussed included bleeding, infection, and pneumothorax. The patient understood the risks and agreed to proceed. The skin was prepped and draped in sterile fashion. 1% lidocaine was used for local anes thesia. Under ultrasound guidance, a 5 Fr catheter with trochar was advanced into the left pleural ef fusion. Fluid was aspirated. The catheter was removed, and a dressing was applied. There were no imme diate complications. FINDINGS: Ultrasound images demonstrate a moderate-sized left pleural effusion and the catheter within the flui d. IMPRESSION: 1. Successful ultrasound-guided thoracentesis yielding 1000 mL of gael-colored fluid. Reviewed, dictated and finalized at location A. IMPRESSION: 1. Successful ultrasound-guided thoracentesis yielding 1000 mL of gael-colore d fluid.
--- NOTE | ~2024-04-05 | XR_ITS ---
EXAMINATION: XR chest 1V portable Exam Date/Time: 04/11/2024 15:05 CDT HISTORY: assess pleural effusion Comparison: 04/05/2024. RESULT: Lines, tubes, and devices: Soft tissue anchor in the right humeral head. Lungs and pleura: Vascular congestion and diffusely indistinct vessel margins. Mild diffuse bilatera l reticular opacities. Worsening left basilar airspace disease. Increasing left costophrenic angle bl unting. Cardiomediastinal silhouette: Stable. Other: No acute osseous or upper abdominal finding. IMPRESSION: Worsening lobar left lower lung atelectasis/consolidation. Worsening, now large left pleural effusion . New mild interstitial edema. Reviewed, dictated and finalized at location K. IMPRESSION: Worsening lobar left lower lung atelectasis/consolidation. Worsening, now large left pleural effusion. New mild interstitial edema.
--- NOTE | ~2024-04-05 | CT_ITS ---
EXAMINATION: CT chest abdomen pelvis wo con DATE: 04/05/2024 11:18 INDICATION: Left chest and abdominal pain. TECHNIQUE: Computed tomography (CT) of the chest, abdomen, and pelvis was performed without intraveno us contrast. Automated exposure control and iterative reconstruction technique were employed. The dos e-length product was 2000.04 mGy-cm. COMPARISON: CT chest, abdomen, and pelvis 03/23/2024 FINDINGS: CHEST CT: There is mild atelectasis in right lung. A calcified right lung nodule and calcified right hilar lymp h nodes are consistent with air old granulomatous disease. There are airspace opacities in left lower lobe and dependent left upper lobe. There is a small left pleural effusion. Cardiomegaly is noted. T here is a moderate-sized pericardial effusion. There are coronary artery calcifications. There is mil d thoracic spondylosis. ABDOMEN/PELVIS CT: Calcifications in the liver and spleen are consistent with old granulomatous disease. There are galls tones in the gallbladder, which is distended. The pancreas and and adrenal glands are normal. There i s mild atrophy of the kidneys. There is no urolithiasis. There is diverticulosis of the colon without evidence of diverticulitis. The appendix is normal. There are no pathologically enlarged lymph nodes . There is no free intraperitoneal fluid. There is internal fixation of right femur. There is shrapne l in right thigh. There is moderate lumbar spondylosis. IMPRESSION: 1. New airspace opacities in left upper lobe and left lower lobe, likely pneumonia. 2. New small left pleural effusion. 3. Mildly worsened moderate-sized pericardial effusion. 4. Cholelithiasis. New gallbladder distention may be secondary to fasting or less likely acute cholec ystitis. Correlate with physical exam. Reviewed, dictated and finalized at location A. IMPRESSION: 1. New airspace opacities in left upper lobe and left lower lobe, likely pneumo gasper. 2. New small left pleural effusion. 3. Mildly worsened moderate-sized pericardial effusion. 4. Cholelithiasis. New gallbladder distention may be secondary to fasting or le ss likely acute cholecystitis. Correlate with physical exam.
--- NOTE | 2024-04-05 08:23 | ECG_ITS ---
Test Date: 2024-04-05 08:29:13 Measurements Intervals [place] Rate: 99 P: 14 NM: 184 QRS: 8 QRSD: 75 T: 134 QT: 331 QTc: 425 Interpretive Statements SINUS RHYTHM POSSIBLE LEFT ATRIAL ENLARGEMENT [-0.1mV P WAVE IN V1/V2] ST DEVIATION AND MODERATE T-WAVE ABNORMALITY, CONSIDER LATERAL ISCHEMIA [-0.1+ mV T WAVE IN I/aVL/V5/V6] Compared to ECG 03/23/2024 21:46:43 NO SIGNIFICANT CHANGES Electronically Signed On 04-05-2024 14:48:57 CDT by Nestor Chris M.D.
[2024-04-05 09:07] LABS: Basophils Absolute Auto 0.1 K/mm3 (0.0-0.1); Basophils Percent Auto 0.4 % (0.2-1.2); Eosinophils Absolute Auto 0.1 K/mm3 (0-0.3); Eosinophils Percent Auto 0.4 % (0-4.4); Hematocrit 32.4 % (42.0-52.0); Hemoglobin 10.6 g/dL (14.0-18.0); Immature Granulocyte Absolute 0.08 K/mm3 (0.00-0.031); Immature Granulocyte Percent A 0.5 % (0-0.5); Lymphocytes Absolute Auto 1.41 K/mm3 (0.9-3.2); Lymphocytes Percent Auto 8.6 % (18.3-44.2); Mean Corpuscular HGB Conc 32.7 g/dl (32-36); Mean Corpuscular Hemoglobin 28.7 pg (26-34); Mean Corpuscular Volume 87.8 fl (80-100); Mean Platelet Volume 10.2 fl (7.4-10.4); Monocytes Absolute Auto 1.4 K/mm3 (0.1-0.6); Monocytes Percent Auto 8.8 % (2.6-8.5); Neutrophils Absolute Auto 13.4 K/mm3 (1.3-6.7); Neutrophils Percent Auto 81.3 % (45.5-73.1); Platelet Count Result 367 k/mm3 (150-375); Red Blood Count 3.69 M/mm3 (4.6-6.20); Red Cell Distribution Width 13.2 % (11.5-14.5); White Blood Count 16.4 K/mm3 (4.5-10.0)
[2024-04-05] MEDS: HYDROmorphone HCL INJ (*CRX) 1 MG/ML SYR IV PUSH (09:21)
[2024-04-05] MEDS: PANTOPRAZOLE SODIUM IV 40 MG VIAL IV PUSH (09:24)
[2024-04-05 09:27] LABS: Alanine Aminotransferase 21 U/L (6-50); Albumin Level 4.2 g/dL (3.5-5.1); Alkaline Phosphatase 94 U/L (38-126); Anion Gap 17 mmol/L (4-12); Aspartate Amino Transferase 16 U/L (17-59); Bilirubin,Total 0.8 mg/dL (0.2-1.3); Blood Urea Nitrogen 47 mg/dL (9-20); Calcium 9.1 mg/dL (8.4-10.2); Carbon Dioxide 25 mmol/L (22-30); Chloride 90 mmol/L (98-107); Estimated CRCL calculation 10 ml/min; Estimated Glomerular Filt Rate 7; Glucose 219 mg/dL (65-110); Potassium 4.5 mmol/L (3.4-5.0); Sodium 132 mmol/L (137-145)
[2024-04-05 09:43] LABS: Influenza A QL RT-PCR Negative (Negative); Influenza B QL RT-PCR Negative (Negative); RSV RNA, RT-PCR Negative (Negative); SARS-CoV-2 RNA PCR Negative (Negative)
[2024-04-05] MEDS: LORazepam INJ (*CRX) 2 MG/ML VIAL 1 MG IV PUSH (10:46)
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
[2024-04-05 12:29] LABS: Alveolar/Arterial O2 Gradient 159.6 mmHg; Carboxyhemoglobin 0.6 % THb (0-2.0); Fractional Inspired Oxygen 36 %; HCO3 ABG 28.5 mEq/l (22.0-26.0); Methemoglobin ABG 0.4 %THb (0-1.5); Oxygen Content ABG 11.2 %vol (16.0-22.0); PCO2 ABG 47.9 mmHg (35.0-45.0); PO2 FiO2 Ratio Arterial Blood 1.15 %; Reduced Hemoglobin 26.1 %THb (0-5.0); Total Hemoglobin 10.9 g/dL (12.0-18.0); pH ABG 7.393 (7.350-7.450)
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
[2024-04-05 12:33] LABS: PO2 ABG 41.5 mmHg (80.0-100.0)
[2024-04-05 12:34] LABS: Oxygen Saturation ABG 76.2 % (95.0-100.0); Oxyhemoglobin 72.9 % THb (90.0-100.0); Site Drawn RIGHT RADIAL
[2024-04-05 12:35] LABS: Device NASAL CANNULA
[2024-04-05 14:29] LABS: Lactic Acid Reflex 0.9 mmol/L (0.7-2.0)
[2024-04-05 14:50] LABS: MRSA (PCR) NOT DETECTED (NOT DETECTE)
[2024-04-05 15:13] LABS: Procalcitonin 1.5 ng/mL
[2024-04-05 15:54] LABS: Hepatitis B Surface Antigen Negative (Negative)
[2024-04-05] MEDS: SODIUM CHLORIDE 0.9% IV 1,000 ML 999 ML IV CONT (16:17)
--- NOTE | 2024-04-05 16:23 | PM.CNNEP ---
Assessment and Plan Assessment and plan (1) End stage renal disease: Code(s): N18.6 - End stage renal disease Status: Chronic Assessment and Plan: continue T/T/S dialysis schedule while hospitalized attempted HD earlier today but discontinued after 30minutes due to AV access infiltration will re-attempt dialysis again on (unless needed sooner) follow electrolytes, volume status, and clearance (2) Pneumonia: Code(s): J18.9 - Pneumonia, unspecified organism Status: Acute Assessment and Plan: as noted by imaging on admission complicated by hypoxia, cough, and congestion follow culture data on IV antibiotics supplemental oxygen - wean as tolerated suspected etiology of left sided chest/upper abdominal pain (3) Hypertension: Code(s): I10 - Essential (primary) hypertension Status: Chronic Assessment and Plan: reasonable control at this time continue home medications follw trend of hemodynamics (4) Diastolic heart failure: Code(s): I50.30 - Unspecified diastolic (congestive) heart failure Status: Chronic Assessment and Plan: as noted by recent echo on last hospitalization volume status seems relatively stable fluid removal with dialysis to maintain euvolemia (5) Pericardial effusion: Code(s): I31.39 - Other pericardial effusion (noninflammatory) Status: Acute Assessment and Plan: as noted on previous hospitalization and by recent repeat imaging doubt uremic since he is getting good clearance with dialysis continue to monitor (6) Anemia: Code(s): D64.9 - Anemia, unspecified Status: Chronic Assessment and Plan: related to ESRD and likely worsened by acute illness Epogen with HD follow trend of H/H (7) Hyperglycemia due to diabetes mellitus: Code(s): E11.65 - Type 2 diabetes mellitus with hyperglycemia Status: Chronic Assessment and Plan: follow accu-cheks glycemic control per hospitalists I will continue follow patient with you while he remains hospitalized and make further recommendations as deemed necessary. Thank you for allowing me to participate in the care of this patient. History of Present Illness Reason for Consult Consult date: 04/05/24 Reason for consult: end stage renal disease Chief Complaint Chief complaint: pneumonia,pleural effusion,end stage renal disease History of Present Illness Narrative: The patient is a 63-year-old male with a past medical history as outlined below who presented to [facility] Emergency room with left-sided chest/upper abdominal pain that occurred during his attempted dialysis session earlier today. The patient presented to his outpatient dialysis center earlier this morning for his regular scheduled dialysis treatment. He reported that he had been having some left-sided upper abdominal pain that had been fluctuating for last day or so. He was initiated on his dialysis treatment and apparently approximately 30 min into his dialysis session, he stated the left side upper abdominal pain started again and was progressively getting worse. On further assessment by the dialysis nursing staff, his left upper abdominal pain seemed to be more left-sided chest pain. Given this symptom, his dialysis treatment was aborted and EMS was called and he was subsequently transferred to the emergency room for further assessment. Workup and evaluation emergency room demonstrated the patient to be hemodynamically stable but he was noted to be hypoxic and required 4 L of supplemental oxygen to maintain his oxygen saturations. Routine blood test demonstrated an elevated white blood cell count and his chemistry was consistent with his known history of end-stage renal disease without any critical electrolyte abnormalities. A chest x-ray was significant for left-sided pneumonia and pleural effusion and a subsequent CT PE h
--- NOTE | 2024-04-05 16:23 | P.CONNP_ITS ---
Assessment and Plan Assessment and plan (1) End stage renal disease: Code(s): N18.6 - End stage renal disease Status: Chronic Assessment and Plan: * continue T/T/S dialysis schedule while hospitalized * attempted HD earlier today but discontinued after 30minutes due to AV access infiltration * will re-attempt dialysis again on (unless needed sooner) * follow electrolytes, volume status, and clearance (2) Pneumonia: Code(s): J18.9 - Pneumonia, unspecified organism Status: Acute Assessment and Plan: * as noted by imaging on admission * complicated by hypoxia, cough, and congestion * follow culture data * on IV antibiotics * supplemental oxygen - wean as tolerated * suspected etiology of left sided chest/upper abdominal pain (3) Hypertension: Code(s): I10 - Essential (primary) hypertension Status: Chronic Assessment and Plan: * reasonable control at this time * continue home medications * follw trend of hemodynamics (4) Diastolic heart failure: Code(s): I50.30 - Unspecified diastolic (congestive) heart failure Status: Chronic Assessment and Plan: * as noted by recent echo on last hospitalization * volume status seems relatively stable * fluid removal with dialysis to maintain euvolemia (5) Pericardial effusion: Code(s): I31.39 - Other pericardial effusion (noninflammatory) Status: Acute Assessment and Plan: * as noted on previous hospitalization and by recent repeat imaging * doubt uremic since he is getting good clearance with dialysis * continue to monitor (6) Anemia: Code(s): D64.9 - Anemia, unspecified Status: Chronic Assessment and Plan: * related to ESRD and likely worsened by acute illness * Epogen with HD * follow trend of H/H (7) Hyperglycemia due to diabetes mellitus: Code(s): E11.65 - Type 2 diabetes mellitus with hyperglycemia Status: Chronic Assessment and Plan: * follow accu-cheks * glycemic control per hospitalists I will continue follow patient with you while he remains hospitalized and make further recommendations as deemed necessary. Thank you for allowing me to participate in the care of this patient. History of Present Illness Reason for Consult Consult date: 04/05/24 Reason for consult: end stage renal disease Chief Complaint Chief complaint: pneumonia,pleural effusion,end stage renal disease History of Present Illness Narrative: The patient is a 63-year-old male with a past medical history as outlined below who presented to [facility] Emergency room with left-sided chest/upper abdominal pain that occurred during his attempted dialysis session earlier today. The patient presented to his outpatient dialysis center earlier this morning for his regular scheduled dialysis treatment. He reported that he had been having some left-sided upper abdominal pain that had been fluctuating for last day or so. He was initiated on his dialysis treatment and apparently approximately 30 min into his dialysis session, he stated the left side upper abdominal pain started again and was progressively getting worse. On further assessment by the dialysis nursing staff, his left upper abdominal pain seemed to be more left- sided chest pain. Given this symptom, his dialysis treatment was aborted and EMS was called and he was subsequently transferred to the emergency room for further assessment. Workup and evaluation emergency room demonstrated the patient to be hemodynamically
[2024-04-05 16:26] LABS: Hepatitis B Surface Anti Res Positive
[2024-04-05] MEDS: CALCIUM ACETATE 667 MG TABLET PO (18:31)
[2024-04-05] MEDS: hydrALAZINE 10 MG TABLET PO (18:31)
[2024-04-05] MEDS: AZITHROMYCIN 250 MG TABLET 500 MG PO (18:31)
[2024-04-05] MEDS: CEFEPIME 1 GM/NS 50 ML 1 GM/50 ML BAG IVPB (18:31)
[2024-04-05] MEDS: carvediloL 12.5 MG TABLET PO (20:04)
[2024-04-05] MEDS: AMITRIPTYLINE HCL 25 MG TABLET 50 MG PO (20:04)
[2024-04-05] MEDS: HYDROcodone/acetaminophen (*CRX) 5-325 MG TABLET 1 TAB PO (20:04)
[2024-04-05] MEDS: HEPARIN SODIUM 5,000 UNITS/ML VIAL 5000 UNITS SUB-Q (20:04)
[2024-04-05 20:53] LABS: Glucose Point of Care 261 mg/dl (65-105)
--- NOTE | 2024-04-05 21:52 | PM.CNPUL ---
Assessment and Plan Assessment and plan (1) Pneumonia: Code(s): J18.9 - Pneumonia, unspecified organism Status: Acute Assessment and Plan: He meets criteria for pneumonia with an elevated WBC, increasing procalcitonin, need for O2, shortness of breath and pulmonary infiltrates on chest CT that can be considered consistent with pneumonia. These are seen in the Left upper and lower lobes with a small left pleural effusion. He has no sputum to analyze, nothing to check a Gram stain or culture. Initial serology is negative for Influenza A/B, RSV, SARS-CoV-2; MRSA nasal swab is negative. He is treated with oral azithromycin and IV Cefepime adjusted for renal failure. This covers the main community acquired pathogens. He is diabetic, so that is a risk factor for having organisms more complicated than the usual community acquired pathogens. He has not been admitted recently, however has contact with the medical system with dialysis T/. He is not a smoker, no heavy alcohol. 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 We will continue these antibiotics, steroids, bronchodilators, incentive spirometry; consider extended respiratory pathogen panel if he does not get better. He has a moderate pericardial effusion and a small pleural effusion. CHRIS was negative last month. Lupus can cause effusions on these organs. His pericardial effusion is not causing harm, pulse pressure is normal, BP is normal, heart tones are clear. He does appear to have some diastolic dysfunction. He said that he tasted metallic flavor in his mouth, sounds like pulmonary edema with possibly blood tinged fluid. Will continue to follow with you. (2) Diastolic heart failure: Code(s): I50.30 - Unspecified diastolic (congestive) heart failure Status: Chronic Assessment and Plan: (3) JARAD on CPAP: Code(s): G47.33 - Obstructive sleep apnea (adult) (pediatric); Z99.89 - Dependence on other enabling machines and devices Status: Acute Assessment and Plan: He has JARAD, uses PAP at home, is compliant, and does not have complaints at this time. He has hospital APAP to use while he is here. History of Present Illness History of Present Illness Consult date: 04/06/24 Requesting physician: Conor Patel APRN Chief complaint: pneumonia,pleural effusion,end stage renal disease Narrative: Patient was seen Apr 06 in room 203 at 12:20 pm. NEW: Rolando Ashley is 63 years old, came to the emergency department 04/05 with increasing cough and congestion, main reason for visit was left sided abdominal pain which caused him to leave dialysis early. Chest x-ray show a worsening left pleural effusion and opacities in the left mid and lower lung zones. He has an enlarged cardiac silhouette. He had CT scans of chest/abd/pelvis = small left pleural effusion, moderate pericardial effusion with gallstones and gallbladder distension. He was hypoxic and required oxygen at 4 liters/minute. He says that he had a cough with no sputum, however he had a metallic taste in his mouth, no obvious blood. His WBC is elevated 16.4K and 81% segs, consistent with a Left shift and his procalcitonin is also elevated, 1.5 then 3.7, consistent with bacterial infection. A never smoker, he has not had recurrent pneumonias, has no known lung disease, uses no inhalers. He has not missed any dialysis sessions. PMH: ESRD on HD; HTN, IDDM, JARAD. DATA * 04/05/24 (12;26) ABG: pH 7.39, pCO2 47.9, PO2 41.5, HC03 28.5, saturation 76.2% * 04/05/24 (23:05) ABG pH 7.39 pCO2 39.3, PO2 64.2, HC03 23.5, saturation 92.5% * 04/05/24 CXR : . Worsened airspace opacities in left mid and lower lung zones, consistent with atelectasis versus pneumonia. 2. Worsened small left pleural effusion. Tiny right pleural eff
--- NOTE | 2024-04-05 22:29 | ECG_ITS ---
Test Date: 2024-04-05 22:59:29 Measurements Intervals [place] Rate: 83 P: 28 UT: 212 QRS: 7 QRSD: 82 T: 56 QT: 356 QTc: 419 Interpretive Statements SINUS RHYTHM WITH FIRST DEGREE AV BLOCK NONSPECIFIC T-WAVE ABNORMALITY Compared to ECG 04/05/2024 08:29:13 NO SIGNIFICANT CHANGES Electronically Signed On 04-06-2024 17:09:03 CDT by Nestor Chris M.D.
[2024-04-05 23:13] LABS: Alveolar/Arterial O2 Gradient 146.9 mmHg; Base Excess ABG -1.3 mEq/l (+/-2.0); Fractional Inspired Oxygen 36 %; HCO3 ABG 23.5 mEq/l (22.0-26.0); Oxygen Content ABG 13.1 %vol (16.0-22.0); Oxygen Saturation ABG 92.5 % (95.0-100.0); Oxyhemoglobin 91.1 % THb (90.0-100.0); PCO2 ABG 39.3 mmHg (35.0-45.0); PO2 ABG 64.2 mmHg (80.0-100.0); PO2 FiO2 Ratio Arterial Blood 1.78 %; Total Hemoglobin 10.2 g/dL (12.0-18.0); pH ABG 7.394 (7.350-7.450)
[2024-04-05 23:14] LABS: Device NASAL CANNULA; Modified Allen's Test Pass; Site Drawn RIGHT RADIAL
--- NOTE | 2024-04-05 23:33 | PC.NURSE ---
Pt bed alarm going off at 2224. RN to pt's bedside, called for help from other staff members. This RN entered pt's room to find him face down on the floor. Pt was diaphoretic and incontinent. Pt was attempting to roll to his side. First RN into room notes that pt was completely unresponsive when she arrived into the room. Staff members assisted pt into bed. VS obtained and blood glucose obtained. Pt SOB and unable to speak at this time. RN notified Dr. Bryant. Pt taken to head CT. Pt conversational while in head CT. Pt was anxious and did not want to lay flat for CT scan. When brought back to room, repeat VS obtained. Pt quickly became more drowsy. EKG and ABGs obtained. Pt able to state that he is at [facility] and reports the day as Thursday. Unable to answer further questions at that time. Pt able to raise arms, but had severe impairment when trying to touch nose. Dr. Bryant at pt's bedside to evaluate. EKG, ABG, head CT reviewed at this time. Staff to perform hourly neuro checks.
[2024-04-05 23:52] LABS: Glucose Point of Care 295 mg/dl (65-105)
[2024-04-06] VITALS (29 sets, daily range): BP systolic 95–148; BP diastolic 41–85; PULSE 73–87; RESP 14–26; TEMP 36.1–36.6; O2SAT 90–99
--- NOTE | 2024-04-06 01:44 | PC.NURSE ---
Attempted to call pt's daughter to update her regarding pt's fall and to notify that pt has been moved to room 203. Message states call cannot be completed. No other contact information available.
[2024-04-06 05:05] LABS: Basophils Absolute Auto 0.1 K/mm3 (0.0-0.1); Basophils Percent Auto 0.3 % (0.2-1.2); Eosinophils Percent Auto 0.1 % (0-4.4); Immature Granulocyte Percent A 0.6 % (0-0.5); Lymphocytes Absolute Auto 1.06 K/mm3 (0.9-3.2); Lymphocytes Percent Auto 6.1 % (18.3-44.2); Mean Corpuscular Hemoglobin 27.8 pg (26-34); Mean Corpuscular Volume 89.5 fl (80-100); Mean Platelet Volume 10.7 fl (7.4-10.4); Monocytes Absolute Auto 1.3 K/mm3 (0.1-0.6); Monocytes Percent Auto 7.3 % (2.6-8.5); Neutrophils Absolute Auto 14.8 K/mm3 (1.3-6.7); Neutrophils Percent Auto 85.6 % (45.5-73.1); Platelet Count Result 399 k/mm3 (150-375); Red Blood Count 3.24 M/mm3 (4.6-6.20); Red Cell Distribution Width 13.4 % (11.5-14.5); White Blood Count 17.3 K/mm3 (4.5-10.0)
[2024-04-06 05:22] LABS: Alanine Aminotransferase 20 U/L (6-50); Alkaline Phosphatase 85 U/L (38-126); Anion Gap 16 mmol/L (4-12); Aspartate Amino Transferase 20 U/L (17-59); Bilirubin,Total 0.6 mg/dL (0.2-1.3); Blood Urea Nitrogen 56 mg/dL (9-20); Calcium 9.1 mg/dL (8.4-10.2); Carbon Dioxide 26 mmol/L (22-30); Chloride 88 mmol/L (98-107); Estimated CRCL calculation 8 ml/min; Estimated Glomerular Filt Rate 5; Glucose 284 mg/dL (65-110); Magnesium 2.1 mg/dL (1.6-2.3); Phosphorus 7.3 mg/dL (2.5-4.5); Potassium 5.7 mmol/L (3.4-5.0); Sodium 130 mmol/L (137-145)
[2024-04-06 05:50] LABS: Procalcitonin 3.7 ng/mL
[2024-04-06 06:42] LABS: Glucose Point of Care 223 mg/dl (65-105)
--- NOTE | 2024-04-06 09:07 | PM.IMPN ---
Progress Note: A&P Assessment and Plan (1) Pneumonia: Code(s): J18.9 - Pneumonia, unspecified organism Status: Acute Assessment and Plan: Patient presented with left upper quadrant abdominal pain and found left upper and lower lobe pneumonia. white blood cell count elevated and patient requiring oxygen at 4 L cough and congestion the last few days, cough is nonproductive broadened coverage with cefepime since patient gets dialysis Sputum culture ordered, blood cultures pending MRSA PCR swab negative Incentive spirometry, Pep therapy DuoNebs q.6, Mucinex b.i.d. Wean oxygen as tolerated Concerns for possible acute cholecystitis on CT. He is having and abdominal ultrasound done today. His white count remains elevated, slightly increased and procalcitonin is increased as well. This could be possibly due to lack of clearance given his chronic renal failure. He has also been having diarrhea. Adding Flagyl for possible abdominal infection contributing. Pulmonology has been consulted recs are appreciated (2) End-stage renal disease on hemodialysis: Code(s): N18.6 - End stage renal disease; Z99.2 - Dependence on renal dialysis Status: Acute Assessment and Plan: Thursday dialysis schedule Nephrology consulted. (3) JARAD on CPAP: Code(s): G47.33 - Obstructive sleep apnea (adult) (pediatric); Z99.89 - Dependence on other enabling machines and devices Status: Acute Assessment and Plan: AutoPAP available, if respiratory symptoms worsen would utilize BiPAP (4) Hypertension: Code(s): I10 - Essential (primary) hypertension Status: Chronic Assessment and Plan: blood pressure reviewed on 04/05/2024, stable, continue home medications (5) Diastolic dysfunction: Code(s): I51.89 - Other ill-defined heart diseases Status: Acute Assessment and Plan: History diastolic dysfunction grade 1, recent echocardiogram completed last month, concurrent pericardial effusion noted (6) Hyperglycemia due to diabetes mellitus: Code(s): E11.65 - Type 2 diabetes mellitus with hyperglycemia Status: Chronic Assessment and Plan: insulin-dependent type 2 diabetes, continuous glucose monitor in place, ACHS fingerstick glucose with high-dose sliding scale ordered, hemoglobin A1c 9.3% fasting blood glucose 284 Will add Lantus at 0.15 units per kg Plan DVT prophylaxis: Heparin GI prophylaxis: na Glycemic control: High-dose sliding scale insulin, a.c. HS Accu-Cheks, hypoglycemia protocol, Lantus Code Status: Full code Disposition: Patient presented from dialysis center with complaints of left upper quadrant abdominal pain worsening with deep inspiration. He was found to have pneumonia on CT imaging with a leukocytosis and positive procalcitonin. He also had a new oxygen requirement of 4 L. He was being admitted for IV antibiotics, further workup of pneumonia, medical management of his chronic conditions. Nephrology has been consulted for his dialysis. Pulmonology was consulted for pneumonia. Medication reconciliation obtained via the following: Nurse completed on admission The file time of this note does not necessarily represent the time the patient was seen. Advance Care Plan I have confirmed that the patient's Advanced Care Plan is present, code status is documented, or surrogate decision maker is listed in patient medical record.: Yes Medication Reconciliation I have utilized all available resources to obtain, update and review the patients current medications (includes all prescriptions, OTC, herbals, cannabis, and nutritional supplements).: Yes Subjective Date/time seen: 04/06/24 09:07 Interval history: Th
[2024-04-06] MEDS: amLODIPine BESYLATE 10 MG TABLET PO (11:51)
[2024-04-06] MEDS: HYDROcodone/acetaminophen (*CRX) 5-325 MG TABLET 1 TAB PO ×2 (11:51→21:16)
[2024-04-06] MEDS: carvediloL 12.5 MG TABLET PO ×2 (11:51→21:17)
[2024-04-06] MEDS: CALCIUM ACETATE 667 MG TABLET PO ×2 (11:51→16:59)
[2024-04-06] MEDS: ATORVASTATIN 40 MG TABLET PO (11:51)
[2024-04-06] MEDS: NIFEdipine 30 MG TAB.ER.24 60 MG PO (11:51)
[2024-04-06] MEDS: SODIUM ZIRCONIUM CYCLOSILICATE 10 GM POWD.PACK PO ×2 (11:53→17:10)
[2024-04-06 12:00] LABS: Glucose Point of Care 151 mg/dl (65-105)
[2024-04-06] MEDS: metroNIDAZOLE 500 MG/ISO 100ML 500 MG/100 ML BAG 100 MG IVPB ×2 (12:12→17:01)
--- NOTE | 2024-04-06 13:14 | PM.PNNEP ---
Progress Note: A&P Assessment and Plan (1) End stage renal disease: Code(s): N18.6 - End stage renal disease Status: Chronic Assessment and Plan: HD tomorrow continue T/T/S dialysis schedule while hospitalized follow electrolytes, volume status, and clearance (2) Pneumonia: Code(s): J18.9 - Pneumonia, unspecified organism Status: Acute Assessment and Plan: as noted by imaging on admission complicated by hypoxia, cough, and congestion follow culture data on IV antibiotics supplemental oxygen - wean as tolerated suspected etiology of left sided chest/upper abdominal pain (3) Hypertension: Code(s): I10 - Essential (primary) hypertension Status: Chronic Assessment and Plan: reasonable control at this time continue home medications follw trend of hemodynamics (4) Diastolic heart failure: Code(s): I50.30 - Unspecified diastolic (congestive) heart failure Status: Chronic Assessment and Plan: as noted by recent echo on last hospitalization volume status seems relatively stable fluid removal with dialysis to maintain euvolemia (5) Pericardial effusion: Code(s): I31.39 - Other pericardial effusion (noninflammatory) Status: Acute Assessment and Plan: as noted on previous hospitalization and by recent repeat imaging doubt uremic since he is getting good clearance with dialysis continue to monitor (6) Anemia: Code(s): D64.9 - Anemia, unspecified Status: Chronic Assessment and Plan: related to ESRD and likely worsened by acute illness Epogen with HD follow trend of H/H (7) Hyperglycemia due to diabetes mellitus: Code(s): E11.65 - Type 2 diabetes mellitus with hyperglycemia Status: Chronic Assessment and Plan: follow accu-cheks glycemic control per hospitalists Will continue to follow. Subjective Date/time seen: 04/06/24 13:14 Interval history: Follow-up for end stage renal disease on hemodialysis. No apparent distress noted at the time of my visit; breathing/respiratory status seems stable but still reports some shortness of breath; reports some increased discomfort with taking deep breaths as well. Exam Narrative: General: WD/WN male in NAD Heart: normal S1 and S2; no rub Lungs: diminished at bases Abdomen: soft, nontender, nondistended, positive bowel sounds Extremities: no cyanosis or clubbing; no edema Skin: warm and dry Objective Data Vital Signs Vital Signs: Vital Signs Temp Pulse Resp BP Pulse Ox O2 Del Method O2 Flow Rate 04/06/24 13:05 96 Nasal Cannula 2 04/06/24 12:00 83 99 Nasal Cannula 2 04/06/24 11:51 83 04/06/24 11:37 97.9 F 83 20 148/85 H 95 04/06/24 08:00 94 CPAP 04/06/24 08:59 94 CPAP 4 04/06/24 08:59 83 20 94 CPAP 04/06/24 07:48 97.5 F L 81 22 H 139/72 96 04/06/24 06:00 86 04/06/24 04:42 97.1 F L 81 22 H 123/75 95 04/06/24 04:00 83 04/06/24 03:00 97.0 F L 86 26 H 119/65 91 04/06/24 02:09 87 25 H 96 CPAP 04/06/24 02:00 84 04/06/24 01:57 97.2 F L 82 26 H 95/41 L 95 04/06/24 01:16 97.3 F L 85 24 H 120/73 95 04/06/24 00:00 82 04/05/24 23:52 98.4 F 82 23 H 96/58 L 98 04/05/24 22:25 97.4 F L 82 20 115/71 94 04/05/24 23:19 97.1 F L 82 22 H 103/63 99 04/05/24 23:19 92 Nasal Cannula 4 04/05/24 22:00 76 04/05/24 20:00 94 04/05/24 20:04 80 04/05/24 19:37 98.5 F 96 24 H 156/89 H 93 04/05/24 18:00 94 04/05/24 16:00 105 H 04/05/24 16:00 95 Nasal Cannula 4 04/05/24 16:00 98.4 F 93 16 145/60 H 96 04/05/24 15:37 98.4 F 92 20 129/48 L Intake/Output Intake/Output: Intake & Output 04/03/24 04/04/24 04/05/24 04/06/24 23:59 23:59 23:59 23:59 Intake Total 340 240 Output To
--- NOTE | 2024-04-06 13:14 | P.PNNP_ITS ---
Progress Note: A&P Assessment and Plan (1) End stage renal disease: Code(s): N18.6 - End stage renal disease Status: Chronic Assessment and Plan: * HD tomorrow * continue T/T/S dialysis schedule while hospitalized * follow electrolytes, volume status, and clearance (2) Pneumonia: Code(s): J18.9 - Pneumonia, unspecified organism Status: Acute Assessment and Plan: * as noted by imaging on admission * complicated by hypoxia, cough, and congestion * follow culture data * on IV antibiotics * supplemental oxygen - wean as tolerated * suspected etiology of left sided chest/upper abdominal pain (3) Hypertension: Code(s): I10 - Essential (primary) hypertension Status: Chronic Assessment and Plan: * reasonable control at this time * continue home medications * follw trend of hemodynamics (4) Diastolic heart failure: Code(s): I50.30 - Unspecified diastolic (congestive) heart failure Status: Chronic Assessment and Plan: * as noted by recent echo on last hospitalization * volume status seems relatively stable * fluid removal with dialysis to maintain euvolemia (5) Pericardial effusion: Code(s): I31.39 - Other pericardial effusion (noninflammatory) Status: Acute Assessment and Plan: * as noted on previous hospitalization and by recent repeat imaging * doubt uremic since he is getting good clearance with dialysis * continue to monitor (6) Anemia: Code(s): D64.9 - Anemia, unspecified Status: Chronic Assessment and Plan: * related to ESRD and likely worsened by acute illness * Epogen with HD * follow trend of H/H (7) Hyperglycemia due to diabetes mellitus: Code(s): E11.65 - Type 2 diabetes mellitus with hyperglycemia Status: Chronic Assessment and Plan: * follow accu-cheks * glycemic control per hospitalists Will continue to follow. Subjective Date/time seen: 04/06/24 13:14 Interval history: Follow-up for end stage renal disease on hemodialysis. No apparent distress noted at the time of my visit; breathing/respiratory status seems stable but still reports some shortness of breath; reports some increased discomfort with taking deep breaths as well. Exam Narrative: General: WD/WN male in NAD Heart: normal S1 and S2; no rub Lungs: diminished at bases Abdomen: soft, nontender, nondistended, positive bowel sounds Extremities: no cyanosis or clubbing; no edema Skin: warm and dry Objective Data Vital Signs Vital Signs: Vital Signs Temp Pulse Resp BP Pulse Ox O2 Del Method O2 Flow Rate 04/06/24 13:05 96 Nasal Cannula 2 04/06/24 12:00 83 99 Nasal Cannula 2 04/06/24 11:51 83 04/06/24 11:37 97.9 F 83 20 148/85 H 95 04/06/24 08:00 94 CPAP 04/06/24 08:59 94 CPAP 4 04/06/24 08:59 83 20 94 CPAP 04/06/24 07:48 97.5 F L 81 22 H 139/72 96 04/06/24 06:00 86 04/06/24 04:42 97.1 F L 81 22 H 123/75 95 04/06/24 04:00 83 04/06/24 03:00 97.0 F L 86 26 H 119/65 91 04/06/24 02:09 87 25 H 96 CPAP 04/06/24 02:00 84 04/06/24 01:57 97.2 F L 82 26 H 95/41 L 95 04/06/24 01:16 97.3 F L 85 24 H 120/73 95
[2024-04-06] MEDS: IPRATROPIUM 0.5 MG/ALBUTEROL SULFATE 2.5 MG AMPUL.NEB 3 ML INHALATION ×2 (13:15→20:25)
[2024-04-06] MEDS: AZITHROMYCIN 250 MG TABLET 500 MG PO (13:30)
[2024-04-06 16:18] LABS: Glucose Point of Care 243 mg/dl (65-105)
[2024-04-06] MEDS: CEFEPIME 1 GM/NS 50 ML 1 GM/50 ML BAG IVPB (17:01)
[2024-04-06] MEDS: INSULIN ASPART (*BKC) 100 UNITS/ML SUB-Q (17:01)
[2024-04-06 20:02] LABS: Glucose Point of Care 180 mg/dl (65-105)
[2024-04-06] MEDS: AMITRIPTYLINE HCL 25 MG TABLET 50 MG PO (21:16)
[2024-04-06] MEDS: guaiFENesin 12 HR 600 MG TABCR PO (21:16)
[2024-04-06] MEDS: INSULIN GLARGINE (*BKC) 100 UNITS/ML 16 UNITS SUB-Q (21:17)
[2024-04-07] VITALS (43 sets, daily range): BP systolic 88–149; BP diastolic 55–103; PULSE 72–94; RESP 16–24; TEMP 36.4–37.5; O2SAT 90–94
[2024-04-07] MEDS: metroNIDAZOLE 500 MG/ISO 100ML 500 MG/100 ML BAG 100 MG IVPB ×2 (02:49→13:16)
[2024-04-07] MEDS: IPRATROPIUM 0.5 MG/ALBUTEROL SULFATE 2.5 MG AMPUL.NEB 3 ML INHALATION ×4 (02:58→20:37)
[2024-04-07 05:56] LABS: Basophils Absolute Auto 0.1 K/mm3 (0.0-0.1); Basophils Percent Auto 0.3 % (0.2-1.2); Eosinophils Absolute Auto 0.1 K/mm3 (0-0.3); Eosinophils Percent Auto 0.9 % (0-4.4); Hematocrit 29.5 % (42.0-52.0); Hemoglobin 9.1 g/dL (14.0-18.0); Immature Granulocyte Absolute 0.11 K/mm3 (0.00-0.031); Immature Granulocyte Percent A 0.7 % (0-0.5); Lymphocytes Absolute Auto 1.04 K/mm3 (0.9-3.2); Lymphocytes Percent Auto 6.9 % (18.3-44.2); Mean Corpuscular HGB Conc 30.8 g/dl (32-36); Mean Corpuscular Volume 90.8 fl (80-100); Monocytes Absolute Auto 1.4 K/mm3 (0.1-0.6); Monocytes Percent Auto 9.1 % (2.6-8.5); Neutrophils Absolute Auto 12.4 K/mm3 (1.3-6.7); Neutrophils Percent Auto 82.1 % (45.5-73.1); Platelet Count Result 400 k/mm3 (150-375); Red Blood Count 3.25 M/mm3 (4.6-6.20); Red Cell Distribution Width 13.4 % (11.5-14.5); White Blood Count 15.1 K/mm3 (4.5-10.0)
[2024-04-07 06:29] LABS: Alanine Aminotransferase 19 U/L (6-50); Albumin Level 3.7 g/dL (3.5-5.1); Alkaline Phosphatase 79 U/L (38-126); Anion Gap 18 mmol/L (4-12); Aspartate Amino Transferase 22 U/L (17-59); Bilirubin,Total 0.6 mg/dL (0.2-1.3); Blood Urea Nitrogen 74 mg/dL (9-20); Calcium 9.1 mg/dL (8.4-10.2); Carbon Dioxide 27 mmol/L (22-30); Chloride 87 mmol/L (98-107); Estimated CRCL calculation 7 ml/min; Estimated Glomerular Filt Rate 5; Glucose 188 mg/dL (65-110); Magnesium 2.2 mg/dL (1.6-2.3); Phosphorus 8.4 mg/dL (2.5-4.5); Potassium 5.6 mmol/L (3.4-5.0); Sodium 132 mmol/L (137-145)
[2024-04-07 06:35] LABS: Procalcitonin 7.8 ng/mL
[2024-04-07 07:11] LABS: Glucose Point of Care 197 mg/dl (65-105)
[2024-04-07] MEDS: NIFEdipine 30 MG TAB.ER.24 60 MG PO (08:18)
[2024-04-07] MEDS: HYDROcodone/acetaminophen (*CRX) 5-325 MG TABLET 1 TAB PO ×2 (08:18→20:46)
[2024-04-07] MEDS: CALCIUM ACETATE 667 MG TABLET PO ×3 (08:18→17:04)
[2024-04-07] MEDS: AZITHROMYCIN 250 MG TABLET 500 MG PO (08:18)
[2024-04-07] MEDS: ATORVASTATIN 40 MG TABLET PO (08:18)
[2024-04-07] MEDS: guaiFENesin 12 HR 600 MG TABCR PO ×2 (08:18→20:45)
--- NOTE | 2024-04-07 08:23 | PC.NURSE ---
Pt to dialysis via bed with oxygen on at 2L NC.
--- NOTE | 2024-04-07 08:55 | PM.IMPN ---
Progress Note: A&P Assessment and Plan (1) Pneumonia: Code(s): J18.9 - Pneumonia, unspecified organism Status: Acute Assessment and Plan: Patient presented with left upper quadrant abdominal pain and found left upper and lower lobe pneumonia. white blood cell count elevated and patient requiring oxygen at 4 L cough and congestion the last few days, cough is nonproductive broadened coverage with cefepime since patient gets dialysis Sputum culture ordered, blood cultures pending MRSA PCR swab negative Incentive spirometry, Pep therapy DuoNebs q.6, Mucinex b.i.d. Wean oxygen as tolerated Pulmonology has been consulted recs are appreciated (2) End-stage renal disease on hemodialysis: Code(s): N18.6 - End stage renal disease; Z99.2 - Dependence on renal dialysis Status: Acute Assessment and Plan: Thursday dialysis schedule Nephrology consulted. (3) JARAD on CPAP: Code(s): G47.33 - Obstructive sleep apnea (adult) (pediatric); Z99.89 - Dependence on other enabling machines and devices Status: Acute Assessment and Plan: AutoPAP available, if respiratory symptoms worsen would utilize BiPAP (4) Hypertension: Code(s): I10 - Essential (primary) hypertension Status: Chronic Assessment and Plan: blood pressure reviewed on 04/05/2024, stable, continue home medications (5) Diastolic dysfunction: Code(s): I51.89 - Other ill-defined heart diseases Status: Acute Assessment and Plan: History diastolic dysfunction grade 1, recent echocardiogram completed last month, concurrent pericardial effusion noted (6) Hyperglycemia due to diabetes mellitus: Code(s): E11.65 - Type 2 diabetes mellitus with hyperglycemia Status: Chronic Assessment and Plan: insulin-dependent type 2 diabetes, continuous glucose monitor in place, ACHS fingerstick glucose with high-dose sliding scale ordered, hemoglobin A1c 9.3% fasting blood glucose 188 Will add Lantus at 0.15 units per kg Plan DVT prophylaxis: Heparin GI prophylaxis: NA Glycemic control: High-dose sliding scale insulin, a.c. HS Accu-Cheks, hypoglycemia protocol, Lantus Code Status: Full code Disposition: Patient presented from dialysis center with complaints of left upper quadrant abdominal pain worsening with deep inspiration. He was found to have pneumonia on CT imaging with a leukocytosis and positive procalcitonin. He also had a new oxygen requirement of 4 L. He was being admitted for IV antibiotics, further workup of pneumonia, medical management of his chronic conditions. Nephrology has been consulted for his dialysis. Pulmonology was consulted for pneumonia. Medication reconciliation obtained via the following: Nurse completed on admission The file time of this note does not necessarily represent the time the patient was seen. Advance Care Plan I have confirmed that the patient's Advanced Care Plan is present, code status is documented, or surrogate decision maker is listed in patient medical record.: Yes Medication Reconciliation I have utilized all available resources to obtain, update and review the patients current medications (includes all prescriptions, OTC, herbals, cannabis, and nutritional supplements).: Yes Subjective Date/time seen: 04/07/24 08:55 Interval history: This is a 63-year-old male patient end-stage renal disease on hemodialysis Thursday, history of hypertension, insulin-dependent diabetes and obstructive sleep apnea presented to the emergency department complaints left-sided upper abdominal pain. Patient to be hypoxic requiring 4 L of oxygen. Additionally chest x-ray showed pneumonia and pleural effusion.
--- NOTE | 2024-04-07 09:28 | P.PNNP_ITS ---
Progress Note: A&P Assessment and Plan (1) End stage renal disease: Code(s): N18.6 - End stage renal disease Status: Chronic Assessment and Plan: * HD supervised today * continue T/T/S dialysis schedule while hospitalized * follow electrolytes, volume status, and clearance (2) Pneumonia: Code(s): J18.9 - Pneumonia, unspecified organism Status: Acute Assessment and Plan: * as noted by imaging on admission, left upper and lower lobe infiltrates * complicated by hypoxia, cough, and congestion * follow culture data: so far no growth (04/07) * on IV antibiotics: azithromycin + cefepime + metronidazole * supplemental oxygen - still using * suspected etiology of left sided chest/upper abdominal pain (3) Hypertension: Code(s): I10 - Essential (primary) hypertension Status: Chronic Assessment and Plan: * reasonable control at this time * continue home medications * follw trend of hemodynamics (4) Diastolic heart failure: Code(s): I50.30 - Unspecified diastolic (congestive) heart failure Status: Chronic Assessment and Plan: * as noted by recent echo on last hospitalization * volume status seems relatively stable * fluid removal with dialysis to maintain euvolemia (5) Pericardial effusion: Code(s): I31.39 - Other pericardial effusion (noninflammatory) Status: Acute Assessment and Plan: * as noted on previous hospitalization and by recent repeat imaging * doubt uremic since he is getting good clearance with dialysis * continue to monitor, increased effusion per imaging study atr admission (6) Anemia: Code(s): D64.9 - Anemia, unspecified Status: Chronic Assessment and Plan: * related to ESRD and likely worsened by acute illness * Epogen with HD * follow trend of H/H (7) Hyperglycemia due to diabetes mellitus: Code(s): E11.65 - Type 2 diabetes mellitus with hyperglycemia Status: Chronic Assessment and Plan: * follow accu-cheks * glycemic control per hospitalists Will continue to follow. Subjective Date/time seen: 04/07/24 09:28 Interval history: ESRD follow up Seen and examined on hemodialysis Hemodialysis supervised UF goal 2L, QB 400/QD 600 Review of Systems Review of Systems: Came in with left side lower precordial pain and SOB Last admission noted pericardial effusion, thought pericarditis, but later felt not to be. Is feeling better today Exam Const: General: no acute distress Eyes: Sclera: sclerae normal Neck: Neck: no JVD Resp: Effort & Inspection: normal respiratory effort Auscultation: clear to auscultation bilaterally and diminished lung sounds Cardio: Rate: regular rate Rhythm: regular rhythm Heart sounds: no rubs GI: GI Palp: Yes Soft to palpation and No Tenderness to palpation present (GI) Skin: General skin exam: no rashes or lesions noted Neuro: Speech: normal speech Other: oriented x 3 Extrem: General: normal to inspection and no edema Psych: Mental Status: mental status grossly normal Affect: normal affect Objective Data Vital Signs Vital Signs: Vital Signs - 24 hr 04/06/24 11:37 04/06/24 11:51 04/06/24 10:00 Temperature 36.6 C Pulse Rate 83 83 83 Respira
--- NOTE | 2024-04-07 09:28 | PM.PNNEP ---
Progress Note: A&P Assessment and Plan (1) End stage renal disease: Code(s): N18.6 - End stage renal disease Status: Chronic Assessment and Plan: HD supervised today continue T/T/S dialysis schedule while hospitalized follow electrolytes, volume status, and clearance (2) Pneumonia: Code(s): J18.9 - Pneumonia, unspecified organism Status: Acute Assessment and Plan: as noted by imaging on admission, left upper and lower lobe infiltrates complicated by hypoxia, cough, and congestion follow culture data: BC so far no growth (04/07) on IV antibiotics: azithromycin + cefepime + metronidazole supplemental oxygen - still using suspected etiology of left sided chest/upper abdominal pain (3) Hypertension: Code(s): I10 - Essential (primary) hypertension Status: Chronic Assessment and Plan: reasonable control at this time continue home medications follw trend of hemodynamics (4) Diastolic heart failure: Code(s): I50.30 - Unspecified diastolic (congestive) heart failure Status: Chronic Assessment and Plan: as noted by recent echo on last hospitalization volume status seems relatively stable fluid removal with dialysis to maintain euvolemia (5) Pericardial effusion: Code(s): I31.39 - Other pericardial effusion (noninflammatory) Status: Acute Assessment and Plan: as noted on previous hospitalization and by recent repeat imaging doubt uremic since he is getting good clearance with dialysis continue to monitor, increased effusion per imaging study atr admission (6) Anemia: Code(s): D64.9 - Anemia, unspecified Status: Chronic Assessment and Plan: related to ESRD and likely worsened by acute illness Epogen with HD follow trend of H/H (7) Hyperglycemia due to diabetes mellitus: Code(s): E11.65 - Type 2 diabetes mellitus with hyperglycemia Status: Chronic Assessment and Plan: follow accu-cheks glycemic control per hospitalists Will continue to follow. Subjective Date/time seen: 04/07/24 09:28 Interval history: ESRD follow up Seen and examined on hemodialysis Hemodialysis supervised UF goal 2L, QB 400/QD 600 Review of Systems Review of Systems: Came in with left side lower precordial pain and SOB Last admission noted pericardial effusion, thought pericarditis, but later felt not to be. Is feeling better today Exam Const: General: no acute distress Eyes: Sclera: sclerae normal Neck: Neck: no JVD Resp: Effort & Inspection: normal respiratory effort Auscultation: clear to auscultation bilaterally and diminished lung sounds Cardio: Rate: regular rate Rhythm: regular rhythm Heart sounds: no rubs GI: GI Palp: Yes Soft to palpation and No Tenderness to palpation present (GI) Skin: General skin exam: no rashes or lesions noted Neuro: Speech: normal speech Other: oriented x 3 Extrem: General: normal to inspection and no edema Psych: Mental Status: mental status grossly normal Affect: normal affect Objective Data Vital Signs Vital Signs: Vital Signs - 24 hr 04/06/24 11:37 04/06/24 11:51 04/06/24 10:00 Temperature 36.6 C Pulse Rate 83 83 83 Respiratory Rate 20 Blood Pressure 148/85 H Pulse Oximetry 95 Oxygen Delivery Oxygen Flow Rate Fraction of Inspired Oxygen 04/06/24 12:00 04/06/24 12:00 04/06/24 11:30 Temperature Pulse Rate 83 Respiratory Rate Blood Pressure Pulse Oximetry 99 99 Oxygen Delivery Nasal Cannula Oxygen Flow Rate 2 2 Fraction of Inspired Oxygen 04/06/24 13:15 04/06/24 13:15 04/06/24 13:25 Temperature Pulse Rate 77 78 Respiratory Rate 20 20 Blood Pressure Pulse Oximetry 96 Oxygen Delivery Nasal Cannula Oxygen Flow Rate 2 Fraction of Inspired Oxygen 28 04/06/24 14:00 04/06/24 15:49 04/06/24 16:00 Temperature 36.2 C L Pulse
[2024-04-07] MEDS: EPOETIN ALFA-EPBX 10,000 UNITS/ML VIAL 10000 UNITS IV PUSH (09:55)
--- NOTE | 2024-04-07 13:12 | PC.NURSE ---
Pt returned from dialysis via bed. No issues noted
[2024-04-07] MEDS: amLODIPine BESYLATE 10 MG TABLET PO (13:15)
[2024-04-07] MEDS: carvediloL 12.5 MG TABLET PO ×2 (13:15→20:45)
[2024-04-07 13:25] LABS: Glucose Point of Care 116 mg/dl (65-105)
[2024-04-07 15:29] LABS: Glucose Point of Care 188 mg/dl (65-105)
--- NOTE | 2024-04-07 16:33 | PC.NURSE ---
This patient, Rolando Ashley, was received from IMU on 04/07/24 at 1633. Patient/family oriented to unit policies and routines
--- NOTE | 2024-04-07 16:34 | PC.NURSE ---
This patient, Rolando Ashley, was transferred to [[id number] ] on 04/07/24 at 1615. Personal belongings sent with patient. Report given to [DARIUS Gonzales @ 1660]. Appropriate documentation sent with patient.
[2024-04-07] MEDS: CEFEPIME 1 GM/NS 50 ML 1 GM/50 ML BAG IVPB (17:04)
--- NOTE | 2024-04-07 18:24 | PM.PNPUL ---
Progress Note: A&P Assessment and Plan (1) Pneumonia: Code(s): J18.9 - Pneumonia, unspecified organism Status: Acute Assessment and Plan: He meets criteria for pneumonia with an elevated WBC, increasing procalcitonin, need for O2, shortness of breath and pulmonary infiltrates on chest CT that can be considered consistent with pneumonia. These are seen in the Left upper and lower lobes with a small left pleural effusion. He has no sputum to analyze, nothing to check a Gram stain or culture. Initial serology is negative for Influenza A/B, RSV, SARS-CoV-2; MRSA nasal swab is negative. He is treated with oral azithromycin and IV Cefepime adjusted for renal failure. This covers the main community acquired pathogens. He is diabetic, so that is a risk factor for having organisms more complicated than the usual community acquired pathogens. He has not been admitted recently, however has contact with the medical system with dialysis T/. He is not a smoker, no heavy alcohol. 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 We will continue these antibiotics, steroids, bronchodilators, incentive spirometry. Will order extended respiratory pathogen and send current sputum for Gram stain, c&s, AFB and fungal studies. (2) JARAD on CPAP: Code(s): G47.33 - Obstructive sleep apnea (adult) (pediatric); Z99.89 - Dependence on other enabling machines and devices Status: Acute Assessment and Plan: He has JARAD, uses PAP at home, is compliant, and does not have complaints at this time. He has hospital APAP to use while he is here. Plan Will order extended respiratory pathogen and send current sputum for Gram stain, c&s, AFB and fungal studies. Urine antigens - Strep pneumo and Legionella urine antigens. Continue current treatment with IV Cefepime and oral azithromycin. Blood cultures are negative. He has had 2-3 milder cases of pneumonia in the last few years, treated out patient. He has no obvious problems with swallowing, no alcohol; he does not appear to aspirate. Speech Evaluation if he does not recover easily. He is 63, not that old, no strokes. Possible silent aspiration? Subjective Date/time seen: 04/07/24 18:24 Interval history: 04/07/2024; follow up pulmonary visit; Os is lower 2 L/min saturation is 90-91%, yesterday was on 4 L/min. He had a dialysis treatment today, now moved from IMU to Room 341. He is sitting in a chair. Cough is productive now, sputum is thick and light brown. He had pneumonia 2-3 times in the last few years, never required hospital admission. Started HD Jul 2023. HISTORY = = = = = = = = = = = 04/06/2024, new pulmonary consult; Rolando Ashley is 63 years old, came to the emergency department 04/05 with increasing cough and congestion, main reason for visit was left sided abdominal pain which caused him to leave dialysis early. Chest x-ray show a worsening left pleural effusion and opacities in the left mid and lower lung zones. He has an enlarged cardiac silhouette. He had CT scans of chest/abd/pelvis = small left pleural effusion, moderate pericardial effusion with gallstones and gallbladder distension. He was hypoxic and required oxygen at 4 liters/minute. He says that he had a cough with no sputum, however he had a metallic taste in his mouth, no obvious blood. His WBC is elevated 16.4K and 81% segs, consistent with a Left shift and his procalcitonin is also elevated, 1.5 then 3.7, consistent with bacterial infection. A never smoker, he has not had recurrent pneumonias, has no known lung disease, uses no inhalers. He has not missed any dialysis sessions. PMH: ESRD on HD started treatments Jul 2023; HTN, IDDM, JARAD. DATA * 04/05/24 (12;26) ABG: pH 7.39, pCO2 47.9, PO2 41.5, HC03 28.5, saturation 76.2% * 04/05/24 (23:05) ABG pH 7.39 pCO2 39.3, PO2 64.2, HC03 23.5, sa
[2024-04-07 20:41] LABS: Glucose Point of Care 222 mg/dl (65-105)
[2024-04-07] MEDS: AMITRIPTYLINE HCL 25 MG TABLET 50 MG PO (20:45)
[2024-04-07] MEDS: INSULIN GLARGINE (*BKC) 100 UNITS/ML 16 UNITS SUB-Q (20:46)
--- NOTE | 2024-04-07 23:21 | ECG_ITS ---
Test Date: 2024-04-07 23:39:31 Measurements Intervals Potter Rate: 73 P: 36 HI: 195 QRS: 18 QRSD: 96 T: 60 QT: 400 QTc: 442 Interpretive Statements SINUS RHYTHM NONSPECIFIC T-WAVE ABNORMALITY Compared to ECG 04/05/2024 22:59:29 First degree AV block no longer present T-wave abnormality still present Electronically Signed On 04-08-2024 14:56:11 CDT by Sebastian Charlton M.D.
[2024-04-08] VITALS (21 sets, daily range): BP systolic 92–118; BP diastolic 58–80; PULSE 71–82; RESP 19–20; TEMP 36.3–36.9; O2SAT 90–95
[2024-04-08 00:24] LABS: Troponin I 0.029 ng/mL (0.000-0.034)
[2024-04-08 05:57] LABS: Basophils Absolute Auto 0.1 K/mm3 (0.0-0.1); Basophils Percent Auto 0.6 % (0.2-1.2); Eosinophils Absolute Auto 0.2 K/mm3 (0-0.3); Eosinophils Percent Auto 1.2 % (0-4.4); Hematocrit 28.4 % (42.0-52.0); Hemoglobin 8.8 g/dL (14.0-18.0); Immature Granulocyte Absolute 0.08 K/mm3 (0.00-0.031); Immature Granulocyte Percent A 0.6 % (0-0.5); Lymphocytes Absolute Auto 1.15 K/mm3 (0.9-3.2); Mean Corpuscular Hemoglobin 28.2 pg (26-34); Mean Platelet Volume 10.4 fl (7.4-10.4); Monocytes Absolute Auto 1.4 K/mm3 (0.1-0.6); Monocytes Percent Auto 11.1 % (2.6-8.5); Neutrophils Absolute Auto 9.9 K/mm3 (1.3-6.7); Neutrophils Percent Auto 77.5 % (45.5-73.1); Platelet Count Result 392 k/mm3 (150-375); Red Blood Count 3.12 M/mm3 (4.6-6.20); Red Cell Distribution Width 13.5 % (11.5-14.5); White Blood Count 12.7 K/mm3 (4.5-10.0)
[2024-04-08 06:11] LABS: Alanine Aminotransferase 16 U/L (6-50); Albumin Level 3.6 g/dL (3.5-5.1); Alkaline Phosphatase 80 U/L (38-126); Anion Gap 15 mmol/L (4-12); Aspartate Amino Transferase 16 U/L (17-59); Bilirubin,Total 0.6 mg/dL (0.2-1.3); Blood Urea Nitrogen 48 mg/dL (9-20); Calcium 8.8 mg/dL (8.4-10.2); Carbon Dioxide 31 mmol/L (22-30); Chloride 87 mmol/L (98-107); Estimated CRCL calculation 10 ml/min; Estimated Glomerular Filt Rate 6; Glucose 186 mg/dL (65-110); Potassium 4.5 mmol/L (3.4-5.0); Sodium 133 mmol/L (137-145)
[2024-04-08 07:14] LABS: Procalcitonin 9.8 ng/mL
[2024-04-08] MEDS: IPRATROPIUM 0.5 MG/ALBUTEROL SULFATE 2.5 MG AMPUL.NEB 3 ML INHALATION ×3 (07:30→21:03)
[2024-04-08] MEDS: amLODIPine BESYLATE 10 MG TABLET PO (08:18)
[2024-04-08] MEDS: HYDROcodone/acetaminophen (*CRX) 5-325 MG TABLET 1 TAB PO ×2 (08:18→20:32)
[2024-04-08] MEDS: carvediloL 12.5 MG TABLET PO ×2 (08:18→20:31)
[2024-04-08] MEDS: NIFEdipine 30 MG TAB.ER.24 60 MG PO (08:19)
[2024-04-08] MEDS: CALCIUM ACETATE 667 MG TABLET PO ×3 (08:19→17:15)
[2024-04-08] MEDS: ATORVASTATIN 40 MG TABLET PO (08:19)
[2024-04-08] MEDS: guaiFENesin 12 HR 600 MG TABCR PO ×2 (08:19→20:32)
[2024-04-08] MEDS: AZITHROMYCIN 250 MG TABLET 500 MG PO (08:19)
[2024-04-08 08:44] LABS: Glucose Point of Care 146 mg/dl (65-105)
--- NOTE | 2024-04-08 09:13 | PM.IMPN ---
Progress Note: A&P Assessment and Plan (1) Pneumonia: Code(s): J18.9 - Pneumonia, unspecified organism Status: Acute Assessment and Plan: Patient presented with left upper quadrant abdominal pain and found left upper and lower lobe pneumonia. white blood cell count elevated and patient requiring oxygen at 4 L cough and congestion the last few days, cough is nonproductive broadened coverage with cefepime since patient gets dialysis Sputum culture ordered, blood cultures no growth to date MRSA PCR swab negative Incentive spirometry, Pep therapy DuoNebs q.6, Mucinex b.i.d. Wean oxygen as tolerated. Still requiring oxygen today. Suspect he may need o2 at d/c. Strep pneumo, legionella urine antigens sent Extended respiratory pathogen panel added Sputum for gram stain, c&s, AFB and fungal studies Pulmonology has been consulted recs are appreciated (2) End-stage renal disease on hemodialysis: Code(s): N18.6 - End stage renal disease; Z99.2 - Dependence on renal dialysis Status: Acute Assessment and Plan: Thursday dialysis schedule Nephrology consulted. (3) JARAD on CPAP: Code(s): G47.33 - Obstructive sleep apnea (adult) (pediatric); Z99.89 - Dependence on other enabling machines and devices Status: Acute Assessment and Plan: AutoPAP available, if respiratory symptoms worsen would utilize BiPAP (4) Hypertension: Code(s): I10 - Essential (primary) hypertension Status: Chronic Assessment and Plan: blood pressure reviewed on 04/08/2024 low blood pressure overnight Reviewed nephrology notes from last admission and Dr Burns had stopped his amlodipine and placed on nifedipine. Medications were reviewed and he had been started on two calcium channel blockers at admission. Stopping amlodipine now Monitor blood pressure (5) Diastolic dysfunction: Code(s): I51.89 - Other ill-defined heart diseases Status: Acute Assessment and Plan: History diastolic dysfunction grade 1, recent echocardiogram completed last month, concurrent pericardial effusion noted (6) Hyperglycemia due to diabetes mellitus: Code(s): E11.65 - Type 2 diabetes mellitus with hyperglycemia Status: Chronic Assessment and Plan: insulin-dependent type 2 diabetes, continuous glucose monitor in place, ACHS fingerstick glucose with high-dose sliding scale ordered, hemoglobin A1c 9.3% fasting blood glucose 186 Will add Lantus at 0.15 units per kg Plan DVT prophylaxis: Heparin GI prophylaxis: NA Glycemic control: High-dose sliding scale insulin, a.c. HS Accu-Cheks, hypoglycemia protocol, Lantus Code Status: Full code Disposition: Patient presented from dialysis center with complaints of left upper quadrant abdominal pain worsening with deep inspiration. He was found to have pneumonia on CT imaging with a leukocytosis and positive procalcitonin. He also had a new oxygen requirement of 4 L. He was being admitted for IV antibiotics, further workup of pneumonia, medical management of his chronic conditions. Nephrology has been consulted for his dialysis. Pulmonology was consulted for pneumonia. Medication reconciliation obtained via the following: Nurse completed on admission The file time of this note does not necessarily represent the time the patient was seen. Advance Care Plan I have confirmed that the patient's Advanced Care Plan is present, code status is documented, or surrogate decision maker is listed in patient medical record.: Yes Medication Reconciliation I have utilized all available resources to obtain, update and review the patients current medications (includes all prescriptions, OTC, herbals, cannabis, an
[2024-04-08] MEDS: INSULIN ASPART (*BKC) 100 UNITS/ML SUB-Q (12:05)
[2024-04-08 12:09] LABS: Glucose Point of Care 215 mg/dl (65-105)
--- NOTE | 2024-04-08 16:56 | PM.PNPUL ---
Progress Note: A&P Assessment and Plan (1) Pneumonia: Code(s): J18.9 - Pneumonia, unspecified organism Status: Acute Assessment and Plan: He meets criteria for pneumonia with an elevated WBC, increasing procalcitonin, need for O2, shortness of breath and pulmonary infiltrates on chest CT that can be considered consistent with pneumonia. These are seen in the Left upper and lower lobes with a small left pleural effusion. He has no sputum to analyze, nothing to check a Gram stain or culture. Initial serology is negative for Influenza A/B, RSV, SARS-CoV-2; MRSA nasal swab is negative. He is treated with oral azithromycin and IV Cefepime adjusted for renal failure. This covers the main community acquired pathogens. He is diabetic, so that is a risk factor for having organisms more complicated than the usual community acquired pathogens. He has not been admitted recently, however has contact with the medical system with dialysis T/. He is not a smoker, no heavy alcohol. 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 We will continue these antibiotics, steroids, bronchodilators, incentive spirometry. Extended respiratory pathogen, sputum for Gram stain, c&s, AFB and fungal studies, and urine antigens for Strep pneumoniae and Legionella are pending. Procalictonin is higher 9.8 with lower WBC 12.7. (2) JARAD on CPAP: Code(s): G47.33 - Obstructive sleep apnea (adult) (pediatric); Z99.89 - Dependence on other enabling machines and devices Status: Acute Assessment and Plan: He has JARAD, uses PAP at home, is compliant, and does not have complaints at this time. He has hospital APAP to use while he is here. Plan Sputum Gram stain collected, results pending. Extended respiratory pathogen panel is pending. Sputum for AFB and fungal studies nor complete yet. Urine antigens - sent. results pending. Continue current treatment with IV Cefepime, metronidazole, and oral azithromycin. Blood cultures are negative. He has had 2-3 milder cases of pneumonia in the last few years, treated out patient. He has no obvious problems with swallowing, no alcohol; he does not appear to aspirate. He is asking about being able to go home, and may be able to in 1-2 more days. His procalcitonin is going up gradually, today 9.8, with decrease in WBC 12.7. Speech Evaluation if he does not recover easily. He is 63, not that old, no strokes. Possible silent aspiration? Subjective Date/time seen: 04/08/24 16:56 Interval history: 04/08/24: hospital day #3 left sided pneumonia requiring O2, on Cefepime, metronidazole and oral azithromycin. Afebrile. On 4 L/min, saturation 92-93%. Coughing today without brown sputum. Asking about going home. His procalcitonin is up 9.8, a little concerning but everything else appears better, wbc down 12.7. He will get dialysis tomorrow. 04/07/2024; follow up pulmonary visit; O2 is lower 2 L/min saturation is 90-91%, yesterday was on 4 L/min. He had a dialysis treatment today, now moved from IMU to Room 341. He is sitting in a chair. Cough is productive now, sputum is thick and light brown. He had pneumonia 2-3 times in the last few years, never required hospital admission. Started HD Jul 2023. HISTORY = = = = = = = = = = = 04/06/2024, new pulmonary consult; Rolando Ashley is 63 years old, came to the emergency department 04/05 with increasing cough and congestion, main reason for visit was left sided abdominal pain which caused him to leave dialysis early. Chest x-ray show a worsening left pleural effusion and opacities in the left mid and lower lung zones. He has an enlarged cardiac silhouette. He had CT scans of chest/abd/pelvis = small left pleural effusion, moderate pericardial effusion with gallstones and gallbladder distension. He was hypoxic an
[2024-04-08] MEDS: CEFEPIME 1 GM/NS 50 ML 1 GM/50 ML BAG IVPB (17:16)
[2024-04-08 18:03] LABS: Glucose Point of Care 192 mg/dl (65-105)
[2024-04-08] MEDS: INSULIN GLARGINE (*BKC) 100 UNITS/ML 16 UNITS SUB-Q (20:31)
[2024-04-08] MEDS: AMITRIPTYLINE HCL 25 MG TABLET 50 MG PO (20:32)
[2024-04-08 20:37] LABS: Glucose Point of Care 263 mg/dl (65-105)
[2024-04-09] VITALS (36 sets, daily range): BP systolic 100–145; BP diastolic 51–80; PULSE 70–88; RESP 16–22; TEMP 36.5–37.1; O2SAT 89–97
[2024-04-09] MEDS: IPRATROPIUM 0.5 MG/ALBUTEROL SULFATE 2.5 MG AMPUL.NEB 3 ML INHALATION ×3 (01:30→19:53)
--- NOTE | 2024-04-09 03:25 | PC.NURSE ---
Patient bipap removed per request. Placed back on O2 @ 4L NC. Breathing is currently non labored with O2 saturation of 93%.
[2024-04-09 05:34] LABS: Basophils Absolute Auto 0.1 K/mm3 (0.0-0.1); Basophils Percent Auto 0.4 % (0.2-1.2); Eosinophils Absolute Auto 0.4 K/mm3 (0-0.3); Eosinophils Percent Auto 2.8 % (0-4.4); Hematocrit 28.4 % (42.0-52.0); Immature Granulocyte Percent A 0.7 % (0-0.5); Lymphocytes Absolute Auto 0.78 K/mm3 (0.9-3.2); Lymphocytes Percent Auto 5.7 % (18.3-44.2); Mean Corpuscular HGB Conc 31.7 g/dl (32-36); Mean Corpuscular Hemoglobin 28.6 pg (26-34); Mean Corpuscular Volume 90.2 fl (80-100); Mean Platelet Volume 10.5 fl (7.4-10.4); Monocytes Absolute Auto 1.5 K/mm3 (0.1-0.6); Neutrophils Absolute Auto 10.9 K/mm3 (1.3-6.7); Neutrophils Percent Auto 79.4 % (45.5-73.1); Platelet Count Result 423 k/mm3 (150-375); Red Blood Count 3.15 M/mm3 (4.6-6.20); Red Cell Distribution Width 13.8 % (11.5-14.5); White Blood Count 13.7 K/mm3 (4.5-10.0)
[2024-04-09 05:39] LABS: Alanine Aminotransferase 16 U/L (6-50); Albumin Level 3.8 g/dL (3.5-5.1); Alkaline Phosphatase 100 U/L (38-126); Anion Gap 19 mmol/L (4-12); Aspartate Amino Transferase 19 U/L (17-59); Bilirubin,Total 0.6 mg/dL (0.2-1.3); Blood Urea Nitrogen 64 mg/dL (9-20); Calcium 9.2 mg/dL (8.4-10.2); Carbon Dioxide 26 mmol/L (22-30); Chloride 85 mmol/L (98-107); Estimated CRCL calculation 8 ml/min; Estimated Glomerular Filt Rate 5; Glucose 178 mg/dL (65-110); Magnesium 2.2 mg/dL (1.6-2.3); Phosphorus 8.7 mg/dL (2.5-4.5); Sodium 130 mmol/L (137-145)
[2024-04-09] MEDS: INSULIN ASPART (*BKC) 100 UNITS/ML SUB-Q ×3 (08:00→20:42)
[2024-04-09 08:02] LABS: Glucose Point of Care 248 mg/dl (65-105)
--- NOTE | 2024-04-09 08:18 | PC.NURSE ---
Patient off of unit to dialysis
[2024-04-09] MEDS: EPOETIN ALFA-EPBX 10,000 UNITS/ML VIAL 10000 UNITS IV PUSH (10:59)
--- NOTE | 2024-04-09 13:23 | PM.IMPN ---
Progress Note: A&P Assessment and Plan (1) Pneumonia: Code(s): J18.9 - Pneumonia, unspecified organism Status: Acute Assessment and Plan: Patient presented with left upper quadrant abdominal pain and found left upper and lower lobe pneumonia. white blood cell count elevated and patient requiring oxygen at 2 L cough and congestion the last few days, cough is nonproductive broadened coverage with cefepime since patient gets dialysis Sputum culture ordered, blood cultures no growth to date MRSA PCR swab negative Incentive spirometry, Pep therapy DuoNebs q.6, Mucinex b.i.d. Wean oxygen as tolerated. Still requiring oxygen today. Suspect he may need o2 at d/c. Strep pneumo, legionella urine antigens sent Extended respiratory pathogen panel added Sputum for gram stain, c&s, AFB and fungal studies Pulmonology has been consulted recs are appreciated (2) End-stage renal disease on hemodialysis: Code(s): N18.6 - End stage renal disease; Z99.2 - Dependence on renal dialysis Status: Acute Assessment and Plan: Thursday dialysis schedule Nephrology consulted. (3) JARAD on CPAP: Code(s): G47.33 - Obstructive sleep apnea (adult) (pediatric); Z99.89 - Dependence on other enabling machines and devices Status: Acute Assessment and Plan: AutoPAP available, if respiratory symptoms worsen would utilize BiPAP (4) Hypertension: Code(s): I10 - Essential (primary) hypertension Status: Chronic Assessment and Plan: blood pressure reviewed on 04/08/2024 low blood pressure overnight Reviewed nephrology notes from last admission and Dr Burns had stopped his amlodipine and placed on nifedipine. Medications were reviewed and he had been started on two calcium channel blockers at admission. Stopping amlodipine now Blood pressures have been reviewed and have improved. (5) Diastolic dysfunction: Code(s): I51.89 - Other ill-defined heart diseases Status: Acute Assessment and Plan: History diastolic dysfunction grade 1, recent echocardiogram completed last month, concurrent pericardial effusion noted (6) Hyperglycemia due to diabetes mellitus: Code(s): E11.65 - Type 2 diabetes mellitus with hyperglycemia Status: Chronic Assessment and Plan: insulin-dependent type 2 diabetes, continuous glucose monitor in place, ACHS fingerstick glucose with high-dose sliding scale ordered, hemoglobin A1c 9.3% fasting blood glucose 186 Will add Lantus at 0.15 units per kg Plan DVT prophylaxis: Heparin GI prophylaxis: NA Glycemic control: High-dose sliding scale insulin, a.c. HS Accu-Cheks, hypoglycemia protocol, Lantus Code Status: Full code Disposition: Patient presented from dialysis center with complaints of left upper quadrant abdominal pain worsening with deep inspiration. He was found to have pneumonia on CT imaging with a leukocytosis and positive procalcitonin. He also had a new oxygen requirement of 4 L. He was being admitted for IV antibiotics, further workup of pneumonia, medical management of his chronic conditions. Nephrology has been consulted for his dialysis. Pulmonology was consulted for pneumonia. Medication reconciliation obtained via the following: Nurse completed on admission The file time of this note does not necessarily represent the time the patient was seen. Advance Care Plan I have confirmed that the patient's Advanced Care Plan is present, code status is documented, or surrogate decision maker is listed in patient medical record.: Yes Medication Reconciliation I have utilized all available resources to obtain, update and review the patients current medications (includes all prescripti
[2024-04-09 17:12] LABS: Glucose Point of Care 266 mg/dl (65-105)
[2024-04-09] MEDS: CALCIUM ACETATE 667 MG TABLET PO (18:02)
[2024-04-09] MEDS: CEFEPIME 1 GM/NS 50 ML 1 GM/50 ML BAG IVPB (18:02)
[2024-04-09] MEDS: guaiFENesin 12 HR 600 MG TABCR PO (20:21)
[2024-04-09] MEDS: AMITRIPTYLINE HCL 25 MG TABLET 50 MG PO (20:21)
[2024-04-09] MEDS: HYDROcodone/acetaminophen (*CRX) 5-325 MG TABLET 1 TAB PO (20:21)
[2024-04-09] MEDS: carvediloL 12.5 MG TABLET PO (20:21)
[2024-04-09] MEDS: INSULIN GLARGINE (*BKC) 100 UNITS/ML 16 UNITS SUB-Q (20:23)
[2024-04-09 20:43] LABS: Glucose Point of Care 309 mg/dl (65-105)
[2024-04-10] VITALS (22 sets, daily range): BP systolic 117–133; BP diastolic 70–82; PULSE 70–93; RESP 18–20; TEMP 36.5–37.1; O2SAT 92–98
[2024-04-10] MEDS: IPRATROPIUM 0.5 MG/ALBUTEROL SULFATE 2.5 MG AMPUL.NEB 3 ML INHALATION ×4 (02:39→19:40)
[2024-04-10 05:29] LABS: Basophils Absolute Auto 0.1 K/mm3 (0.0-0.1); Basophils Percent Auto 0.6 % (0.2-1.2); Eosinophils Absolute Auto 0.4 K/mm3 (0-0.3); Eosinophils Percent Auto 3.4 % (0-4.4); Hematocrit 28.1 % (42.0-52.0); Hemoglobin 8.8 g/dL (14.0-18.0); Immature Granulocyte Absolute 0.08 K/mm3 (0.00-0.031); Immature Granulocyte Percent A 0.7 % (0-0.5); Lymphocytes Absolute Auto 1.18 K/mm3 (0.9-3.2); Mean Corpuscular HGB Conc 31.3 g/dl (32-36); Mean Corpuscular Hemoglobin 28.3 pg (26-34); Mean Corpuscular Volume 90.4 fl (80-100); Mean Platelet Volume 10.1 fl (7.4-10.4); Monocytes Absolute Auto 1.2 K/mm3 (0.1-0.6); Monocytes Percent Auto 9.8 % (2.6-8.5); Neutrophils Percent Auto 75.5 % (45.5-73.1); Platelet Count Result 412 k/mm3 (150-375); Red Blood Count 3.11 M/mm3 (4.6-6.20); Red Cell Distribution Width 13.8 % (11.5-14.5); White Blood Count 11.8 K/mm3 (4.5-10.0)
[2024-04-10 05:42] LABS: Alanine Aminotransferase 17 U/L (6-50); Albumin Level 3.5 g/dL (3.5-5.1); Alkaline Phosphatase 105 U/L (38-126); Anion Gap 17 mmol/L (4-12); Aspartate Amino Transferase 32 U/L (17-59); Bilirubin,Total 0.7 mg/dL (0.2-1.3); Blood Urea Nitrogen 46 mg/dL (9-20); Calcium 9.1 mg/dL (8.4-10.2); Carbon Dioxide 26 mmol/L (22-30); Chloride 92 mmol/L (98-107); Estimated CRCL calculation 11 ml/min; Estimated Glomerular Filt Rate 7; Glucose 144 mg/dL (65-110); Magnesium 2.1 mg/dL (1.6-2.3); Phosphorus 6.4 mg/dL (2.5-4.5); Potassium 4.5 mmol/L (3.4-5.0); Sodium 135 mmol/L (137-145)
[2024-04-10 08:36] LABS: Glucose Point of Care 131 mg/dl (65-105)
[2024-04-10] MEDS: carvediloL 12.5 MG TABLET PO ×2 (12:08→21:13)
[2024-04-10] MEDS: ATORVASTATIN 40 MG TABLET PO (12:09)
[2024-04-10] MEDS: HYDROcodone/acetaminophen (*CRX) 5-325 MG TABLET 1 TAB PO ×2 (12:09→21:13)
[2024-04-10] MEDS: guaiFENesin 12 HR 600 MG TABCR PO ×2 (12:09→21:12)
[2024-04-10] MEDS: NIFEdipine 30 MG TAB.ER.24 60 MG PO (12:09)
[2024-04-10] MEDS: CALCIUM ACETATE 667 MG TABLET PO ×2 (12:09→16:51)
[2024-04-10] MEDS: INSULIN ASPART (*BKC) 100 UNITS/ML SUB-Q ×3 (12:13→21:13)
[2024-04-10 12:19] LABS: Glucose Point of Care 249 mg/dl (65-105)
--- NOTE | 2024-04-10 13:14 | P.PNIM_ITS ---
Progress Note: A&P Assessment and Plan (1) Pneumonia: Code(s): J18.9 - Pneumonia, unspecified organism Status: Acute Assessment and Plan: Patient presented with left upper quadrant abdominal pain and found left upper and lower lobe pneumonia. * white blood cell count elevated and patient requiring oxygen at 2 L * cough and congestion the last few days, cough is nonproductive * broadened coverage with cefepime since patient gets dialysis * Sputum culture ordered, blood cultures no growth to date * MRSA PCR swab negative * Incentive spirometry, Pep therapy * DuoNebs q.6, Mucinex b.i.d. * Wean oxygen as tolerated. Still requiring oxygen today. Suspect he may need o2 at d/c. * Strep pneumo, legionella urine antigens sent * Extended respiratory pathogen panel added * Sputum for gram stain, c&s, AFB and fungal studies * Pulmonology has been consulted recs are appreciated (2) End-stage renal disease on hemodialysis: Code(s): N18.6 - End stage renal disease; Z99.2 - Dependence on renal dialysis Status: Acute Assessment and Plan: * Thursday dialysis schedule * Nephrology consulted. (3) JARAD on CPAP: Code(s): G47.33 - Obstructive sleep apnea (adult) (pediatric); Z99.89 - Dependence on other enabling machines and devices Status: Acute Assessment and Plan: AutoPAP available, if respiratory symptoms worsen would utilize BiPAP (4) Hypertension: Code(s): I10 - Essential (primary) hypertension Status: Chronic Assessment and Plan: blood pressure reviewed on 04/08/2024 * low blood pressure overnight * Reviewed nephrology notes from last admission and Dr Burns had stopped his amlodipine and placed on nifedipine. Medications were reviewed and he had been started on two calcium channel blockers at admission. * Stopping amlodipine now * Blood pressures have been reviewed and have improved. (5) Diastolic dysfunction: Code(s): I51.89 - Other ill-defined heart diseases Status: Acute Assessment and Plan: History diastolic dysfunction grade 1, recent echocardiogram completed last month, concurrent pericardial effusion noted (6) Hyperglycemia due to diabetes mellitus: Code(s): E11.65 - Type 2 diabetes mellitus with hyperglycemia Status: Chronic Assessment and Plan: insulin-dependent type 2 diabetes, continuous glucose monitor in place, ACHS fingerstick glucose with high-dose sliding scale ordered, hemoglobin A1c 9.3% * fasting blood glucose 186 * Will add Lantus at 0.15 units per kg Plan DVT prophylaxis: Heparin GI prophylaxis: NA Glycemic control: High-dose sliding scale insulin, a.c. HS Accu-Cheks, hypoglycemia protocol, Lantus Code Status: Full code Disposition: Patient presented from dialysis center with complaints of left upper quadrant abdominal pain worsening with deep inspiration. He was found to have pneumonia on CT imaging with a leukocytosis and positive procalcitonin. He also had a new oxygen requirement of 4 L. He was being admitted for IV antibiotics, further workup of pneumonia, medical management of his chronic conditions. Nephrology has been consulted for his dialysis. Pulmonology was consulted for pneumonia. Medication reconciliation obtained via the following: Nurse completed on admission The file time of this note does not necessarily represent the time the patient was seen.
[2024-04-10] MEDS: CEFEPIME 1 GM/NS 50 ML 1 GM/50 ML BAG IVPB (16:51)
[2024-04-10 17:06] LABS: Glucose Point of Care 240 mg/dl (65-105)
[2024-04-10 20:10] LABS: Glucose Point of Care 249 mg/dl (65-105)
[2024-04-10] MEDS: AMITRIPTYLINE HCL 25 MG TABLET 50 MG PO (21:13)
[2024-04-10] MEDS: INSULIN GLARGINE (*BKC) 100 UNITS/ML 16 UNITS SUB-Q (21:13)
[2024-04-11] VITALS (26 sets, daily range): BP systolic 108–131; BP diastolic 60–71; PULSE 66–80; RESP 13–28; TEMP 36–36.5; O2SAT 87–96
[2024-04-11 05:35] LABS: Basophils Absolute Auto 0.1 K/mm3 (0.0-0.1); Basophils Percent Auto 0.6 % (0.2-1.2); Eosinophils Absolute Auto 0.5 K/mm3 (0-0.3); Eosinophils Percent Auto 3.9 % (0-4.4); Hematocrit 28.1 % (42.0-52.0); Hemoglobin 8.6 g/dL (14.0-18.0); Immature Granulocyte Absolute 0.08 K/mm3 (0.00-0.031); Immature Granulocyte Percent A 0.7 % (0-0.5); Lymphocytes Absolute Auto 1.31 K/mm3 (0.9-3.2); Lymphocytes Percent Auto 11.4 % (18.3-44.2); Mean Corpuscular HGB Conc 30.6 g/dl (32-36); Mean Corpuscular Volume 91.5 fl (80-100); Mean Platelet Volume 9.8 fl (7.4-10.4); Monocytes Absolute Auto 1.2 K/mm3 (0.1-0.6); Monocytes Percent Auto 10.6 % (2.6-8.5); Neutrophils Absolute Auto 8.4 K/mm3 (1.3-6.7); Neutrophils Percent Auto 72.8 % (45.5-73.1); Platelet Count Result 408 k/mm3 (150-375); Red Blood Count 3.07 M/mm3 (4.6-6.20); Red Cell Distribution Width 14.1 % (11.5-14.5); White Blood Count 11.5 K/mm3 (4.5-10.0)
[2024-04-11 05:52] LABS: Alanine Aminotransferase 20 U/L (6-50); Albumin Level 3.3 g/dL (3.5-5.1); Alkaline Phosphatase 96 U/L (38-126); Anion Gap 15 mmol/L (4-12); Aspartate Amino Transferase 29 U/L (17-59); Bilirubin,Total 0.8 mg/dL (0.2-1.3); Blood Urea Nitrogen 63 mg/dL (9-20); Calcium 8.8 mg/dL (8.4-10.2); Carbon Dioxide 24 mmol/L (22-30); Chloride 92 mmol/L (98-107); Estimated CRCL calculation 9 ml/min; Estimated Glomerular Filt Rate 6; Glucose 145 mg/dL (65-110); Magnesium 2.2 mg/dL (1.6-2.3); Phosphorus 7.7 mg/dL (2.5-4.5); Potassium 4.6 mmol/L (3.4-5.0); Sodium 131 mmol/L (137-145)
[2024-04-11] MEDS: IPRATROPIUM 0.5 MG/ALBUTEROL SULFATE 2.5 MG AMPUL.NEB 3 ML INHALATION ×3 (07:40→20:06)
[2024-04-11 08:02] LABS: Glucose Point of Care 131 mg/dl (65-105)
[2024-04-11] MEDS: ATORVASTATIN 40 MG TABLET PO (09:08)
[2024-04-11] MEDS: HYDROcodone/acetaminophen (*CRX) 5-325 MG TABLET 1 TAB PO ×2 (09:08→21:01)
[2024-04-11] MEDS: NIFEdipine 30 MG TAB.ER.24 60 MG PO (09:08)
[2024-04-11] MEDS: guaiFENesin 12 HR 600 MG TABCR PO ×2 (09:08→21:01)
[2024-04-11] MEDS: carvediloL 12.5 MG TABLET PO ×2 (09:08→21:01)
[2024-04-11] MEDS: CALCIUM ACETATE 667 MG TABLET PO ×2 (09:08→17:24)
--- NOTE | 2024-04-11 11:45 | PM.PNNEP ---
Progress Note: A&P Assessment and Plan (1) End stage renal disease: Code(s): N18.6 - End stage renal disease Status: Chronic Assessment and Plan: HD tomorrow continue T/T/S dialysis schedule while hospitalized follow electrolytes, volume status, and clearance (2) Pneumonia: Code(s): J18.9 - Pneumonia, unspecified organism Status: Acute Assessment and Plan: as noted by imaging on admission complicated by hypoxia, cough, and congestion follow culture data - negative to date on antibiotics supplemental oxygen - wean as tolerated suspected etiology of left sided chest/upper abdominal pain (3) Hypertension: Code(s): I10 - Essential (primary) hypertension Status: Chronic Assessment and Plan: reasonable control at this time continue home medications follw trend of hemodynamics (4) Diastolic heart failure: Code(s): I50.30 - Unspecified diastolic (congestive) heart failure Status: Chronic Assessment and Plan: as noted by recent echo on last hospitalization volume status seems relatively stable fluid removal with dialysis to maintain euvolemia (5) Pericardial effusion: Code(s): I31.39 - Other pericardial effusion (noninflammatory) Status: Acute Assessment and Plan: as noted on previous hospitalization and by recent repeat imaging doubt uremic since he is getting good clearance with dialysis continue to monitor (6) Anemia: Code(s): D64.9 - Anemia, unspecified Status: Chronic Assessment and Plan: related to ESRD and likely worsened by acute illness Epogen with HD follow trend of H/H (7) Hyperglycemia due to diabetes mellitus: Code(s): E11.65 - Type 2 diabetes mellitus with hyperglycemia Status: Chronic Assessment and Plan: follow accu-cheks glycemic control per hospitalists Will continue to follow. Subjective Date/time seen: 04/11/24 11:45 Interval history: Follow-up for end stage renal disease. Chart reviewed since last seen -- appears to be doing better in general; no apparent distress noted at the time of my visit; hoping for discharge soon; no issues/events overnight or earlier this morning. Exam Narrative: General: WD/WN male in NAD Heart: normal S1 and S2; no rub Lungs: diminished at bases Abdomen: soft, nontender, nondistended, positive bowel sounds Extremities: no cyanosis or clubbing; no edema Skin: warm and intact Objective Data Vital Signs Vital Signs: Vital Signs Temp Pulse Resp BP Pulse Ox O2 Del Method O2 Flow Rate 04/11/24 08:00 74 04/11/24 09:08 96 Nasal Cannula 1 04/11/24 09:05 118/60 96 04/11/24 09:08 72 04/11/24 07:50 74 18 04/11/24 07:40 72 18 04/11/24 07:40 72 18 91 Nasal Cannula 2 04/11/24 05:30 69 17 91 CPAP 04/11/24 05:20 96.8 F L 68 18 108/70 93 04/11/24 04:00 71 04/11/24 00:00 77 04/10/24 21:15 96 CPAP 04/10/24 21:15 76 04/10/24 21:13 76 04/10/24 20:29 97.9 F 76 20 133/70 96 04/10/24 19:50 92 CPAP 4 04/10/24 19:49 75 20 04/10/24 19:41 76 20 04/10/24 19:41 76 20 92 CPAP 04/10/24 16:00 70 04/10/24 14:00 97.7 F 93 20 117/72 93 04/10/24 14:27 71 20 04/10/24 14:18 70 20 Intake/Output Intake/Output: Intake & Output 04/08/24 04/09/24 04/10/24 04/11/24 23:59 23:59 23:59 23:59 Intake Total 0285 867 2826 580 Output Total 2508 Balance 1470 -1578 1950 580 Meds/Results Medications: Active Medications Generic Name Dose Route Start Last Admin Trade Name Alisia PRN Reason Stop Dose Admin Acetaminophen 650 mg 04/05/24 18:52 Acetaminophen 325 Mg Tablet PO Q6H PRN Mild Pain (1-3) or Fever Hydrocodone Bitart/Acetaminophen 1 tab 04/05/24 21:00 04/11/24 09:08 Hydrocodone/Acetamino
--- NOTE | 2024-04-11 11:45 | P.PNNP_ITS ---
Progress Note: A&P Assessment and Plan (1) End stage renal disease: Code(s): N18.6 - End stage renal disease Status: Chronic Assessment and Plan: * HD tomorrow * continue T/T/S dialysis schedule while hospitalized * follow electrolytes, volume status, and clearance (2) Pneumonia: Code(s): J18.9 - Pneumonia, unspecified organism Status: Acute Assessment and Plan: * as noted by imaging on admission * complicated by hypoxia, cough, and congestion * follow culture data - negative to date * on antibiotics * supplemental oxygen - wean as tolerated * suspected etiology of left sided chest/upper abdominal pain (3) Hypertension: Code(s): I10 - Essential (primary) hypertension Status: Chronic Assessment and Plan: * reasonable control at this time * continue home medications * follw trend of hemodynamics (4) Diastolic heart failure: Code(s): I50.30 - Unspecified diastolic (congestive) heart failure Status: Chronic Assessment and Plan: * as noted by recent echo on last hospitalization * volume status seems relatively stable * fluid removal with dialysis to maintain euvolemia (5) Pericardial effusion: Code(s): I31.39 - Other pericardial effusion (noninflammatory) Status: Acute Assessment and Plan: * as noted on previous hospitalization and by recent repeat imaging * doubt uremic since he is getting good clearance with dialysis * continue to monitor (6) Anemia: Code(s): D64.9 - Anemia, unspecified Status: Chronic Assessment and Plan: * related to ESRD and likely worsened by acute illness * Epogen with HD * follow trend of H/H (7) Hyperglycemia due to diabetes mellitus: Code(s): E11.65 - Type 2 diabetes mellitus with hyperglycemia Status: Chronic Assessment and Plan: * follow accu-cheks * glycemic control per hospitalists Will continue to follow. Subjective Date/time seen: 04/11/24 11:45 Interval history: Follow-up for end stage renal disease. Chart reviewed since last seen -- appears to be doing better in general; no apparent distress noted at the time of my visit; hoping for discharge soon; no issues/events overnight or earlier this morning. Exam Narrative: General: WD/WN male in NAD Heart: normal S1 and S2; no rub Lungs: diminished at bases Abdomen: soft, nontender, nondistended, positive bowel sounds Extremities: no cyanosis or clubbing; no edema Skin: warm and intact Objective Data Vital Signs Vital Signs: Vital Signs Temp Pulse Resp BP Pulse Ox O2 Del Method O2 Flow Rate 04/11/24 08:00 74 04/11/24 09:08 96 Nasal Cannula 1 04/11/24 09:05 118/60 96 04/11/24 09:08 72 04/11/24 07:50 74 18 04/11/24 07:40 72 18 04/11/24 07:40 72 18 91 Nasal Cannula 2 04/11/24 05:30 69 17 91 CPAP 04/11/24 05:20 96.8 F L 68 18 108/70 93 04/11/24 04:00 71 04/11/24 00:00 77 04/10/24 21:15 96 CPAP 04/10/24 21:15 76 04/10/24 21:13 76 04/10/24 20:29 97.9 F 76 20 133/70 96 04/10/24 19:50 92 CPAP 4 04/10/24 19:49 75 20 04/10/24 19:41 76 20 08
[2024-04-11 12:07] LABS: Glucose Point of Care 136 mg/dl (65-105)
--- NOTE | 2024-04-11 13:05 | PM.PNPUL ---
Progress Note: A&P Assessment and Plan (1) Pneumonia: Code(s): J18.9 - Pneumonia, unspecified organism Status: Acute Assessment and Plan: He meets criteria for pneumonia with an elevated WBC, increasing procalcitonin, need for O2, shortness of breath and pulmonary infiltrates on chest CT that can be considered consistent with pneumonia. Initially, infiltrates were in the Left upper and lower lobes with a small left pleural effusion, now with increased left pleural effusion. He has no sputum to analyze, nothing to check a Gram stain or culture. Initial serology is negative for Influenza A/B, RSV, SARS-CoV-2; MRSA nasal swab is negative. He is treated with oral azithromycin and IV Cefepime adjusted for renal failure. This covers the main community acquired pathogens. He is diabetic, so that is a risk factor for having organisms more complicated than the usual community acquired pathogens. He has not been admitted recently, however has contact with the medical system with dialysis T/. He is not a smoker, no heavy alcohol. 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 He has increased left pleural effusion, will need thoracentesis. Continue current antibiotics, steroids, bronchodilators, incentive spirometry. Extended respiratory pathogen is negative. Urine antigens for Strep pneumoniae and Legionella are negative. Procalictonin is higher April 08 = 9.8 with lower WBC 11.5. (2) JARAD on CPAP: Code(s): G47.33 - Obstructive sleep apnea (adult) (pediatric); Z99.89 - Dependence on other enabling machines and devices Status: Acute Assessment and Plan: He has JARAD, uses PAP at home, is compliant, and does not have complaints at this time. He has hospital APAP to use while he is here.We will see what device he has been using at home. I am now aware that he does not like the device and has not been wearing it at home. Plan Feeling better, however CXR shows more effusion on the left side. Plans noted for thoracentesis tomorrow. So far, all his studies have been negative. Continue current treatment with IV Cefepime, metronidazole, and oral azithromycin. He has had 2-3 milder cases of pneumonia in the last few years, treated out patient. He has no obvious problems with swallowing, no alcohol; he does not appear to aspirate. Consider Speech Evaluation. Subjective Date/time seen: 04/11/24 13:05 Interval history: 04/11/24; was at [place] last month, and he does not tolerate the BiPAP that he was discharged home with in January; Respiratory Therapy could not locate the settings that he had at discharge. He had the device at the [facility]. His extended spectrum respiratory panel is negative, ABG today shows pH 7.45, pCO2 34.8, pO2 78.6, saturation 96% on 4 L oxygen. WBC 11.5, H/H = 8.6/28.1, platelets 408 k. CXR shows increased left pleural effusion. Na today is lower 129, BUN 80, creatinine 10.90. 04/08/24: hospital day #3 left sided pneumonia requiring O2, on Cefepime, metronidazole and oral azithromycin. Afebrile. On 4 L/min, saturation 92-93%. Coughing today without brown sputum. Asking about going home. His procalcitonin is up 9.8, a little concerning but everything else appears better, wbc down 12.7. He will get dialysis tomorrow. 04/07/2024; follow up pulmonary visit; O2 is lower 2 L/min saturation is 90-91%, yesterday was on 4 L/min. He had a dialysis treatment today, now moved from IMU to Room 341. He is sitting in a chair. Cough is productive now, sputum is thick and light brown. He had pneumonia 2-3 times in the last few years, never required hospital admission. Started HD Jul 2023. HISTORY = = = = = = = = = = = 04/06/2024, new pulmonary consult; Rolando Ashley is 63 years old, came to the emergency department 04/05 with in
--- NOTE | 2024-04-11 13:34 | PM.DS ---
DS: Admitting Diagnosis Discharge Date 04/11 Admitting Diagnosis pneumonia DS: Discharge Diagnosis Discharge Diagnosis (1) Acute hypoxic respiratory failure: Code(s): J96.01 - Acute respiratory failure with hypoxia Status: Acute Assessment and Plan: See plan 2 (2) Pneumonia: Code(s): J18.9 - Pneumonia, unspecified organism Status: Acute Assessment and Plan: Patient presented with left upper quadrant abdominal pain and found left upper and lower lobe pneumonia. white blood cell count elevated and patient requiring oxygen at 2 L cough and congestion the last few days, cough is nonproductive broadened coverage with cefepime since patient gets dialysis Sputum culture ordered, blood cultures no growth to date MRSA PCR swab negative Incentive spirometry, Pep therapy DuoNebs q.6, Mucinex b.i.d. Wean oxygen as tolerated. Still requiring oxygen today. Suspect he may need o2 at d/c. Strep pneumo, legionella urine antigens sent Extended respiratory pathogen panel added Sputum for gram stain, c&s, AFB and fungal studies Pulmonology has been consulted recs are appreciated (3) End-stage renal disease on hemodialysis: Code(s): N18.6 - End stage renal disease; Z99.2 - Dependence on renal dialysis Status: Acute Assessment and Plan: Thursday dialysis schedule Nephrology consulted. (4) JARAD on CPAP: Code(s): G47.33 - Obstructive sleep apnea (adult) (pediatric); Z99.89 - Dependence on other enabling machines and devices Status: Acute Assessment and Plan: AutoPAP available, if respiratory symptoms worsen would utilize BiPAP (5) Hypertension: Code(s): I10 - Essential (primary) hypertension Status: Chronic Assessment and Plan: blood pressure reviewed on 04/08/2024 low blood pressure overnight Reviewed nephrology notes from last admission and Dr Burns had stopped his amlodipine and placed on nifedipine. Medications were reviewed and he had been started on two calcium channel blockers at admission. Stopping amlodipine now Blood pressures have been reviewed and have improved. (6) Diastolic dysfunction: Code(s): I51.89 - Other ill-defined heart diseases Status: Acute Assessment and Plan: History diastolic dysfunction grade 1, recent echocardiogram completed last month, concurrent pericardial effusion noted (7) Hyperglycemia due to diabetes mellitus: Code(s): E11.65 - Type 2 diabetes mellitus with hyperglycemia Status: Chronic Assessment and Plan: insulin-dependent type 2 diabetes, continuous glucose monitor in place, ACHS fingerstick glucose with high-dose sliding scale ordered, hemoglobin A1c 9.3% fasting blood glucose 186 Will add Lantus at 0.15 units per kg Plan DVT prophylaxis: Heparin GI prophylaxis: NA Glycemic control: High-dose sliding scale insulin, a.c. HS Accu-Cheks, hypoglycemia protocol, Lantus Code Status: Full code Disposition: Patient presented from dialysis center with complaints of left upper quadrant abdominal pain worsening with deep inspiration. He was found to have pneumonia on CT imaging with a leukocytosis and positive procalcitonin. He also had a new oxygen requirement of 4 L. He was being admitted for IV antibiotics, further workup of pneumonia, medical management of his chronic conditions. Nephrology has been consulted for his dialysis. Pulmonology was consulted for pneumonia. Medication reconciliation obtained via the following: Nurse completed on admission The file time of this note does not necessarily represent the time the patient was seen. Advance Care Plan I have confirmed that the patient's Advanced Care Plan is pres
--- NOTE | 2024-04-11 14:06 | PC.NURSE ---
RN called PFT lab. No answer.
--- NOTE | 2024-04-11 14:35 | PC.NURSE ---
RN called PFT lab. No answer.
--- NOTE | 2024-04-11 14:45 | PC.NURSE ---
RN called [facility] to get ahold of PFT lab. She stated she would reach out to [facility] and see if she can do the home O2 evaluation.
--- NOTE | 2024-04-11 15:44 | PM.IMPN ---
Progress Note: A&P Assessment and Plan (1) Acute hypoxic respiratory failure: Code(s): J96.01 - Acute respiratory failure with hypoxia Status: Acute Assessment and Plan: Patient presented with left upper quadrant abdominal pain and found left upper and lower lobe pneumonia with small pleural effusion. white blood cell count elevated and patient requiring oxygen at 2 L cough and congestion the last few days, cough is nonproductive broadened coverage with cefepime since patient gets dialysis Sputum culture ordered, blood cultures no growth to date MRSA PCR swab negative Incentive spirometry, Pep therapy DuoNebs q.6, Mucinex b.i.d. Strep pneumo, legionella urine antigens sent Extended respiratory pathogen panel added Sputum for gram stain, c&s, AFB and fungal studies Pulmonology has been consulted recs are appreciated Wean oxygen as tolerated. Still requiring oxygen today. Suspect he may need o2 at d/c??? Repeated X-ray imaging today as we were planning on discharging him but it was concerning that he still was needing oxygen. His x-ray shows a worsening pleural effusion. I discussed with him staying for a thoracentesis. He is agreeable to this. Thoracentesis and fluid studies ordered. (2) Pneumonia: Code(s): J18.9 - Pneumonia, unspecified organism Status: Acute Assessment and Plan: see above (3) End-stage renal disease on hemodialysis: Code(s): N18.6 - End stage renal disease; Z99.2 - Dependence on renal dialysis Status: Acute Assessment and Plan: Thursday dialysis schedule Nephrology consulted. (4) JARAD on CPAP: Code(s): G47.33 - Obstructive sleep apnea (adult) (pediatric); Z99.89 - Dependence on other enabling machines and devices Status: Acute Assessment and Plan: AutoPAP available, if respiratory symptoms worsen would utilize BiPAP (5) Hypertension: Code(s): I10 - Essential (primary) hypertension Status: Chronic Assessment and Plan: blood pressure reviewed on 04/08/2024 low blood pressure overnight Reviewed nephrology notes from last admission and Dr Burns had stopped his amlodipine and placed on nifedipine. Medications were reviewed and he had been started on two calcium channel blockers at admission. Stopping amlodipine now Blood pressures have been reviewed and have improved. (6) Diastolic dysfunction: Code(s): I51.89 - Other ill-defined heart diseases Status: Acute Assessment and Plan: History diastolic dysfunction grade 1, recent echocardiogram completed last month, concurrent pericardial effusion noted (7) Hyperglycemia due to diabetes mellitus: Code(s): E11.65 - Type 2 diabetes mellitus with hyperglycemia Status: Chronic Assessment and Plan: insulin-dependent type 2 diabetes, continuous glucose monitor in place, ACHS fingerstick glucose with high-dose sliding scale ordered, hemoglobin A1c 9.3% fasting blood glucose 186 Will add Lantus at 0.15 units per kg Plan DVT prophylaxis: Heparin on hold for thoracentesis GI prophylaxis: NA Glycemic control: High-dose sliding scale insulin, a.c. HS Accu-Cheks, hypoglycemia protocol, Lantus Code Status: Full code Disposition: Patient presented from dialysis center with complaints of left upper quadrant abdominal pain worsening with deep inspiration. He was found to have pneumonia on CT imaging with a leukocytosis and positive procalcitonin. He also had a new oxygen requirement of 4 L. He was being admitted for IV antibiotics, further workup of pneumonia, medical management of his chronic conditions. Nephrology has been consulted for his dialysis. Pulmonology was consulted for pneumonia. Medication reconciliation obtained via the following: Nurse completed on admission The file time of this n
--- NOTE | 2024-04-11 15:46 | HOMEO2EVAL ---
Evaluation was performed at [facility] Home Oxygen Evaluation RC: Home Oxygen (O2) Evaluation Start: 04/11/24 13:32 Freq: ONCE Status: Active Protocol: RPE Activity Type Activity Date Activity User E-sign Co-sign Detail Recorded Client Recorded Date Recorded By Document 04/11/24 15:00 ANTONIA [email or web address] 04/11/24 15:46 ANTONIA Document 04/11/24 15:01 ANTONIA [email or web address] 04/11/24 15:46 ANTONIA Document 04/11/24 15:03 ANTONIA [email or web address] 04/11/24 15:46 ANTONIA Document 04/11/24 15:04 ANTONIA [email or web address] 04/11/24 15:46 ANTONIA Document 04/11/24 15:15 ANTONIA [email or web address] 04/11/24 15:46 ANTONIA 04/11/24 04/11/24 04/11/24 15:00 15:01 15:03 Home O2 Evaluation [Oxygen] -Test Phase Resting Resting Exercise -Oxygen Delivery Room Air Nasal Cannula Nasal Cannula -Oxygen Flow Rate (L/min) 1 1 [Pulse Oximetry] -Pulse Oximetry (90-100 %) 87 L 92 87 L [Comments] -Home Oxygen Evaluation Comments [Charges] -Evaluation Charges O2 Evaluation by Pulmonary 04/11/24 04/11/24 15:04 15:15 Home O2 Evaluation [Oxygen] -Test Phase Exercise Resting -Oxygen Delivery Nasal Cannula Nasal Cannula -Oxygen Flow Rate (L/min) 2 1 [Pulse Oximetry] -Pulse Oximetry (90-100 %) 90 92 [Comments] -Home Oxygen Evaluation Comments PT REQUIRES 1L RESTING, 2L ACTIVITY AND 4 L NOCTURNALLY [Charges] -Evaluation Charges
--- NOTE | 2024-04-11 16:10 | PCRCNOTE ---
NO DISCHARGE TODAY PER RN, HOME O2 SET UP CANCELED
[2024-04-11 17:01] LABS: Glucose Point of Care 225 mg/dl (65-105)
[2024-04-11] MEDS: INSULIN ASPART (*BKC) 100 UNITS/ML SUB-Q ×2 (17:24→21:01)
[2024-04-11] MEDS: CEFEPIME 1 GM/NS 50 ML 1 GM/50 ML BAG IVPB (17:24)
[2024-04-11 20:35] LABS: Glucose Point of Care 228 mg/dl (65-105)
[2024-04-11 20:43] LABS: Alveolar/Arterial O2 Gradient 137.7 mmHg; Base Excess ABG 0.2 mEq/l (+/-2.0); Fractional Inspired Oxygen 36 %; HCO3 ABG 23.8 mEq/l (22.0-26.0); Oxygen Content ABG 14.2 %vol (16.0-22.0); Oxygen Saturation ABG 96.2 % (95.0-100.0); Oxyhemoglobin 94.9 % THb (90.0-100.0); PCO2 ABG 34.8 mmHg (35.0-45.0); PO2 ABG 78.6 mmHg (80.0-100.0); PO2 FiO2 Ratio Arterial Blood 2.18 %; Total Hemoglobin 10.6 g/dL (12.0-18.0); pH ABG 7.453 (7.350-7.450)
[2024-04-11 20:45] LABS: Device NASAL CANNULA; Modified Allen's Test Pass; Site Drawn RIGHT RADIAL
[2024-04-11] MEDS: AMITRIPTYLINE HCL 25 MG TABLET 50 MG PO (21:01)
[2024-04-11] MEDS: traZODone HCL 50 MG TABLET PO (21:01)
[2024-04-11] MEDS: INSULIN GLARGINE (*BKC) 100 UNITS/ML 16 UNITS SUB-Q (21:01)
[2024-04-12] VITALS (39 sets, daily range): BP systolic 107–150; BP diastolic 55–88; PULSE 71–93; RESP 16–20; TEMP 36.1–37.1; O2SAT 91–98
[2024-04-12] MEDS: IPRATROPIUM 0.5 MG/ALBUTEROL SULFATE 2.5 MG AMPUL.NEB 3 ML INHALATION ×4 (01:24→21:23)
[2024-04-12] MEDS: SODIUM CHLOR 3% 15 ML NEB (RESPIRATORY THERAPY) 6 ML INHALATION (05:13)
--- NOTE | 2024-04-12 05:23 | PCRCNOTE ---
Patient unable to produce sputum sample 04/12/24
[2024-04-12 06:15] LABS: Basophils Absolute Auto 0.1 K/mm3 (0.0-0.1); Basophils Percent Auto 0.5 % (0.2-1.2); Eosinophils Absolute Auto 0.4 K/mm3 (0-0.3); Eosinophils Percent Auto 3.7 % (0-4.4); Hemoglobin 9.3 g/dL (14.0-18.0); Immature Granulocyte Absolute 0.09 K/mm3 (0.00-0.031); Immature Granulocyte Percent A 0.8 % (0-0.5); Lymphocytes Absolute Auto 1.07 K/mm3 (0.9-3.2); Lymphocytes Percent Auto 9.2 % (18.3-44.2); Mean Corpuscular HGB Conc 32.1 g/dl (32-36); Mean Corpuscular Hemoglobin 28.3 pg (26-34); Mean Corpuscular Volume 88.1 fl (80-100); Mean Platelet Volume 10.2 fl (7.4-10.4); Monocytes Absolute Auto 1.2 K/mm3 (0.1-0.6); Monocytes Percent Auto 10.1 % (2.6-8.5); Neutrophils Absolute Auto 8.8 K/mm3 (1.3-6.7); Neutrophils Percent Auto 75.7 % (45.5-73.1); Platelet Count Result 478 k/mm3 (150-375); Red Blood Count 3.29 M/mm3 (4.6-6.20); Red Cell Distribution Width 14.1 % (11.5-14.5); White Blood Count 11.6 K/mm3 (4.5-10.0)
[2024-04-12 06:24] LABS: INR 1.5; Prothrombin Time 19.1 Seconds (11.1-14.7)
[2024-04-12 06:25] LABS: Partial Thromboplastin Time 36.4 Seconds (22.3-36.8)
[2024-04-12 06:27] LABS: Alanine Aminotransferase 22 U/L (6-50); Albumin Level 3.9 g/dL (3.5-5.1); Alkaline Phosphatase 112 U/L (38-126); Anion Gap 20 mmol/L (4-12); Aspartate Amino Transferase 28 U/L (17-59); Blood Urea Nitrogen 80 mg/dL (9-20); Calcium 9.2 mg/dL (8.4-10.2); Carbon Dioxide 21 mmol/L (22-30); Chloride 88 mmol/L (98-107); Estimated CRCL calculation 8 ml/min; Estimated Glomerular Filt Rate 5; Glucose 155 mg/dL (65-110); Magnesium 2.4 mg/dL (1.6-2.3); Phosphorus 8.6 mg/dL (2.5-4.5); Potassium 4.8 mmol/L (3.4-5.0); Sodium 129 mmol/L (137-145)
[2024-04-12 08:48] LABS: Glucose Point of Care 179 mg/dl (65-105)
--- NOTE | 2024-04-12 09:07 | PC.NURSE ---
Patient off of unit to dialysis
--- NOTE | 2024-04-12 09:40 | PM.PNNEP ---
Progress Note: A&P Assessment and Plan (1) End stage renal disease: Code(s): N18.6 - End stage renal disease Status: Chronic Assessment and Plan: HD today continue T/T/S dialysis schedule while hospitalized follow electrolytes, volume status, and clearance (2) Pneumonia: Code(s): J18.9 - Pneumonia, unspecified organism Status: Acute Assessment and Plan: as noted by imaging on admission complicated by hypoxia, cough, and congestion last CXR noted: left thoracentesis planned today.... follow culture data - negative to date on antibiotics supplemental oxygen - wean as tolerated suspected etiology of left sided chest/upper abdominal pain (3) Hypertension: Code(s): I10 - Essential (primary) hypertension Status: Chronic Assessment and Plan: reasonable control at this time continue home medications follw trend of hemodynamics (4) Diastolic heart failure: Code(s): I50.30 - Unspecified diastolic (congestive) heart failure Status: Chronic Assessment and Plan: as noted by recent echo on last hospitalization volume status seems relatively stable fluid removal with dialysis to maintain euvolemia (5) Pericardial effusion: Code(s): I31.39 - Other pericardial effusion (noninflammatory) Status: Acute Assessment and Plan: as noted on previous hospitalization and by recent repeat imaging doubt uremic since he is getting good clearance with dialysis continue to monitor (6) Anemia: Code(s): D64.9 - Anemia, unspecified Status: Chronic Assessment and Plan: related to ESRD and likely worsened by acute illness Epogen with HD follow trend of H/H (7) Hyperglycemia due to diabetes mellitus: Code(s): E11.65 - Type 2 diabetes mellitus with hyperglycemia Status: Chronic Assessment and Plan: follow accu-cheks glycemic control per hospitalists Will continue to follow. Subjective Date/time seen: 04/12/24 09:40 Interval history: Follow-up for end stage renal disease. Tolerating dialysis treatment at the time of my visit (seen on HD at 9:30AM); no apparent distress voiced; breathing/respiratory status seems stable if not improved (although still on supplemental oxygen by nasal cannula); no other issues/events overnight or earlier this AM; anxious for discharge. Exam Narrative: General: WD/WN male in NAD Heart: normal S1 and S2; no rub Lungs: diminished at bases Abdomen: soft, nontender, nondistended, positive bowel sounds Extremities: no cyanosis or clubbing; no edema Skin: no rash Objective Data Vital Signs Vital Signs: Vital Signs Temp Pulse Resp BP Pulse Ox O2 Del Method O2 Flow Rate 04/12/24 09:30 75 111/67 04/12/24 09:15 75 124/61 04/12/24 09:00 72 128/73 04/12/24 10:00 76 130/78 04/12/24 08:52 74 130/68 04/12/24 08:00 97 Nasal Cannula 2 04/12/24 08:41 98.1 F 75 18 127/69 97 04/12/24 08:41 2 04/12/24 08:05 73 18 04/12/24 07:59 91 Nasal Cannula 1 04/12/24 07:57 73 18 04/12/24 05:09 71 17 94 CPAP 04/12/24 04:59 97.4 F L 71 18 121/70 96 04/12/24 04:00 71 04/12/24 01:31 80 18 04/12/24 01:26 74 19 04/12/24 01:24 74 19 92 CPAP 04/11/24 20:14 73 13 92 CPAP 04/11/24 20:13 75 24 H 04/11/24 20:06 73 24 H 04/12/24 00:00 76 04/11/24 20:00 28 H 95 CPAP 4 04/11/24 20:00 77 04/11/24 21:01 80 04/11/24 20:05 97.7 F 75 20 131/71 91 04/11/24 16:00 76 04/11/24 15:15 92 Nasal Cannula 1 04/11/24 15:04 90 Nasal Cannula 2 04/11/24 15:03 87 L Nasal Cannula 1 04/11/24 15:01 92 Nasal Cannula 1 04/11/24 15:00 87 L Room Air 04/11/24 15:43 97.3 F L 73 18 128/63 94 04/11/24 13:39 77 18 04/11/24
--- NOTE | 2024-04-12 09:40 | P.PNNP_ITS ---
Progress Note: A&P Assessment and Plan (1) End stage renal disease: Code(s): N18.6 - End stage renal disease Status: Chronic Assessment and Plan: * HD today * continue T/T/S dialysis schedule while hospitalized * follow electrolytes, volume status, and clearance (2) Pneumonia: Code(s): J18.9 - Pneumonia, unspecified organism Status: Acute Assessment and Plan: * as noted by imaging on admission * complicated by hypoxia, cough, and congestion * last CXR noted: * left thoracentesis planned today.... * follow culture data - negative to date * on antibiotics * supplemental oxygen - wean as tolerated * suspected etiology of left sided chest/upper abdominal pain (3) Hypertension: Code(s): I10 - Essential (primary) hypertension Status: Chronic Assessment and Plan: * reasonable control at this time * continue home medications * follw trend of hemodynamics (4) Diastolic heart failure: Code(s): I50.30 - Unspecified diastolic (congestive) heart failure Status: Chronic Assessment and Plan: * as noted by recent echo on last hospitalization * volume status seems relatively stable * fluid removal with dialysis to maintain euvolemia (5) Pericardial effusion: Code(s): I31.39 - Other pericardial effusion (noninflammatory) Status: Acute Assessment and Plan: * as noted on previous hospitalization and by recent repeat imaging * doubt uremic since he is getting good clearance with dialysis * continue to monitor (6) Anemia: Code(s): D64.9 - Anemia, unspecified Status: Chronic Assessment and Plan: * related to ESRD and likely worsened by acute illness * Epogen with HD * follow trend of H/H (7) Hyperglycemia due to diabetes mellitus: Code(s): E11.65 - Type 2 diabetes mellitus with hyperglycemia Status: Chronic Assessment and Plan: * follow accu-cheks * glycemic control per hospitalists Will continue to follow. Subjective Date/time seen: 04/12/24 09:40 Interval history: Follow-up for end stage renal disease. Tolerating dialysis treatment at the time of my visit (seen on HD at 9:30AM); no apparent distress voiced; breathing/respiratory status seems stable if not improved (although still on supplemental oxygen by nasal cannula); no other issues/events overnight or earlier this AM; anxious for discharge. Exam Narrative: General: WD/WN male in NAD Heart: normal S1 and S2; no rub Lungs: diminished at bases Abdomen: soft, nontender, nondistended, positive bowel sounds Extremities: no cyanosis or clubbing; no edema Skin: no rash Objective Data Vital Signs Vital Signs: Vital Signs Temp Pulse Resp BP Pulse Ox O2 Del Method O2 Flow Rate 04/12/24 09:30 75 111/67 04/12/24 09:15 75 124/61 04/12/24 09:00 72 128/73 04/12/24 10:00 76 130/78 04/12/24 08:52 74 130/68 04/12/24 08:00 97 Nasal Cannula 2 04/12/24 08:41 98.1 F 75 18 127/69 97 04/12/24 08:41 2 04/12/24 08:05 73 18 04/12/24 07:59 91 Nasal Cannula 1 04/12/24 07:57 73 18 04/12/24 05:09 71 17 94 CPAP 04/12/24 04:59 97.4 F L 71 18 121/70 96 04/12/24 04:00 71
[2024-04-12] MEDS: EPOETIN ALFA-EPBX 10,000 UNITS/ML VIAL 10000 UNITS IV PUSH (11:32)
[2024-04-12] MEDS: SODIUM CHLORIDE 0.9% IV 1,000 ML 999 ML IV CONT (11:36)
--- NOTE | 2024-04-12 14:02 | PCRCNOTE ---
PT MAY NEED A REPEAT HOME O2 EVAL CLOSER TO D/C AFTER THORACENTESIS COMPLETED. TO BE CLEAR, THIS PATIENT DOES NOT HAVE A HOME CPAP UNIT. HE IS ON AUTOPAP HERE WITH 4 L BLEED IN. HE HAS NO RESPIRATORY EQUIPMENT IN HIS HOME. HE WILL HAVE TO COMPLETE OUTPATIENT SLEEP STUDY WITH TITRATION. MAY NEED TO EXPEDITE THIS SLEEP STUDY TESTING TO PREVENT FURTHER COMPLICATIONS.
--- NOTE | 2024-04-12 14:49 | PM.IMPN ---
Progress Note: A&P Assessment and Plan (1) Acute hypoxic respiratory failure: Code(s): J96.01 - Acute respiratory failure with hypoxia Status: Acute Assessment and Plan: Patient presented with left upper quadrant abdominal pain and found left upper and lower lobe pneumonia with small pleural effusion. white blood cell count elevated and patient requiring oxygen at 2 L cough and congestion the last few days, cough is nonproductive broadened coverage with cefepime since patient gets dialysis Sputum culture ordered, blood cultures no growth to date MRSA PCR swab negative Incentive spirometry, Pep therapy DuoNebs q.6, Mucinex b.i.d. Strep pneumo, legionella urine antigens sent Extended respiratory pathogen panel added Sputum for gram stain, c&s, AFB and fungal studies Pulmonology has been consulted recs are appreciated Wean oxygen as tolerated. Still requiring oxygen today. Approved for home oxygen. Repeated X-ray imaging today as we were planning on discharging him but it was concerning that he still was needing oxygen. His x-ray shows a worsening pleural effusion. I discussed with him staying for a thoracentesis. He is agreeable to this. Thoracentesis and fluid studies ordered. (2) Pneumonia: Code(s): J18.9 - Pneumonia, unspecified organism Status: Acute Assessment and Plan: see above (3) End-stage renal disease on hemodialysis: Code(s): N18.6 - End stage renal disease; Z99.2 - Dependence on renal dialysis Status: Acute Assessment and Plan: Thursday dialysis schedule Nephrology consulted. (4) JARAD on CPAP: Code(s): G47.33 - Obstructive sleep apnea (adult) (pediatric); Z99.89 - Dependence on other enabling machines and devices Status: Acute Assessment and Plan: AutoPAP available, if respiratory symptoms worsen would utilize BiPAP Does not have CPAP at home. Apnea link completed. Needs outpatient sleep study. (5) Hypertension: Code(s): I10 - Essential (primary) hypertension Status: Chronic Assessment and Plan: blood pressure reviewed on 04/08/2024 low blood pressure overnight Reviewed nephrology notes from last admission and Dr Burns had stopped his amlodipine and placed on nifedipine. Medications were reviewed and he had been started on two calcium channel blockers at admission. Stopping amlodipine now Blood pressures have been reviewed and have improved. (6) Diastolic dysfunction: Code(s): I51.89 - Other ill-defined heart diseases Status: Acute Assessment and Plan: History diastolic dysfunction grade 1, recent echocardiogram completed last month, concurrent pericardial effusion noted. (7) Hyperglycemia due to diabetes mellitus: Code(s): E11.65 - Type 2 diabetes mellitus with hyperglycemia Status: Chronic Assessment and Plan: insulin-dependent type 2 diabetes, continuous glucose monitor in place, ACHS fingerstick glucose with high-dose sliding scale ordered, hemoglobin A1c 9.3% fasting blood glucose 186 Will add Lantus at 0.15 units per kg Plan DVT prophylaxis: Heparin on hold for thoracentesis GI prophylaxis: NA Glycemic control: High-dose sliding scale insulin, a.c. HS Accu-Cheks, hypoglycemia protocol, Lantus Code Status: Full code Disposition: Patient presented from dialysis center with complaints of left upper quadrant abdominal pain worsening with deep inspiration. He was found to have pneumonia on CT imaging with a leukocytosis and positive procalcitonin. He also had a new oxygen requirement of 4 L. He was being admitted for IV antibiotics, further workup of pneumonia, medical management of his chronic conditions. Nephrology has been consulted for his dialysis. Pulmonology was consulted for pneumonia. He has improved with IV antibiotics but his white count remained at 11 and he still was requiring oxygen. Repeat imaging on 04/11 showed a
--- NOTE | 2024-04-12 14:49 | PC.NURSE ---
Patient off of unit to ultrasound
[2024-04-12 15:32] LABS: pH Pleural Fluid 7.494 (7.210-7.500)
[2024-04-12 16:11] LABS: Appearance Pleural Fluid Cloudy (Clear); Color Pleural Fluid Other (Colorless); Pleural fluid source Pleural fluid
[2024-04-12 16:12] LABS: Lymphocytes Pleural Fluid 14 %; Neutrophils Pleural Fluid 43 % (0-25); Nucleated Cell Pleural Fluid 1141 /uL (0-1000); RBC Pleural Fluid 24000 /uL (0-10000)
[2024-04-12 16:13] LABS: Mesothelial Cells Pleural Flui 36 %; Monocytes Pleural Fluid 7 %
[2024-04-12 16:33] LABS: Adenovirus DNA Not Detected (Not Detected); Chlamydophila pneumoniae Not Detected (Not Detected); Coronavirus 229E Not Detected (Not Detected); Coronavirus HKU1 Not Detected (Not Detected); Coronavirus NL63 Not Detected (Not Detected); Coronavirus OC43 Not Detected (Not Detected); Human Metapneumovirus Not Detected (Not Detected); Human Parainfluenza Virus 1 Not Detected (Not Detected); Human Parainfluenza Virus 2 Not Detected (Not Detected); Human Parainfluenza Virus 3 Not Detected (Not Detected); Human Parainfluenza Virus 4 Not Detected (Not Detected); Human RSV B Not Detected (Not Detected); Influenza A Not Detected (Not Detected); Influenza B Not Detected (Not Detected); Mycoplasma pneumoniae Not Detected (Not Detected); Rhinovirus/Enterovirus Not Detected (Not Detected)
[2024-04-12 17:34] LABS: Glucose Point of Care 149 mg/dl (65-105)
[2024-04-12] MEDS: CALCIUM ACETATE 667 MG TABLET PO (17:37)
[2024-04-12] MEDS: guaiFENesin 12 HR 600 MG TABCR PO (21:26)
[2024-04-12] MEDS: AMITRIPTYLINE HCL 25 MG TABLET 50 MG PO (21:26)
[2024-04-12] MEDS: HYDROcodone/acetaminophen (*CRX) 5-325 MG TABLET 1 TAB PO (21:26)
[2024-04-12] MEDS: carvediloL 12.5 MG TABLET PO (21:26)
[2024-04-12] MEDS: traZODone HCL 50 MG TABLET PO (21:26)
[2024-04-12] MEDS: INSULIN GLARGINE (*BKC) 100 UNITS/ML 16 UNITS SUB-Q (21:27)
[2024-04-12] MEDS: INSULIN ASPART (*BKC) 100 UNITS/ML SUB-Q (21:27)
[2024-04-13] VITALS (13 sets, daily range): BP systolic 120; BP diastolic 64; PULSE 72–81; RESP 15–20; TEMP 36.6; O2SAT 92–95
[2024-04-13] MEDS: IPRATROPIUM 0.5 MG/ALBUTEROL SULFATE 2.5 MG AMPUL.NEB 3 ML INHALATION ×2 (02:22→08:56)
[2024-04-13 05:42] LABS: Glucose Point of Care 216 mg/dl (65-105)
[2024-04-13 05:54] LABS: Basophils Percent Auto 0.7 % (0.2-1.2); Eosinophils Percent Auto 2.5 % (0-4.4); Hematocrit 28.1 % (42.0-52.0); Hemoglobin 8.7 g/dL (14.0-18.0); Lymphocytes Percent Auto 10.7 % (18.3-44.2); Mean Corpuscular Hemoglobin 28.2 pg (26-34); Mean Corpuscular Volume 90.9 fl (80-100); Mean Platelet Volume 10.1 fl (7.4-10.4); Monocytes Percent Auto 13.7 % (2.6-8.5); Neutrophils Percent Auto 71.4 % (45.5-73.1); Platelet Count Result 384 k/mm3 (150-375); Red Blood Count 3.09 M/mm3 (4.6-6.20); Red Cell Distribution Width 14.3 % (11.5-14.5); White Blood Count 10.7 K/mm3 (4.5-10.0)
[2024-04-13 05:55] LABS: Basophils Absolute Auto 0.1 K/mm3 (0.0-0.1); Eosinophils Absolute Auto 0.3 K/mm3 (0-0.3); Immature Granulocyte Absolute 0.11 K/mm3 (0.00-0.031); Lymphocytes Absolute Auto 1.14 K/mm3 (0.9-3.2); Monocytes Absolute Auto 1.5 K/mm3 (0.1-0.6); Neutrophils Absolute Auto 7.6 K/mm3 (1.3-6.7)
[2024-04-13] MEDS: SODIUM CHLOR 3% 15 ML NEB (RESPIRATORY THERAPY) 6 ML INHALATION (05:59)
[2024-04-13 06:03] LABS: Alanine Aminotransferase 23 U/L (6-50); Albumin Level 3.4 g/dL (3.5-5.1); Alkaline Phosphatase 107 U/L (38-126); Anion Gap 12 mmol/L (4-12); Aspartate Amino Transferase 37 U/L (17-59); Bilirubin,Total 0.7 mg/dL (0.2-1.3); Blood Urea Nitrogen 48 mg/dL (9-20); Calcium 8.7 mg/dL (8.4-10.2); Carbon Dioxide 32 mmol/L (22-30); Chloride 91 mmol/L (98-107); Estimated CRCL calculation 10 ml/min; Estimated Glomerular Filt Rate 6; Glucose 97 mg/dL (65-110); Potassium 4.4 mmol/L (3.4-5.0); Sodium 135 mmol/L (137-145)
[2024-04-13 08:11] LABS: Glucose Point of Care 102 mg/dl (65-105)
--- NOTE | 2024-04-13 09:33 | PCNWS ---
Weekly nutritional screen. Patient is tolerating current diet with adequate intake 90-100% on renal, diabetic consistent carb diet. No weight loss reported. No nutritional needs at this time.
[2024-04-13] MEDS: guaiFENesin 12 HR 600 MG TABCR PO (09:38)
[2024-04-13] MEDS: HYDROcodone/acetaminophen (*CRX) 5-325 MG TABLET 1 TAB PO (09:38)
[2024-04-13] MEDS: NIFEdipine 30 MG TAB.ER.24 60 MG PO (09:38)
[2024-04-13] MEDS: carvediloL 12.5 MG TABLET PO (09:38)
[2024-04-13] MEDS: CALCIUM ACETATE 667 MG TABLET PO (09:38)
[2024-04-13] MEDS: ATORVASTATIN 40 MG TABLET PO (09:38)
[2024-04-13 12:02] LABS: Glucose Point of Care 134 mg/dl (65-105)
--- NOTE | 2024-04-13 13:07 | PM.DS ---
DS: Admitting Diagnosis Discharge Date 04/13/2023 Admitting Diagnosis Acute respiratory failure with hypoxia secondary to pneumonia and pulmonary edema DS: Discharge Diagnosis Discharge Diagnosis (1) Acute hypoxic respiratory failure: Code(s): J96.01 - Acute respiratory failure with hypoxia Status: Acute Assessment and Plan: Patient presented with left upper quadrant abdominal pain and found left upper and lower lobe pneumonia with small pleural effusion. white blood cell count elevated and patient requiring oxygen at 2 L cough and congestion the last few days, cough is nonproductive broadened coverage with cefepime since patient gets dialysis Sputum culture ordered, blood cultures no growth to date MRSA PCR swab negative Incentive spirometry, Pep therapy DuoNebs q.6, Mucinex b.i.d. Strep pneumo, legionella urine antigens sent Extended respiratory pathogen panel added Sputum for gram stain, c&s, AFB and fungal studies Pulmonology has been consulted recs are appreciated Wean oxygen as tolerated. Still requiring oxygen today. Approved for home oxygen. Repeated X-ray imaging today as we were planning on discharging him but it was concerning that he still was needing oxygen. His x-ray shows a worsening pleural effusion. I discussed with him staying for a thoracentesis. He is agreeable to this. Thoracentesis and fluid studies ordered. (2) Pneumonia: Code(s): J18.9 - Pneumonia, unspecified organism Status: Acute Assessment and Plan: see above (3) End-stage renal disease on hemodialysis: Code(s): N18.6 - End stage renal disease; Z99.2 - Dependence on renal dialysis Status: Acute Assessment and Plan: Thursday dialysis schedule Nephrology consulted. (4) JARAD on CPAP: Code(s): G47.33 - Obstructive sleep apnea (adult) (pediatric); Z99.89 - Dependence on other enabling machines and devices Status: Acute Assessment and Plan: AutoPAP available, if respiratory symptoms worsen would utilize BiPAP Does not have CPAP at home. Apnea link completed. Needs outpatient sleep study. (5) Hypertension: Code(s): I10 - Essential (primary) hypertension Status: Chronic Assessment and Plan: blood pressure reviewed on 04/08/2024 low blood pressure overnight Reviewed nephrology notes from last admission and Dr Burns had stopped his amlodipine and placed on nifedipine. Medications were reviewed and he had been started on two calcium channel blockers at admission. Stopping amlodipine now Blood pressures have been reviewed and have improved. (6) Diastolic dysfunction: Code(s): I51.89 - Other ill-defined heart diseases Status: Acute Assessment and Plan: History diastolic dysfunction grade 1, recent echocardiogram completed last month, concurrent pericardial effusion noted. (7) Hyperglycemia due to diabetes mellitus: Code(s): E11.65 - Type 2 diabetes mellitus with hyperglycemia Status: Chronic Assessment and Plan: insulin-dependent type 2 diabetes, continuous glucose monitor in place, ACHS fingerstick glucose with high-dose sliding scale ordered, hemoglobin A1c 9.3% fasting blood glucose 186 Will add Lantus at 0.15 units per kg Plan Disposition: Discharged to home DS: Summary Hospital Course Reason for hospitalization: Acute respiratory failure with hypoxia secondary to pneumonia and pulmonary edema Hospital Course: This was a 63-year-old male patient end-stage renal disease on hemodialysis Thursday, history of hypertension, insulin-dependent diabetes and obstructive sleep apnea presented to the emergency department complaints left-sided upper abdominal pain. Patient to be hypoxic requiring 4 L of oxygen. Additionally chest x-ray showed pneumonia and pleural effusion. CT scan further demonstrated left upper and lower lobe pneumonia left pleural ef
[2024-04-16 22:08] LABS: Albumin Pleural Fluid 2.2 g/dL; Amylase, Pleural Fluid <10 U/L; Glucose Pleural Fluid 118 mg/dL; LDH Pleural Fluid 146 U/L; Total Protein Pleural Fluid 4.2 g/dL
== END 2024-04-13 14:12 | disposition home or self-care (01) | DRG 193 ==
LOC: ANHED 09:23 → ANHIMU 14:05 → ANH3MED 04-08 09:10 → ANHIMU 04-14 09:35
PROVIDERS: Internal Medicine Critical Care Medicine; Internal Medicine Nephrology; Nurse Practitioner; Nurse Practitioner Acute Care; Student in an Organized Health Care Education/Training Program; Admitting Provider Internal Medicine; Emergency Provider Emergency Medicine; PCP Emergency Medicine; Visit Provider Nurse Practitioner Family
DX: J18.9 Pneumonia, unspecified organism (principal); J96.01 Acute respiratory failure with hypoxia; N18.6 End stage renal disease; I13.2 Hypertensive heart and chronic kidney disease with heart failure and with stage 5 chronic kidney disease, or end stage renal disease; I50.32 Chronic diastolic (congestive) heart failure; I31.39 Other pericardial effusion (noninflammatory); J90 Pleural effusion, not elsewhere classified; E11.22 Type 2 diabetes mellitus with diabetic chronic kidney disease; E11.42 Type 2 diabetes mellitus with diabetic polyneuropathy; E78.00 Pure hypercholesterolemia, unspecified; G47.33 Obstructive sleep apnea (adult) (pediatric); Z99.2 Dependence on renal dialysis; Z79.4 Long term (current) use of insulin; Z96.41 Presence of insulin pump (external) (internal); D63.1 Anemia in chronic kidney disease; E11.65 Type 2 diabetes mellitus with hyperglycemia; Z20.822 Contact with and (suspected) exposure to COVID-19; Z77.22 Contact with and (suspected) exposure to environmental tobacco smoke (acute) (chronic)
CPT/HCPCS: 32555; 36415; 36600; 70450; 71045; 71046; 71250; 74176; 76705; 80053; 80069; 82042; 82150; 82375; 82805; 82945; 82948; 83050; 83605; 83615; 83735; 83986; 84100; 84145; 84157; 84311; 84478; 84484; 85025; 85610; 85730; 86706; 87015; 87040; 87070; 87075; 87102; 87116; 87205; 87206; 87340; 87633; 87637; 87641; 88108; 88305; 89051; 93005; 94618; 94640; 94667; 94762; 96365; 96375; 99285; A9270; G0257; G0378; J0692; J0696; J1170; J1644; J1815; J1836; J2060; J2470; J7030; Q5105

== ENCOUNTER 2024-04-28 08:37 | Outpatient (CLI) | payer MEDICARE, SELFPAY ==
[2024-05-26 07:31] VITALS: BMI 38.7
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
== END 2024-04-29 05:04 | disposition home or self-care (01) ==
LOC: ANHCSM 08:38
PROVIDERS: PCP Emergency Medicine; Visit Provider Emergency Medicine
DX: G47.33 Obstructive sleep apnea (adult) (pediatric) (principal); G25.81 Restless legs syndrome; E11.22 Type 2 diabetes mellitus with diabetic chronic kidney disease; I12.0 Hypertensive chronic kidney disease with stage 5 chronic kidney disease or end stage renal disease; N18.6 End stage renal disease; Z99.2 Dependence on renal dialysis; Z79.4 Long term (current) use of insulin; E78.00 Pure hypercholesterolemia, unspecified; E11.42 Type 2 diabetes mellitus with diabetic polyneuropathy
CPT/HCPCS: 95810